=== PATIENT | female | born 1950 | race Caucasian/White ===

== ENCOUNTER 2018-08-18 00:51 | Outpatient (CLI) | payer MEDICARE, MEDICAID, SELFPAY ==
--- NOTE | 2018-08-18 12:00 | DI.MAMMO_ITS ---
SYMPTOMS/DIAGNOSIS: SCREENING, Z12.31 MAMMOGRAM: Mammograms were interpreted according to the usual protocol including computer analysis with CAD system, tomosynthesis and C view imaging. The breasts are of moderate density with fairly symmetrical distribution of fibroglandular tissue. No dominant mass or clumped microcalcification is identified in either breast. The current examination is compared with previous examinations including 03/27 and there has been no gross interval change in appearance in comparison with the previous studies. CONCLUSION: No specific evidence of malignancy at this time. Routine screening examinations are suggested at yearly intervals in this age group according to the ACS/ACR guidelines. Category I. Breast density Category B. MQSA ASSESSMENT OF FINDINGS: Negative. Category 1. Patient will receive a letter notifying them of these results. BI-RADS category B. There are scattered areas of fibroglandular density.
[2018-08-18 12:02] LABS: HCT 42.4 % (36.0-46.0); HGB 13.7 g/dL (12.0-15.5); Mean Corp. HGB Concentration 32.3 g/dL (32.0-36.0); Mean Corpuscular Hemoglobin 29.8 pg (27.0-33.0); Mean Corpuscular Volume 92.2 fL (80-95); Mean Platelet Volume 11.5 fL (8.0-11.0); Platelet Count 254 x1000/uL (130-400); RBC Distribution Width 13.8 % (11.7-14.6); White Blood Cell Count 9.98 k/cumm (4.4-10.8)
[2018-08-18 12:44] LABS: ALT 38 U/L (12-78); AST 28 U/L (15-37); Albumin 3.8 g/dL (3.4-5.0); Alkaline Phosphatase 97 U/L (46-116); Anion Gap 8.2 mmol/L (3-11); BUN 19 mg/dL (7-18); Bilirubin, Total 0.5 mg/dL (0.2-1.0); CO2 28.8 mmol/L (21.0-32.0); CREATININE 0.99 mg/dL (0.55-1.02); Calcium 9.5 mg/dL (8.5-10.1); Chloride 104 mmol/L (98-107); Cholesterol 205 mg/dL (50-200); Estimated GFR 55.61 (mL/min/1.73m2); Glucose 95 mg/dL (70-100); HDL Cholesterol 75 mg/dL (40-60); LDL CHOLESTEROL 104 mg/dL (<100); Magnesium 2.2 mg/dL (1.8-2.4); Potassium 4.5 mmol/L (3.5-5.1); Sodium 141 mmol/L (136-145); TSH (W/Ref FT4) 5.98 uIU/mL (0.358-3.74); Total Protein 7.3 g/dL (6.4-8.2); Triglyceride 61 mg/dL (30-150)
[2018-08-18 13:01] LABS: Vitamin D 25 Total 43.2 ng/ml (30-100)
[2018-08-18 13:05] LABS: FREE T4 0.98 ng/dL (0.76-1.46)
== END 2018-08-18 01:11 ==
PROVIDERS: PCP Family Medicine; Visit Provider Family Medicine
DX: Z12.31 Encounter for screening mammogram for malignant neoplasm of breast (principal); F41.9 Anxiety disorder, unspecified; R11.0 Nausea; M81.0 Age-related osteoporosis without current pathological fracture; E78.89 Other lipoprotein metabolism disorders
CPT/HCPCS: 36415; 77063; 77067; 80053; 80061; 82306; 83721; 85027; 83735; 84439; 84443

== ENCOUNTER 2018-11-07 11:34 | Outpatient (REF) | payer MEDICARE, MEDICAID, SELFPAY ==
[2018-11-08 11:08] LABS: Campylobacter PCR SEE COMMENTS; Salmonella PCR SEE COMMENTS; Shiga Toxin PCR SEE COMMENTS; Shigella/Enteroinvasive Ecoli SEE COMMENTS
== END 2018-11-07 11:54 ==
LOC: LBN 11:34
PROVIDERS: PCP Family Medicine; Visit Provider Nurse Practitioner Family
DX: R19.7 Diarrhea, unspecified (principal)
CPT/HCPCS: 87505; 87177; 87324

== ENCOUNTER 2018-11-22 13:07 | Outpatient (CLI) | payer MEDICARE, MEDICAID, SELFPAY ==
--- NOTE | 2018-11-22 13:00 | DI.RAD_ITS ---
SYMPTOMS/DIAGNOSIS: RT HIP PAIN, M25.551, LOW BACK PAIN, M54.5 PELVIS AND RIGHT HIP: Comparison is made with pelvis dated 5May16. The hip joint spaces are well maintained. There is prominent acetabular spurring as well as prominent spurring from both femoral heads. The findings appear to have progressed when compared with the previous exam. The SI joints show mild spurring inferiorly. Spurring is also noted from the greater trochanters and iliac wings. IMPRESSION: Moderate to severe degenerative changes with prominent spurring of both hips. LUMBAR SPINE: Comparison is made with [id number]. There are no compression fractures. There are prominent endplate osteophytes largest in the lower thoracic region. There are prominent facet degenerative changes at L 3 - 4 through L 5 - S 1. There is mild spondylolisthesis secondary to the facet degenerative changes at L 4 - 5. There is also mild L 4 - 5 disc space narrowing. The L 5 - S 1 disc space also shows moderate narrowing. No spondylolysis or scoliosis is seen. IMPRESSION: Degenerative changes greatest in the lower lumbar spine particularly of the facet joints.
[2018-11-22 14:45] LABS: TSH (W/Ref FT4) 2.66 uIU/mL (0.358-3.74)
== END 2018-11-22 13:27 ==
PROVIDERS: PCP Family Medicine; Visit Provider Family Medicine
DX: M25.551 Pain in right hip (principal); M54.5 Low back pain; R79.89 Other specified abnormal findings of blood chemistry; M16.0 Bilateral primary osteoarthritis of hip; M51.37 Other intervertebral disc degeneration, lumbosacral region
CPT/HCPCS: 36415; 85027; 86900; 86901; 72110; 73502; 84443

== ENCOUNTER 2019-01-09 14:13 | Outpatient (CLI) | payer MEDICARE, MEDICAID, SELFPAY ==
--- NOTE | 2019-01-09 13:08 | DI.RAD_ITS ---
SYMPTOM/DIAGNOSIS: HIP PAIN RIGHT HIP: Comparison is made with 11/22/18. Prominent spurring is again seen at the acetabula and margin of the femoral head. Spurring is also seen at the greater trochanter. IMPRESSION: Stable moderate degenerative changes of the right hip.
== END 2019-01-09 14:33 ==
PROVIDERS: PCP Family Medicine; Referring Provider Family Medicine; Visit Provider Student in an Organized Health Care Education/Training Program
DX: M25.551 Pain in right hip (principal); M16.11 Unilateral primary osteoarthritis, right hip
CPT/HCPCS: 99203; 99214; 73501

== ENCOUNTER 2019-01-19 00:58 | Outpatient (CLI) | payer MEDICARE, MEDICAID, SELFPAY ==
--- NOTE | 2019-01-19 07:05 | DI.RAD_ITS ---
SYMPTOM/DIAGNOSIS: RT HIP INJECTION, PRIMARY OA, M16.11 RIGHT HIP INJECTION: Fluoroscopy Time: 7.9 seconds Fluoroscopy was utilized by Dr Morrell during the performance of a right hip injection. Contrast confirms an intra-articular injection. Please refer to the procedure report for complete details.
--- NOTE | 2019-01-19 09:59 | W.PROCNOTE ---
Date of service: 01/19/19 Time of Service: 09:59 Procedure Note Date of procedure: 01/19/19 Procedure: Right Hip Injection with Fluoroscopic Guidance Surgeon/Proceduralist/Physician: Luther Morrell Procedure Diagnosis: Right Hip Osteoarthritis Procedure Indications: Colleen has had persistent and progressive pain of the RIGHT hip. Her location of pain was atypical with mostly posterior and lateral pain Noninvasive measures have been tried. To serve as diagnostic test, an injection under fluoroscopy was recommended. I had discussed the risks of the procedure and the patient elected to proceed. Procedure Description: Colleen was greeted in the flouroscopy room. The correct side was identified and the consent was reviewed with the patient and signed. The patient was then placed in the supine position on the fluoroscopy table. The RIGHT hip was then prepped with Chloraprep. The anterolateral injection starting point was identiifed by bony landmarks and fluoroscopy. The skin and soft tissue in the tract of the injection was anesthetized with 1% Lidocaine. A spinal needle was then inserted deep into the hip joint at the level of the lateral femoral neck under fluoroscopic guidance. A small amount of Omnipaque solution was injected to confirm intraarticular placement. Once confirmed, the hip was injected with 4cc of 0.5% Bupivicaine and 3cc of 1% Lidocainel. A bandaid was placed on the injection site. The patient tolerated the procedure well and noted significant improvement in pre-injection pain along with the ability to walk with less assistance.
[2019-01-19] MEDS: Bupivacaine 0.5% Pres-Free 10 ML VIAL IJ (10:46)
[2019-01-19] MEDS: Omnipaque 300 MG/ML 10 ML BTL IJ (10:47)
== END 2019-01-19 01:18 ==
PROVIDERS: PCP Family Medicine; Visit Provider Student in an Organized Health Care Education/Training Program
DX: M16.11 Unilateral primary osteoarthritis, right hip (principal); M25.551 Pain in right hip
CPT/HCPCS: 20610; 77002

== ENCOUNTER 2019-02-02 07:31 | Outpatient (CLI) | payer MEDICARE, MEDICAID, SELFPAY ==
[2019-02-02 09:19] LABS: HCT 40.7 % (36.0-46.0); HGB 13.4 g/dL (12.0-15.5); Mean Corp. HGB Concentration 32.9 g/dL (32.0-36.0); Mean Corpuscular Hemoglobin 30.2 pg (27.0-33.0); Mean Corpuscular Volume 91.9 fL (80-95); Mean Platelet Volume 11.2 fL (8.0-11.0); Platelet Count 247 x1000/uL (130-400); RBC 4.43 m/cumm (4.00-5.20); RBC Distribution Width 13.9 % (11.7-14.6); White Blood Cell Count 5.58 k/cumm (4.4-10.8)
--- NOTE | 2019-02-02 09:27 | HPE_ITS ---
Assessment and Plan (1) Primary osteoarthritis of right hip: Current visit: No Status: Chronic Plan: Patient is a reliable historian and denies any areas of skin breakdown along the groin and anterior leg. Educated patient that if she develops any lesions, redness or breakdown to contact office as skin concerns would be a reason to cancel surgery. Patient gives verbal understanding. Educated patient on surgery covering surgical technique via prosthetic models, recovery process, benefits and risks including but not limited to risk of infection, blood clot, damage to soft tissue/blood vessels/nerves in detail. After discussion patient gives verbal understanding of risks and elects to proceed with scheduling surgery. Patient and her partner had opportunity to have questions answered to their satisfaction. They will contact office if issues arise. Patient will continue to be scheduled for right total hip replacement with Dr. Morrell. History of Present Illness Narrative: Ms. Momin is a 68-year-old female who presents to clinic with her partner, Alonso, for scheduled preoperative visit for right total hip replacement with Dr. Morrell. Pain has been present for several years but worse over the past few months. Patient reports following the initial aggravation of her discomfort it has only continued to be more severe over the past several weeks causing her to need to ambulate with crutches for approximately the last 2 months. States pain is located along her buttocks with ambulation. Pain is further aggravated with prolonged walking and worse so with her first few steps. Although she denies any anterior groin pain her discomfort is elicited with hip range of motion. Denies pain aggravated with laying or with sitting. Denies any injuries or falls. Due to her discomfort she received an intraarticular injection under fluroscopy by Dr. Morrell on 01/19/19 which helped for a few minutes and made her realize that her baseline pain was worse than she had thought. Denies any pain medications or ice/heat application. Patient previously had x-rays obtained on 11/22/2018 as well as on 01/09/2019 which showed significant osteophytes along the acetabulum and femoral head, loss of contour of femoral head/neck, sclerosis and decreased joint space consistent with severe degenerative changes. Due to her continued pain and known right hip arthritis that causes difficulty completing desired activity despite rest, using assistive device and intra-articular injection Dr. Morrell offered surgical intervention and patient was eager to proceed. Pertinent Surgical Information Denies past medical history of: Hypertension, stroke, cardiac issues, angina, asthma, COPD, renal issues, liver issues, hepatitis, gastrointestinal ulcers, hyperlipidemia, bleeding disorders, seizures, migraines, diabetes, autoimmune disorders Denies prior complications from surgery or anesthesia. Review of Systems Constitutional Denies fever(s), Denies frequent falls and Denies headache(s) Eyes Denies change in vision ENT Denies dizziness, Denies ear discharge, Denies headache(s), Denies epistaxis, D enies nasal discharge and Denies sore throat Cardiovascular Denies chest pain, Denies rapid heart rate, Denies irregular heart rhythm, Denies dyspnea, Denies dyspnea on exertion, Denies orthopnea, Denies paroxysmal nocturnal dyspnea and Denies slow heart rate Comments: Reports she does not wear CPAP machine currently; has plans to repeat sleep study Respiratory Denies cough, Denies dyspnea, Denies dyspnea on exertion and Denies wheezing Gastrointestinal Denies abdominal pain, Denies melena, Denies hematochezia, Denies constipation, Denies diarrhea, Denies nausea and Denies vomiting Genitourinary Denies hematuria, Denies dysuria and Denies urinary urgency Musculoskeletal Reports as per HPI, Denies numbness and Denies tingling Neurologic Denies dizziness, Denies frequent falls, Denies headache(s), Denies numbness and Denies tingling Allergic/Immunologic Denies wheezing [facility] Medical History (Updated 02/02/19 @ 13:14 by Anne Barrera) Acute cystitis (Inactive) Alcohol intake above recommended sensible limits (Chronic 09/14/13) Anxiety (Chronic 03/31/12) Cervical high risk human papillomavirus (HPV) DNA test positive (Chronic 12/17/11) Closed displaced fracture of lateral malleolus of right fibula (Inactive 09/23/15) Degenerative spondylolisthesis (Chronic 08/31/13) Diarrhea (Inactive 09/29/16) Diverticulosis of colon without diverticulitis (Chronic) Ganglion of tendon sheath (Chronic) Insomnia (Chronic 04/12/14) Intention tremor (Chronic) Moderate obstructive sleep apnea (Chronic 01/10/16) Osteoporosis (Chronic) Smoker (Chronic 11/01/14) Tinnitus (Chronic 02/08/14) Vaginal atrophy (Chronic 11/01/14) Surgical History (Updated 02/02/19 @ 13:14 by Anne Barrera) Appendectomy colposcopy Tonsillectomy Family History Mother Dementia Neoplasm Father Neoplasm Social History (Updated 08/10/18 @ 07:56 by Michael Evans) Smoking/Tobacco Use Status: Former Tobacco Use Quit Date: 02/09/18 Alcohol Intake: former Drug use: Never Substance use type: does not use Pets and animals: No What type of physical activity do you participate in: none Amanda/Catholic: Jainism Special amanda needs: Yes (INDUCTION BRAZER TO COME PRAY WHEN DYING.) Do you feel safe in your relationship?: Yes Meds Home Medications Medication Instructions Recorded Confirmed Type Caltrate-600 With Vit D Tab 3 ea PO DAILY 09/19/12 02/02/19 History Centrum Silver Tablet 1 ea PO DAILY 09/19/12 02/02/19 History gabapentin 300 mg capsule 600 mg PO HS #360 tab 08/09/18 02/02/19 Rx escitalopram oxalate 10 mg tablet 10 mg PO DAILY #30 tab 09/27/18 02/02/19 Rx nortriptyline 25 mg capsule 50 mg PO QHS #180 cap 11/22/18 02/02/19 Rx nicotine 21 mg/24 hr daily 1 patch TD DAILY #28 each 12/21/18 02/02/19 Rx transdermal patch Allergies Allergy/AdvReac Type Severity Reaction Status Date / Time ibuprofen Allergy Unknown ITCHING, Verified 02/02/19 09:53 FACE SWELLS Sulfa (Sulfonamide AdvReac Unknown NAUSEA Verified 02/02/19 09:53 Antibiotics) Exam Const General: cooperative and no acute distress [facility] Head: normal to inspection, normocephalic and atraumatic Ears: external ears normal General nose exam: external nose normal and no nasal discharge Face and sinus: face symmetric Mouth: oral mucosae normal, lip normal, tongue normal and moist mucous membranes Teeth and gingiva: dentition normal Throat: posterior oropharynx normal Eyes General: appearance normal, both eyes and all related structures Pupils: PERRL EOM: EOM intact bilaterally Neck Neck: trachea midline Carotids: normal carotid upstroke Lymphatic: no lymphadenopathy noted Resp Effort & Inspection: normal respiratory effort and able to speak in complete sentences Auscultation: clear to auscultation bilaterally, no rales, no rhonchi and no wheezes Cardio Heart Sounds: S1 normal, S2 normal, no murmurs and no other Pulses: radial pulses present bilaterally GI Palpation: soft, no hepatosplenomegaly and nontender Auscultation: normal bowel sounds Extrem Other: Right hip examination: Patient is able to flex her hip to approximately 90 degrees which elicits posterior lateral hip discomfort. Patient is able to complete straight leg raise and Stitchfield test which causes slight aggravation along the posterior aspect of her hip. Results Labs : 02/02/19 09:10 02/02/19 09:10 Laboratory Results - last 24 hr 02/02/19 09:10 WBC 5.58 RBC 4.43 Hgb 13.4 Hct 40.7 MCV 91.9 MCH 30.2 MCHC 32.9 RDW 13.9 Plt Count 247 MPV 11.2 H
[2019-02-02 10:12] LABS: Anion Gap 8.4 mmol/L (3-11); BUN 21 mg/dL (7-18); CO2 27.6 mmol/L (21.0-32.0); CREATININE 0.87 mg/dL (0.55-1.02); Calcium 9.4 mg/dL (8.5-10.1); Chloride 104 mmol/L (98-107); Glucose 99 mg/dL (70-100); Potassium 4.2 mmol/L (3.5-5.1); Sodium 140 mmol/L (136-145)
== END 2019-02-02 07:51 ==
PROVIDERS: PCP Family Medicine; Visit Provider Student in an Organized Health Care Education/Training Program
DX: Z01.812 Encounter for preprocedural laboratory examination (principal); M16.11 Unilateral primary osteoarthritis, right hip; Z01.818 Encounter for other preprocedural examination
CPT/HCPCS: 36415; 80048; 85027; 86850; 86900; 86901; NC

== ENCOUNTER 2019-02-09 05:44 | Inpatient (IN) | payer MEDICARE, MEDICAID, SELFPAY ==
[2019-02-02 08:00] VITALS: BP 125/76; PULSE 62; RESP 18; TEMP 36.7; O2SAT 96
[2019-02-02 08:09] VITALS: BP 125/76; PULSE 62; RESP 18; TEMP 36.7; O2SAT 96
[2019-02-09] VITALS (17 sets, daily range): BP systolic 92–138; BP diastolic 53–78; PULSE 45–66; RESP 12–18; TEMP 36.1–36.7; O2SAT 94–100
[2019-02-09] MEDS: Acetaminophen 500 MG TAB 1000 MG PO ×3 (06:39→19:48)
[2019-02-09] MEDS: Celecoxib 200 MG CAP 400 MG PO (06:39)
[2019-02-09] MEDS: Lactated Ringers 1,000 ML 80 ML IV ×3 (06:40→23:50)
[2019-02-09] MEDS: ceFAZolin 2 GM/50 ML BAG IVPB (07:40)
[2019-02-09] MEDS: Bupivacaine 0.25% Pres-Free 30 ML VIAL (08:20)
[2019-02-09] MEDS: Ketorolac 30 MG/ML VIAL (08:20)
[2019-02-09] MEDS: Normal Saline 20 ML VIAL (08:21)
--- NOTE | 2019-02-09 09:05 | DI.RAD_ITS ---
SYMPTOM/DIAGNOSIS: OA RT HIP RIGHT HIP Fluoroscopy Time: 39.1 sec., 5.99 mGy The intraoperative examination demonstrates a LILY. The prosthesis is in excellent position. Surrounding bone intact.
--- NOTE | 2019-02-09 10:08 | DI.RAD_ITS ---
SYMPTOM/DIAGNOSIS: S/P RT LILY PORTABLE POSTOPERATIVE EXAMINATION OF THE RIGHT HIP: A right hip prosthesis appears to be in good position, unchanged when compared with the intraoperative examination of the same date.
--- NOTE | 2019-02-09 12:33 | ROE_ITS ---
Date of service: 02/09/19 Time of Service: 09:49 Operative Note DATE OF PROCEDURE: 02/09/19 PRE-OP DIAGNOSIS: Right Hip Osteoarthritis POST-OP DIAGNOSIS: same PROCEDURE: Right Anterior Total Hip Arthroplasty SURGEON: Luther Morrell MANAGER STUDIO: Anne Barrera ANESTHESIA: spinal ESTIMATED BLOOD LOSS: 200 PATHOLOGY: none sent COMPLICATIONS: None Patient was transported to: PACU Patient's condition: stable Implants: 1. Depuy [place] Acetabular Component, 52mm 2. Depuy Acetabular Liner, [id number] 3. Depuy Corail Coxa Vara Femoral Stem, Size 15 4. Depuy Altrx Ceramic Femoral Head, Size 36+1.5mm Indications: I have seen Colleen in clinic for symptoms of hip arthritis, confirmed with radiographic findings. She has exhausted nonoperative methods and was having significant limitations in daily function and desired better function and less pain. I discussed the technical details of a hip replacement. I explained the risks of the procedure to include, but not limited to, bleeding, infection, pain, stiffness, fracture, damage to nerves and vessels, damage to muscles and tendons, loosening, instability, leg length inequality, need for repeat procedure, blood clot and cardiopulmonary demise. Despite these risks, Colleen elected to proceed. Findings: There was significant signs of arthritis throughout the hip. There were encroaching osteophytes around the entirety of the acetabulum, small lateral neck osteophyte, and floor osteophyte of the acetabulum. Procedure Description: Colleen was greeted in the preoperative holding area where the correct side was identified and marked. The consent was reviewed with the patient and signed. The history and physical was updated. All questions were answered. Colleen was taken back to the operating room. A spinal anesthestic was then administered. The patient was placed into the supine position on the operating room table. The patient was then positioned onto the ARCH table. Both feet were wrapped with [place]br[place] cotton wrap along with Coban. The feet were placed in specialized boots for the ARCH table, well seated within the boot and secured. SCDs were applied. The patient was then slid down onto a peroneal post and the nonoperative leg was secured in a leg casanova attached to the table. The operative side was placed into the ARCH table attachment and bed height and positioning was secured. A preoperative AP pelvis was obtained to serve as a reference for determining leg lengths. Prophylactic antibiotics in the form of cefazolin were administered. 1g of Tranxemic Acid was given intravenously within 30 minutes of incision. The right leg was then prepped with Chloraprep and draped in a standard fashion with a large shower-curtain type drape with Iodine impregnated skin protection. A timeout to confirm correct identity, side and site, procedure, allergies, anesthesia, and medical concerns was performed. An obliquely oriented incision was made starting lateral to the ASIS and running distal over the Tensor Fascia Marlene (TFL) muscle belly toward the fibular head, approximately 10cm. The skin and soft tissue was dissected sharply, through Luisana?s fascia, and to the fascia of the TFL. With the fascia and superior border of the IT band identified, the fascia was incised with a new knife just above any perforators from the IT band. The TFL muscle belly was bluntly dissected away from the fascia and moved laterally. The fat between TFL and rectus was identified to ensure the dissection was not within the TFL. Blunt dissection created space between abductors and the capsule and retractor was placed over the lateral femoral neck. The fibers of the rectus femoris tendon were identified and these were freed from the anterior capsule. A second cobra retractor was placed around the medial femoral neck. The TFL was further retracted laterally to show the deep fascia. Careful dissection through this layer identified three main crossing vessels of the lateral femoral circumflex. These were cauterized in multiple locations and then cut without any noticeable bleeding. The TFL was further released bluntly from the deep fascia to expose anterior hip capsule and fat the Celso orthopaedic retractor was then placed beneath the TFL and against sartorius and medial soft tissues to protect and retract the soft tissues. A T-capsulotomy was then performed starting at the superior lateral acetabulum and moving distally to the intertrochanteric ridge. These capsular flaps were tagged with a No. 1 Ethibond and elevated from within. The capsular flaps were released to the shoulder of the lateral neck and to the lesser trochanter to give excellent visualization of the proximal femur. A neck osteotomy was performed using an oscillating saw based on preoperative templates. This cut started in the shoulder and of the lateral neck and exited medially. The saw was at all times directed medially to avoid injury to the greater trochanter. 6cm of traction was applied to the leg and the osteotomy opened. The femoral head was removed with a corkscrew, making sure to protect the TFL on its exit. This was measured on the back table to determing the starting reamer size. Portions of the rectus obscuring visualization were minimally elevated off the superior acetabulum. An anterior retractor was placed over the anterior wall between capsule and labrum. A posterior retractor was placed similarly. This provided excellent visualization. The contents of the cotyloid fossa were removed with electrocautery and the labrum was removed with a knife. There was a notable floor osteophyte. There was significant chondromalacia of the superior acetabulum. Acetabular reaming began with a 47 mm reamer. This first reaming was directed anterior to posterior and medial to get down to the true floor. This was inspected and reamed until the true floor was reached. I then reamed sequentially up to a 51 mm reamer where good fit was obtained. The larger reamers were oriented based on anatomical reference of the anterior and lateral renteria to ensure proper abduction and anteversion. Positioning and size was confirmed with the fluoroscopy. A 52 mm Depuy [place] acetabular component was selected. The acetabulum was reamed around the periphery with the selected acetabular size to prevent a rim fit. The deep tissues were irrigated. The acetabular component was then impacted in a position of about 40-45 degrees of abduction and 15-20 degrees of anteversion, using the patient?s anatomy as the ultimate landmark. Fluoroscopy was used to confirm this. There was excellent shirt ironer of the acetabular component and the inserting handle was removed. The acetabular liner, Depuy 52 x 36 mm polyethylene liner, was inserted and lined up with the tines of the acetabular component. There was no soft tissue interposition. The liner was then impacted into position and confirmed to be well-seated. A portion of the yolie-articular cocktail was then injected around the acetabulum into the capsule and periosteum. This cocktail consisted of 50cc of 0.25% Bupivicaine and 20cc of Exparel, expanded to a total of 120cc. Traction was released from the femur. The leg was rotated to 120 degrees. Any remaining medial capsule was released until the lesser trochanter was easily palpable. A Lopez retractor was placed medially. The lateral capsule was further released into the shoulder to allow access to the greater trochanter. A Lopez retractor was placed over the greater trochanter which allowed the trochanter to flip in front of the capsule for excellent exposure. The leg was brought down into maximal extension and 20 degrees of adduction while ensuring there was no impingement on the acetabulum. Any remnant capsule within the trochanter was released. Piriformis and obturator externis were identified and protected. There was excellent access to the proximal femur. The lateral neck remnant was removed with a rongeur. A blunt canal probe was used to identify the canal and trajectory for later b roaching. A box osteotome initiated the broach course. A small curved rasp and a curved curette were used to work laterally. Broaching then began with a size 8 Corail broach. This was inserted manually around the trochanter and into the canal before mallet blows. The broach was seated to a few millimeters below the cut level based on the neck cut and the preoperative template. Sequential bro aching was continued until a tight fit was obtained with good rotational control of the femur. A trial coxa vara neck was inserted along with a +1.5 trial head. The leg was brought out of extension and adduction and then reduced with traction and internal rotation. The leg was stable anteriorly in a position of 30 degrees of extension and 90 degrees of external rotation. Fluoroscopy was used to ensure there was no fracture and the stem was seated well. Leg lengths were checked with an AP pelvis and pelvic reference points. Once content with the desired offset and leg lengths, the leg was brought back into extension, external rotation and adduction. The periosteum and surrounding tissue was injected with remaining portion of the yolie-articular cocktail. The proximal femur was irrigated as well as the deep tissues. The Depuy [place] coxa vara stem, size 15, was then manually inserted into the proximal femur making sure to control rotation. It was then malleted into position with light blows, giving breaks to allow bone expansion and decrease risk of fracture. The selected Depuy Altrx Ceramic Head, size 36+1.5 mm, was then placed onto the clean and dry trunnion and secured with impaction onto the tapered fit. The leg was brought back out of extension and adduction and reduced with traction and internal rotation. Stability was confirmed with no shuck at 90 degrees of external rotation and 30 degrees of extension. No impingement through range of motion arc. Final x-ray images were obtained with fluoroscopy to confirm adequate positioning and no intraoperative fracture. The deep tissues were thoroughly irrigated with a pulse lavage. The second dose of TXA 1g was administered intravenously. The capsule was then reapproximated with the previously placed Ethibond sutures. The TFL fascia was finally closed with a No. 2 Stratafix, barbed suture. Deep tissues were then reapproximated with 0 Vicryl and a running 2-0 Vicryl. The skin was closed with a running 4-0 Monocryl in a subcuticular fashion. This was reinforced with skin glue. A Mepilex silver dressing was applied. At the end of the case, all counts were correct. Colleen was transferred to the hospital bed without difficulty and suffering no apparent complication. Colleen has a good prognosis. Physical therapy will start today and without restrictions, weight-bearing as tolerated. Aspirin 81mg BID will be used for DVT prophylaxis.
[2019-02-09] MEDS: Calcium 600mg/Vit D 200U TAB 1 TAB PO ×2 (14:01→19:48)
--- NOTE | 2019-02-09 14:57 | PT.INIE ---
Date of service: 02/09/19 Time of Service: 13:42 PT Notes Inpatient Physical Therapy Evaluation Date: 02/09/2019 Referring Doctor: Luther Morrell MD PT Orders: PT CONSULT: Status post right anterior LILY Precautions: Fall. Standard. WBAT on right LE. Patient Profile/Admitting Diagnosis: Patient is a 68-year-old female with primary unilateral osteoarthritis of right hip status post right anterior total hip arthroplasty on postoperative day 0. PMHX: Medical History (Updated 02/02/19 @ 13:14 by Anne Barrera) Acute cystitis (Inactive) Alcohol intake above recommended sensible limits (Chronic 09/14/13) Anxiety (Chronic 03/31/12) Cervical high risk human papillomavirus (HPV) DNA test positive (Chronic 12/17/11) Closed displaced fracture of lateral malleolus of right fibula (Inactive 09/23/15) Degenerative spondylolisthesis (Chronic 08/31/13) Diarrhea (Inactive 09/29/16) Diverticulosis of colon without diverticulitis (Chronic) Ganglion of tendon sheath (Chronic) Insomnia (Chronic 04/12/14) Intention tremor (Chronic) Moderate obstructive sleep apnea (Chronic 01/10/16) Osteoporosis (Chronic) Smoker (Chronic 11/01/14) Tinnitus (Chronic 02/08/14) Vaginal atrophy (Chronic 11/01/14) Surgical History (Updated 02/02/19 @ 13:14 by Anne Barrera) Appendectomy colposcopy Tonsillectomy Social History/Home Situation: Patient lives with significant other Leeroy and in a 1 floor house with small step up to enter without rails. She has 3 steps to the kitchen without rails. Patient states that she has been using bilateral axillary crutches for the past 2 to 3 months indoors and outdoors as the the pain on the right hip had become unbearable. She was independent with all aspects of mobility ADLs using bilateral axillary crutches. Current Functional Limitations: Need for assistance for all transfer and ambulation task performance using front wheeled walker Equipment Owned/DME: Bilateral axillary crutches, grab bar Subjective: Patient is agreeable to a PT consult and treatment today. She denies headache, chest pain, and palpitations. She does report feeling woozy when she sat up at the edge of the bed. She reports that with weight bearing she does not have considerable pain but she knows that the hip is there. She complains of continued inability to sleep well and is hopeful that while recuperating at the hospital she can get the sleep the sleep she needs. She is open to having home health physical therapy upon discharge in order to ensure her safe transition back to home. Objective: General Observation: Patient seen resting in bed. 1 L of oxygen supplementation via NC. IV in right UE. Anti-thromboembolic pump on bilateral legs. TEDS on bilateral legs. Cold pack on right hip. Mepilex Ag over surgical incision. Minimal edema noted adjacent to surgical incision. Intention tremor observed on the head and neck. Mental Status: Alert and oriented x4 Pain: 0/10 pain on the right hip, 1/10 pain with mobility performance. ROM: Right Upper Extremity: Shoulder Flexion WFL. Shoulder abduction WFL. Elbow flexion WFL. Wrist flexion WFL. Functional opening and closing of hand WFL. Left Upper Extremity: Shoulder Flexion WFL. Shoulder abduction WFL. Elbow flexion WFL. Wrist flexion WFL. Functional opening and closing of hand WFL. Right Lower Extremity: Hip flexion allows up to 170 degrees. Hip abduction WFL. Knee flexion WFL. Ankle dorsiflexion WFL. Ankle plantarflexion WFL. Left Lower Extremity: Hip flexion WFL. Hip abduction WFL. Knee flexion WFL. Ankle dorsiflexion WFL. Ankle plantarflexion WFL. Strength: Right Upper Extremity: Shoulder flexors 5/5. Shoulder abductors 5/5. Elbow flexors 5/5. Elbow extensors 5/5. Gear Hobber Set Up Operator strong. Left Upper Extremity: Shoulder flexors 5/5. Shoulder abductors 5/5. Elbow flexors 5/5. Elbow extensors 5/5. Gear Hobber Set Up Operator strong. Right Lower Extremity: Hip flexors 4/5. Hip abductors 5/5. Knee flexors 4/5. Knee extensors 4/5. Ankle dorsiflexors 5/5. Ankle plantarflexors 5/5. Left Lower Extremity:Hip flexors 5/5. Hip abductors 5/5. Knee flexors 5/5. Knee extensors 5/5. Ankle dorsiflexors 5/5. Ankle plantarflexors 5/5. Sensation: Intact as to pain and pressure on bilateral lower extremities. Bed Mobility/Transfers: Rolling SBA with HOB 30 degrees Supine to sit SBA with HOB 30 degrees Sit to supine SBA with HOB 30 degrees Sit to stand CGA Stand to sit CGA Bed to chair CGA Chair to bed CGA Gait: Patient was able to tolerate short distance ambulation of (8 feet +1 turn +2 steps backs) x 2 using FWW with WBAT on right with step to gait pattern with CGA assist and IV pole management of this PT. Minimal verbal cues needed for for walker management and safety. Balance: Static Sitting: Normal Dynamic Sitting: Normal Static Standing: Good Dynamic Standing: Fair Special Tests: Mobility Limitations Standardized Measure [facility] AM-PAC 6 clicks Basic Mobility Inpatient Short Form: Raw Score: 20 CMS Score: 36% deficit Informed Consent/Education: Patient instructed in purpose of PT consult and plan of care. Patient was instructed with performing hourly exercises consisting of: 1 ankle pumping x30, bilateral quadriceps setting held for 5 counts x10, and alternate [id number] x10 ensuring deep breathing exercises in between each activity. Assessment: Patient presents with clinical signs and symptoms consistent with current/admitting diagnoses and postoperative status that have resulted to mobility limitations, gait instability, generalized weakness, and impairment of motor control as demonstrated by the following impairment level findings: 1. Postoperative weakness of R hip major muscle groups 2. Impaired standing balance 3. Impaired activity tolerance Impairments are contributing to the following functional limitations: 1. Dependent bed mobility skills 2. Increased dependence with transfers 3. Inability to safely ambulate without assistive device and physical assistance 4. Increase completion time for mobility ADL performance 5. Increased fall risk 6. Inability to negotiate steps alone safely Patient is assessed as a [id number] moderate complexity based on the following: History: 68-year-old cognitively intact female with primary unilateral osteoarthritis of right hip status post right anterior total hip arthroplasty on postoperative day 0 Examination: Demonstrable impairment in strength, balance, and mobility level with underlying impairments and functional limitations as documented above Presentation:Evolving Decision Makin moderate complexity Goals: Goals X1 week 1. Supine-Sit independent 2. Sit-Supine independent 3. Sit-Stand independent 4. Stand-Sit independent 5. Bed-Chair independent 6. Chair-Bed independent 7. Independent gait on level surface with use of least restrictive device for at least 300 feet without report of pain nor dyspnea 8. Independent stair negotiation while holding onto bilateral rails for at least 5 steps without report of pain nor dyspnea 9. Independent with home exercise program 10. Good static and dynamic standing balance/tolerance Plan of Care/Treatment Plan: 1-2x/day, 7 days/week x 1 week. Plan of care has been reviewed with the [employer] providing the service under Physical Therapy direction. Initiate Physical Therapy intervention for strengthening, bed mobility, transfers, gait, stairs, balance training, use of assistive device. DISCHARGE RECOMMENDATIONS: Patient will need a front wheeled walker upon disharge to home in order to maximize mobility and reduce fall risk. 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 Patient will benefit from home health PT services in order to progress mobility level using least restrictive assistive ambulatory device/using no device, assess home safety, identify additional equipment needs, and establish a functional maintenance program that will increase ability of patient to remain at home. TREATMENT CODE/TIME: 05171 x30 minutes, 9753 0 x 9 minutes, 9711 0 x 9 minutes, beginning at 13:42 PM. Thank you very much for this referral. Gabriela Rodriguez PT, DPT, CLT [facility]
[2019-02-09] MEDS: traMADol 50 MG TAB PO (18:22)
[2019-02-09] MEDS: Normal Saline Flush 10 ML SYR IV (19:47)
[2019-02-09] MEDS: HYDROmorphone 2 MG/ML VIAL 0.5 MG IVP (19:48)
[2019-02-09] MEDS: Celecoxib 100 MG CAP 200 MG PO (19:49)
[2019-02-09] MEDS: Gabapentin 300 MG CAP 600 MG PO (22:24)
[2019-02-09] MEDS: LORazepam 0.5 MG TAB PO (22:25)
[2019-02-10 03:50] VITALS: BP 103/64; PULSE 66; RESP 18; TEMP 36.5; O2SAT 95
[2019-02-10] MEDS: LORazepam 0.5 MG TAB PO ×3 (04:20→21:27)
[2019-02-10] MEDS: traMADol 50 MG TAB PO ×3 (06:10→15:26)
[2019-02-10 07:10] VITALS: BP 109/69; PULSE 73; RESP 19; TEMP 36; O2SAT 95
[2019-02-10] MEDS: Acetaminophen 500 MG TAB 1000 MG PO ×3 (08:11→20:57)
[2019-02-10] MEDS: Calcium 600mg/Vit D 200U TAB 1 TAB PO ×3 (08:12→20:58)
[2019-02-10] MEDS: Multivitamin w/Minerals TAB 1 TAB PO (08:12)
[2019-02-10] MEDS: Celecoxib 100 MG CAP 200 MG PO ×2 (08:12→20:57)
[2019-02-10] MEDS: Pantoprazole 40 MG TABCR PO (08:12)
[2019-02-10] MEDS: Nicotine 21 MG/24 HR PATCH TD (08:14)
--- NOTE | 2019-02-10 08:42 | PDOC.CMIN ---
Care Management Initial Assess REASON FOR HOSPITALIZATION:: Right Hip DJD PAST MEDICAL HISTORY/PAST SURGICAL HISTORY:: Acute cystitis, alcohol abuse, anxiety, HPV, closed displaced fracture of lateral malleolus of right fibula, degenerative spondylolisthesis, diarrhea, diverticulosis of colon without diverticulitis, ganglion of tendon sheath, insomnia, intention tremor, moderate STEPHANIE, osteoporosis, smoker, tinnitus, vaginal atrophy, appendetomy, colonoscopy, tonsillectomy PREVIOUS FUNCTIONAL STATUS/SOCIAL/FAMILY SUPPORTS:: Colleen resides in [place], [place]. Her significant other, Leeroy resides with her as she provides oversight due to Alzheimer's Dementia. Colleen is independent at baseline with all ADLs in the community. CURRENT FUNCTIONAL STATUS:: Colleen was lying in bed, eyes closed when CM entered. Her SO, was at her bedside. She reported wanting to rest, which CM permitted. Dr. Morrell reported Colleen will remain at [facility] overnight to rest prior to returning home tomorrow. ADVANCE DIRECTIVES:: On file at [facility]: Bhavesh and Ross [employer]omin; Co-Agents Has patient been provided with information about the portal?: Yes Did the patient sign up for the portal?: No CODE STATUS:: Full Code INSURANCE COVERAGE / FINANCIAL ISSUES:: [facility] CURRENT HOME/COMMUNITY SERVICES/EQUIPMENT:: No current services or equipment. PRIMARY CARE PHYSICIAN:: Radhika Amaro DO POTENTIAL DISCHARGE NEEDS:: [facility] and [facility] referrals through [facility], FWW coordination, PT evaluation. PATIENT/FAMILY EDUCATION NEEDS:: Review of community based supports, discharge instructions, discuss self care needs upon discharge [facility]. ANTICIPATED BARRIERS TO DISCHARGE:: None identified. TRANSPORTATION:: Via private vehicle with family. PLAN:: Colleen will return home when ready per MD. She will have new FWW through [facility] at patient request as well as referrals for [facility] and [facility] through [facility]. Colleen will follow up with Dr. Morrell and her plan of care as prescribed. She will transport via private vehicle with family.
--- NOTE | 2019-02-10 08:52 | PT.INTREAT ---
Date of service: 02/10/19 Time of Service: 08:53 PT Notes Inpatient Physical Therapy Treatment Note [facility] Date: 02/10/19 PRECAUTIONS: Fall, WBAT R SUBJECTIVE: Colleen states that she is feeling a little sore this morning, but is agreeable to participating in PT. OBJECTIVE: PAIN: Patient c/o soreness in R hip area BED MOBILITY/TRANSFERS Supine-sit: I Sit-stand: S Stand-sit: S GAIT Assistive Device: FWW Weight bearing: WBAT R Assist: SBA Distance: 100' x2 THEREX: Patient completed a LE strengthening and stabilization program, in both seated and supine positions, as per flow sheet. STAIRS: Up/down 3x4 and 2x6 using B axillary crutches and a step-to pattern with SBA TOILETING: Patient toileted with supervision for transfers. ASSESSMENT: Patient tolerated session with c/o R hip soreness t/o session. Patient tolerated a progression in gait distance with FWW support and SBA as well as the addition of stair training. She would benefit from continued strengthening and gait training for improved mobility and activity tolerance. PLAN: As per primary PT TREATMENT CODE/TIME: 30 minutes; 60713, [id number]
[2019-02-10] MEDS: Normal Saline Flush 10 ML SYR IV ×2 (09:02→21:23)
--- NOTE | 2019-02-10 09:41 | PHARADMIT ---
Admission Pharmacy Clinical Review right hip djd Code Status Full Code Current Weight Wgt-94.8 kg Renally Cleared and Narrow Therapeutic Index Meds CrCl~ 62.8 mL/min Meds-OK QTc Value / Action Taken none BP Control, Fever BP-109/69 Tmax- 36.7C Electrolytes reviewed na DVT Prophylaxis TEDS, SCDs Opiate Usage / Scheduled Bowel Regimen Ordered Yes Yes Plt/SCr for Heparin / Enoxaparin na SCr-0.87 INR for Warfarin na H/H stable, WBC/Bands na Antibiotic appropriateness Ancef Cultures and Sensitivities none Surgical ABX d/c within 24 hr Yes DM control / Insulin Dose na Heart Failure (Check EF%) (ROMAN's, B-Block, Diuretics) none IV to PO Switch No Home Meds Reviewed Yes Home Meds Not Ordered Lexapro, Clonidine, Atarax, Comments
[2019-02-10 11:03] VITALS: BP 105/68; PULSE 73; RESP 18; TEMP 36; O2SAT 98
--- NOTE | 2019-02-10 11:09 | DSE_ITS ---
Date of service: 02/11/19 Time of Service: 08:52 DS: Diagnosis Discharge Diagnosis (1) Primary osteoarthritis of right hip: Status: Chronic Discharge Plan Disposition Patient Disposition: HOME W/HOME HEALTH SERVICE Condition: Good Discharge Details Reason For Visit: RIGHT HIP DJD Admit Date/Time: 02/09/19 05:44 Admit Provider: Luther Morrell Attending Provider: Luther Morrell Primary Care Provider: Radhika Amaro [facility] Course Hospital Course: Patient was admitted to the medical/surgical floor following the procedure. It was tolerated well without any notable medical, surgical, or anesthetic complications. Mobilization began postoperatively. The gentile catheter was removed and voiding spontaneously. Vitals were stable. Physical therapy worked with the patient and was cleared for discharge home. No acute medical issues. Home Meds and New Rx's Prescriptions: New celecoxib 200 mg capsule 200 mg PO BID PRN (Reason: pain) Qty: 60 RF: 1 acetaminophen 500 mg tablet 1,000 mg PO Q8H PRN (Reason: pain) Qty: 90 RF: 3 pantoprazole 40 mg tablet,delayed release (DR/EC) 40 mg PO DAILY Qty: 30 RF: 0 tramadol 50 mg tablet 50 mg PO Q4H PRN (Reason: pain) Qty: 12 RF: 0 Continued gabapentin 300 mg capsule 600 mg PO HS Qty: 360 RF: 11 lorazepam 0.5 mg tablet 0.5 mg PO QHS MDD 2 PRN (Reason: insomnia) Qty: 90 RF: 3 nortriptyline 25 mg capsule 50 mg PO QHS Qty: 180 RF: 6 escitalopram oxalate 10 mg tablet 10 mg PO DAILY Qty: 30 RF: 5 CALTRATE-600 WITH VIT D TAB 1 EACH tablet 3 ea PO DAILY RF: 0 CENTRUM SILVER TABLET 1 EACH tablet 1 ea PO DAILY RF: 0 nicotine 21 mg/24 hr patch 24 hour 1 patch TD DAILY Qty: 28 RF: 4 Discharge Instructions Additional Instructions: Dr. Morrell?s Total Hip Discharge Instructions Activity: The most important activity is to walk. You should try to take short walks a few times a day. You have no restrictions on movement or positioning, but do not try to force what you do. You will find some stiffness and weakness with hip flexion (lifting your knee). Do not try to strengthen this too early, continue to practice walking and stairs and this will come. - Outpatient physical therapy can be helpful to help return you to a normal gait and improve your flexibility and strength. This can start around 2 weeks. For some patients, it?s not necessary. Usually this is determined at the time of discharge or at the first post-operative visit. - You should wear the CONRADO hose on both legs for 2 weeks. Dressing: Keep the surgical dressing in place for at least one week. After the first week it may be removed and replace with light gauze and tape or nothing. It may get wet after 3 days but avoid soaking the dressing. If it gets wet, just lightly pat dry. It is important to always keep some gauze between skin folds, especially when you are sitting. Spend some time with the wound exposed when you are lying flat as the incision does wrinkle onto itself. Medications: - You should take Tylenol and an anti-inflammatory Celebrex as your primary pain control medications - You have been prescribed a stronger pain medication Tramadol for breakthrough pain, take as needed as prescribed. - You have also been prescribed a stomach acid reduction agent Pantoprozole to help reduce stomach acid and reflux. - You will be taking Aspirin 81mg twice a day for DVT prevention unless instructed otherwise. - If you have constipation you should take Colace or Miralax (both [id number]). It takes most people 3-4 days to have a bowel movement. Follow-up: 2 weeks 1. Encounter Date and Reason I certify that MALCOM GARCES was seen by Luther Morrell MD on 02/10/19 and that I had a [id number] encounter with this patient that meets the physician face to face encounter requirements. 2. Clinical Findings Supporting Skilled Need and Homebound Status I certify that home health services are medically necessary, include either intermittent usp and/or physical/speech therapy, and that this patient is homebound in that absences from the home require considerable and taxing effort and are infrequent or of short duration, or are attributable to the need to receive medical care. [X] (a) Attached documentation from encounter provides clinical findings supporting skilled need and homebound status (including what assistance patient requires to leave the home). The encounter with the patient was in whole, or in part, for the following medical condition, which is the primary reason for home health care: RIGHT HIP DJD Residential: Physical Therapy: Malcom will benefit from home health physiscal therapy to assist with strengthening and gait training. She has weakness and pain s/p right hip replacement. She has no positioning restrictions and should focus on mobilization around her home and with ADLs. Speech Therapy: Homebound: Malcom is unable to leave her home unassisted due to surgery on the right hip with resultant pain and weakness and gait disturbance. 3. Certification and Authentication I certify that I composed the above information based on my clinical judgement relating to this patient's medical condition and, if applicable, clinical findings communicated to me by the NPP or inpatient physician who performed the Home Health Referral. All further orders will be obtained through Dr. Morrell Stand Alone Forms: Nursing Discharge Form Referrals: Luther Morrell MD [ [facility] STAFF PHYSICIAN] - 02/24/19 10:00 am Activity:: Activity as Tolerated Equipment/Supplies:: Walker Diet:: As Tolerated Discharge Orders Discharge Orders: Discharge Order (Routine); Ordered 02/11/19 Ordered By: Luther Morrell DS: Data Vitals/I&O Vitals and I&O: Vital Signs Temperature 36.0 C L 02/10/19 11:03 Temperature Source Tympanic 02/10/19 11:03 Pulse 73 02/10/19 11:03 Pulse Rhythm Regular 02/10/19 09:06 Respiratory Rate 18 02/10/19 11:03 Respiratory Effort 02/10/19 09:06 Respiratory Depth Normal 02/10/19 09:06 Respiratory Pattern Normal 02/10/19 09:06 Blood Pressure 105/68 02/10/19 11:03 Pulse Oximetry 98 02/10/19 11:03 Respiratory End-tidal CO2 30 02/09/19 10:35 Oxygen Delivery Method Room Air 02/10/19 11:03 Oxygen Flow Rate 0 02/10/19 11:03 Pain Level 0 02/10/19 11:03 Comment 02/10/19 03:50 Intake & Output 02/09/19 02/09/19 02/10/19 11:59 23:59 11:59 Intake Total 1185 / 3580.333 2395.333 / 3580.333 1756.67 / 1756.67 Output Total 325 / 325 1750 / 1750 Balance 860 / 3255.333 2395.333 / 3255.333 6.67 / 6.67 Weight 94.8 kg Intake: IV 1145 / 2210.333 1065.333 / 2210.333 866.67 / 866.67 Oral 40 / 1370 1330 / 1370 890 / 890 Output: Urine 125 / 125 1750 / 1750 Estimated Blood Loss 200 / 200 Other: Urine Color Yellow Yellow Urine Appearance Clear Clear Clear Emesis Description None [facility] Medical History Acute cystitis (Inactive) Alcohol intake above recommended sensible limits (Chronic 09/14/13) Anxiety (Chronic 03/31/12) Cervical high risk human papillomavirus (HPV) DNA test positive (Chronic 12/17/11) Closed displaced fracture of lateral malleolus of right fibula (Inactive 09/23/15) Degenerative spondylolisthesis (Chronic 08/31/13) Diarrhea (Inactive 09/29/16) Diverticulosis of colon without diverticulitis (Chronic) Ganglion of tendon sheath (Chronic) Insomnia (Chronic 04/12/14) Intention tremor (Chronic) Moderate obstructive sleep apnea (Chronic 01/10/16) Osteoporosis (Chronic) Smoker (Chronic 11/01/14) Tinnitus (Chronic 02/08/14) Vaginal atrophy (Chronic 11/01/14) Surgical History Appendectomy colposcopy Tonsillectomy Family History Mother Dementia Neoplasm Father Neoplasm Social History Smoking/Tobacco Use Status: Former Tobacco Use Quit Date: 02/09/18 Alcohol Intake: former Drug use: Never Substance use type: does not use Pets and animals: No What type of physical activity do you participate in: none Amanda/Quaker: Mosque Special amanda needs: Yes (TERRAZZO LAYER HELPER TO COME PRAY WHEN DYING.) Do you feel safe in your relationship?: Yes
--- NOTE | 2019-02-10 12:56 | INDS_ITS ---
Date of service: 02/10/19 Time of Service: 12:56 PT Notes Inpatient Physical Therapy Discharge Summary Dates: 02/10/2019 Dates of Service: 02/09/2019 and 02/10/2019 This is a clinical summary of care provided on the duration of dates listed above. No charge was made in the completion of this documentation. Referring Doctor: Luther Morrell MD PT Orders: PT CONSULT: Status post right anterior LILY Precautions: Fall. Standard. WBAT on right LE. Patient Profile/Admitting Diagnosis: Patient is a 68-year-old female with primary unilateral osteoarthritis of right hip status post right anterior total hip arthroplasty on postoperative day 1. PMHX: Medical History (Updated 02/02/19 @ 13:14 by Anne Barrera) Acute cystitis (Inactive) Alcohol intake above recommended sensible limits (Chronic 09/14/13) Anxiety (Chronic 03/31/12) Cervical high risk human papillomavirus (HPV) DNA test positive (Chronic 12/17/11) Closed displaced fracture of lateral malleolus of right fibula (Inactive 09/23/15) Degenerative spondylolisthesis (Chronic 08/31/13) Diarrhea (Inactive 09/29/16) Diverticulosis of colon without diverticulitis (Chronic) Ganglion of tendon sheath (Chronic) Insomnia (Chronic 04/12/14) Intention tremor (Chronic) Moderate obstructive sleep apnea (Chronic 01/10/16) Osteoporosis (Chronic) Smoker (Chronic 11/01/14) Tinnitus (Chronic 02/08/14) Vaginal atrophy (Chronic 11/01/14) Surgical History (Updated 02/02/19 @ 13:14 by Anne Barrera) Appendectomy colposcopy Tonsillectomy Social History/Home Situation: Patient lives with significant other Leeroy and in a 1 floor house with small step up to enter without rails. She has 3 steps to the kitchen without rails. Patient states that she has been using bilateral axillary crutches for the past 2 to 3 months indoors and outdoors as the the pain on the right hip had become unbearable. She was independent with all aspects of mobility ADLs using bilateral axillary crutches. Current Functional Limitations: Need for assistance for all transfer and ambulation task performance using front wheeled walker Equipment Owned/DME: Bilateral axillary crutches, grab bar Subjective: NT Objective: General Observation: NT Mental Status: NT Pain: NT ROM: Right Upper Extremity: Shoulder Flexion WFL. Shoulder abduction WFL. Elbow flexion WFL. Wrist flexion WFL. Functional opening and closing of hand WFL. Left Upper Extremity: Shoulder Flexion WFL. Shoulder abduction WFL. Elbow flexion WFL. Wrist flexion WFL. Functional opening and closing of hand WFL. Right Lower Extremity: Hip flexion allows up to 170 degrees. Hip abduction WFL. Knee flexion WFL. Ankle dorsiflexion WFL. Ankle plantarflexion WFL. Left Lower Extremity: Hip flexion WFL. Hip abduction WFL. Knee flexion WFL. Ankle dorsiflexion WFL. Ankle plantarflexion WFL. Strength: Right Upper Extremity: Shoulder flexors 5/5. Shoulder abductors 5/5. Elbow flexors 5/5. Elbow extensors 5/5. Chief Diversity Officer strong. Left Upper Extremity: Shoulder flexors 5/5. Shoulder abductors 5/5. Elbow flexors 5/5. Elbow extensors 5/5. Chief Diversity Officer strong. Right Lower Extremity: Hip flexors 4/5. Hip abductors 5/5. Knee flexors 4/5. Knee extensors 4/5. Ankle dorsiflexors 5/5. Ankle plantarflexors 5/5. Left Lower Extremity:Hip flexors 5/5. Hip abductors 5/5. Knee flexors 5/5. Knee extensors 5/5. Ankle dorsiflexors 5/5. Ankle plantarflexors 5/5. Sensation: Intact as to pain and pressure on bilateral lower extremities. Bed Mobility/Transfers: Rolling independent Supine to sit independent Sit to supine independent Sit to stand supervision Stand to sit supervision Bed to chair supervision Chair to bed supervision Gait: Patient is not able to perform level surface ambulation of 100 feet x 2 with SBA using FWW. She is able to tolerate three 4 inch steps and descending to 6 inch steps while holding onto bilateral rails using step to gait pattern. Patient was able to toilet with supervision assist only using FWW. Balance: Static Sitting: Normal Dynamic Sitting: Normal Static Standing: Good Dynamic Standing: Fair Assessment: Patient presents with clinical signs and symptoms consistent with current/admitting diagnoses and postoperative status that have resulted to mobility limitations, gait instability, generalized weakness, and impairment of motor control as demonstrated by the following impairment level findings: 1. Postoperative weakness of R hip major muscle groups 2. Impaired standing balance 3. Impaired activity tolerance Impairments are contributing to the following functional limitations: 1. Dependent bed mobility skills 2. Increased dependence with transfers 3. Inability to safely ambulate without assistive device and physical assistan ce 4. Increase completion time for mobility ADL performance 5. Increased fall risk 6. Inability to negotiate steps alone safely Goals: Goals X1 week 1. Supine-Sit independent MET 2. Sit-Supine independent MET 3. Sit-Stand independent NOT MET 4. Stand-Sit independent NOT MET 5. Bed-Chair independent NOT MET 6. Chair-Bed independent NOT MET 7. Independent gait on level surface with use of least restrictive device for at least 300 feet without report of pain nor dyspnea NOT MET 8. Independent stair negotiation while holding onto bilateral rails for at least 5 steps without report of pain nor dyspnea NOT MET 9. Independent with home exercise program NOT MET 10. Good static and dynamic standing balance/tolerance NOT MET Plan of Care/Treatment Plan: 1-2x/day, 7 days/week x 1 week. Plan of care has been reviewed with the FORESTRY AID TECHNICIAN providing the service under Physical Therapy direction. Initiate Physical Therapy intervention for strengthening, bed mobility, transfers, gait, stairs, balance training, use of assistive device. DISCHARGE RECOMMENDATIONS: Patient will need a front wheeled walker upon discharge to home in order to maximize mobility and reduce fall risk. 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 Patient will benefit from home health PT services in order to progress mobility level using least restrictive assistive ambulatory device/using no device, assess home safety, identify additional equipment needs, and establish a functional maintenance program that will increase ability of patient to remain at home. TREATMENT CODE/TIME: NC. Thank you very much for this referral. Gabriela Rodriguez PT, DPT, CLT [facility]
--- NOTE | 2019-02-10 15:25 | CHAPLAIN ---
Colleen was sitting up in her chair when I visited. She said she is feeling tired, but has also been able to sleep well here. She was raised Muslim but has not attended the Muslim Judaism since she left home, and has visited other churches through out her life. She told me the story of how she met her SO, Leeroy. Colleen seems to be comfortable being here and expects to be discharged today or tomorrow.
[2019-02-10 15:42] VITALS: BP 97/62; PULSE 72; RESP 18; TEMP 36.2; O2SAT 92
[2019-02-10 19:41] VITALS: BP 94/60; PULSE 69; RESP 16; TEMP 36.1; O2SAT 94
--- NOTE | 2019-02-10 20:17 | W.PM.PROGNOT ---
Date of Service Date of service: 02/10/19 Time of Service: 12:17 Assessment and Plan (1) Primary osteoarthritis of right hip: Current visit: No Status: Chronic Colleen is a 68-year-old postop day #1 from her right hip arthroplasty. She is doing well. She is quite tired. She has with physical therapy but still could use some extended time to work with him before going home. Is also give us time to observe her urologist to make sure she is able to function safely at home. We will continue with current pain regimen. Likely discharge home tomorrow with home health services. Continue weightbearing as tolerated assistive devices. Nursing may help with ambulation. Aspirin 81 mg twice daily for DVT prophylaxis. Subjective Interval history since last seen: Colleen reports been doing well. She is just very tired. She finds her self sleeping quite a bit and is quite relieved by that. Due to pain and other circumstances she reports not been able to sleep very much. She has been able to ambulate with nursing and physical therapy. Pain is been well controlled with tramadol. No nausea or vomiting. No chest pain or shortness of breath. Exam Narrative Exam Narrative: Sitting comfortable in the bed. Right hip dressing is clean dry and intact without any significant ecchymosis. Mild swelling. She tolerates internal rotation of 20 degrees and external rotation of 40 degrees and flexion of 90 degrees without problems. She is observed actively flexing the hip in the bed and moving independently. Objective Objective Clinical Data: Vital Signs Temperature 36.5 C 02/11/19 04:05 Temperature Source Temporal Artery Scan 02/11/19 04:05 Pulse 65 02/11/19 04:05 Pulse Rhythm Regular 02/10/19 19:41 Respiratory Rate 18 02/11/19 04:05 Respiratory Effort 02/10/19 19:41 Respiratory Depth Normal 02/10/19 19:41 Respiratory Pattern Normal 02/10/19 19:41 Blood Pressure 104/64 02/11/19 04:05 Pulse Oximetry 97 02/11/19 04:05 Respiratory End-tidal CO2 30 02/09/19 10:35 Oxygen Delivery Method Nasal Cannula 02/11/19 04:05 Oxygen Flow Rate 1 02/11/19 04:05 Pain Level 5 02/11/19 06:08 Comment 02/10/19 15:42 Intake & Output 02/10/19 02/10/19 02/11/19 11:59 23:59 11:59 Intake Total 1756.67 / 2236.67 480 / 2236.67 100 / 100 Output Total 1750 / 2250 500 / 2250 Balance 6.67 / -13.33 -20 / -13.33 100 / 100 Intake: IV 866.67 / 866.67 Oral 890 / 1370 480 / 1370 100 / 100 Output: Urine 1750 / 2250 500 / 2250 Other: Urine Color Yellow Yellow Urine Appearance Clear Clear Voiding Methods Toilet
[2019-02-10] MEDS: Gabapentin 300 MG CAP 600 MG PO (21:21)
[2019-02-10 23:49] VITALS: BP 92/62; PULSE 65; RESP 16; TEMP 36.5; O2SAT 94
[2019-02-11 04:05] VITALS: BP 104/64; PULSE 65; RESP 18; TEMP 36.5; O2SAT 97
[2019-02-11] MEDS: traMADol 50 MG TAB PO (06:08)
[2019-02-11 07:35] VITALS: BP 93/57; PULSE 66; RESP 20; TEMP 36.5; O2SAT 94
[2019-02-11] MEDS: Celecoxib 100 MG CAP 200 MG PO (07:55)
[2019-02-11] MEDS: Calcium 600mg/Vit D 200U TAB 1 TAB PO (07:56)
[2019-02-11] MEDS: Pantoprazole 40 MG TABCR PO (07:56)
[2019-02-11] MEDS: Nicotine 21 MG/24 HR PATCH TD (07:56)
[2019-02-11] MEDS: Acetaminophen 500 MG TAB 1000 MG PO (07:56)
[2019-02-11] MEDS: Multivitamin w/Minerals TAB 1 TAB PO (07:56)
--- NOTE | 2019-02-11 08:09 | PDOC.CMDIS ---
- If Service Date Differs Date of service: 02/11/19 Time of Service: 08:09 LACE Index Scoring Tool - Questions: Length of Stay (in days): 3 Acuity (Admit via E.D.?): No Care Management Discharge Reason for Hospitalization: Right Hip DJD Services Needed at Discharge: DME Agency
== END 2019-02-11 13:39 | disposition home health service (06) | DRG 470 ==
LOC: PDS 05:44 → MS 09:58
PROVIDERS: Admitting Provider Student in an Organized Health Care Education/Training Program; PCP Family Medicine; Visit Provider Student in an Organized Health Care Education/Training Program
PROC: 0SR904A Replacement of Right Hip Joint with Ceramic on Polyethylene Synthetic Substitute, Uncemented, Open Approach (ICD-10-PCS; CPT 27130; principal; 2019-02-09 07:30)
DX: M16.11 Unilateral primary osteoarthritis, right hip (principal); Z96.641 Presence of right artificial hip joint; M25.551 Pain in right hip; G47.33 Obstructive sleep apnea (adult) (pediatric); F17.210 Nicotine dependence, cigarettes, uncomplicated; F41.9 Anxiety disorder, unspecified
CPT/HCPCS: 27130; 97110; 97162; 97530; NC; 72170; 73501; J0690; J1885; J2250; J2370; J2405

== ENCOUNTER 2019-02-24 10:53 | Outpatient (CLI) | payer MEDICARE, MEDICAID, SELFPAY ==
--- NOTE | 2019-02-24 10:19 | DI.RAD_ITS ---
SYMPTOM/DIAGNOSIS: F/U RT LILY RIGHT HIP: 02/24 Two views were obtained and show total hip joint replacement in position. Components appear well seated. No other significant bony abnormality seen.
== END 2019-02-24 11:13 ==
PROVIDERS: PCP Family Medicine; Referring Provider Family Medicine; Visit Provider Student in an Organized Health Care Education/Training Program
DX: M16.11 Unilateral primary osteoarthritis, right hip (principal); Z96.641 Presence of right artificial hip joint; Z47.1 Aftercare following joint replacement surgery
CPT/HCPCS: 73502

== ENCOUNTER → 2019-03-24 09:49 | Outpatient (BNVA) | payer MEDICARE, MEDICAID, SELFPAY | PROVIDERS: PCP Family Medicine; Referring Provider Family Medicine; Visit Provider Student in an Organized Health Care Education/Training Program | DX: M16.11 Unilateral primary osteoarthritis, right hip (principal); Z47.1 Aftercare following joint replacement surgery; Z96.641 Presence of right artificial hip joint ==

== ENCOUNTER 2019-04-25 14:02 | Outpatient (CLI) | payer MEDICARE, MEDICAID, SELFPAY ==
[2019-04-25 15:48] LABS: Ferritin 138 ng/mL (8-388)
== END 2019-04-25 14:22 ==
PROVIDERS: PCP Family Medicine; Visit Provider Nurse Practitioner
DX: M25.50 Pain in unspecified joint (principal)
CPT/HCPCS: 36415; 82728

== ENCOUNTER 2019-07-28 01:50 | Outpatient (CLI) | payer OTHER, MEDICAID, SELFPAY ==
--- NOTE | 2019-07-28 09:15 | DI.CTLCSR_ITS ---
EXAM: CT CHEST LUNG CANCER SCREEN CLINICAL HISTORY: SCREENING FOR LUNG CANCER, CURRENT SMOKER, Z87.891 TECHNIQUE: Low-dose noncontrast COMPARISON: No exams were available for comparison FINDINGS: Heart size is normal. The aorta shows mild calcification. Ascending aorta measures 4 cm in diameter . There is minimal coronary artery calcification. No pleural or pericardial effusions or adenopathy is seen. Trachea and bronchi are unremarkable. There is minimal apical scarring. No suspicious pul monary nodules are identified. Visualized portions of the upper abdominal organs are unremarkable. There are prominent flowing osteophytes in the lower thoracic spine. No compression fractures are se en. IMPRESSION: Lung rads category 1, negative. No suspicious pulmonary nodules are seen. Annual low-dose screening CT is recommended.
== END 2019-07-28 02:10 ==
PROVIDERS: PCP Family Medicine; Visit Provider Family Medicine
DX: Z12.2 Encounter for screening for malignant neoplasm of respiratory organs (principal); F17.200 Nicotine dependence, unspecified, uncomplicated
CPT/HCPCS: G0297

== ENCOUNTER 2019-11-27 00:39 | Outpatient (CLI) | payer OTHER, MEDICAID, SELFPAY ==
--- NOTE | 2019-11-27 07:00 | DI.MAMMO_ITS ---
EXAM: MG MAMMO SCREENING CLINICAL HISTORY: screening,z12.39 TECHNIQUE: Bilateral full field digital CC and MLO mammographic images were obtained with 3D tomosyn thesis and utilizing computer aided detection (CAD). COMPARISON: Available for comparison. FINDINGS: Masses/Architectural Distortion: None seen. Microcalcifications: No suspicious pleomorphic-type are seen. Skin Thickening/Nipple Retraction: None. IMPRESSION: 1. No significant interval change with no specific features of malignancy noted. 2. Unless there is more urgent need, screening mammography is recommended, as per [employer] guidelines. BI-RADS Category 1 - Negative Breast Density - Category B - Scattered areas of fibroglandular density A negative radiographic report should not delay biopsy if a dominant or clinically suspicious mass is present. Up to ten percent of cancers are not identified on mammography. A negative report may reinforce clinical impression. Adenosis and dense breasts may obscure an underlying neoplasm. False positive reports average 6 to 10%. Patient will receive a letter notifying them of these results.
== END 2019-11-27 00:59 ==
PROVIDERS: PCP Family Medicine; Visit Provider Family Medicine
DX: Z12.31 Encounter for screening mammogram for malignant neoplasm of breast (principal)
CPT/HCPCS: 77063; 77067

== ENCOUNTER 2020-02-12 11:11 | Outpatient (CLI) | payer OTHER, MEDICAID, SELFPAY ==
--- NOTE | 2020-02-12 11:00 | DI.RAD_ITS ---
EXAM: XR HIP PELVIS ADULT BL CLINICAL HISTORY: L hip pain, s/p R LILY TECHNIQUE: COMPARISON: CR XR hip RT AP lat only from 02/24/2019 FINDINGS: Four views were obtained. There is a total hip joint replacement in position the right. The compone nts appear well seated. There is mild narrowing of the cartilaginous joint space of the left hip. There are prominent subcho ndral sclerotic changes the acetabulum and to a lesser degree the femoral head. There are prominent marginal osteophytes of the femoral head and acetabulum. IMPRESSION: Moderate degenerative changes left hip. Right total hip replacement in position.
--- NOTE | 2020-02-12 11:00 | DI.RAD_ITS ---
EXAM: XR ANKLE LT COMPLETE CLINICAL HISTORY: eval L ankle pain, h/o surgery TECHNIQUE: COMPARISON: CR LEFT ANKLE COMPLETE from 09/30/2017 FINDINGS: Three views were obtained. Previously noted fractures of the distal fibula and medial malleolus appe ar to have healed. Ankle mortise is well maintained. Minimal degenerative changes noted at the tibi otalar and talofibular joints. No other significant abnormality seen. IMPRESSION:
== END 2020-02-12 11:31 ==
PROVIDERS: PCP Family Medicine; Referring Provider Family Medicine; Visit Provider Student in an Organized Health Care Education/Training Program
DX: M16.12 Unilateral primary osteoarthritis, left hip (principal); Z96.641 Presence of right artificial hip joint; M25.572 Pain in left ankle and joints of left foot; M19.072 Primary osteoarthritis, left ankle and foot; M16.11 Unilateral primary osteoarthritis, right hip; M70.62 Trochanteric bursitis, left hip; M76.31 Iliotibial band syndrome, right leg; M19.172 Post-traumatic osteoarthritis, left ankle and foot
CPT/HCPCS: 73521; 99214; 73610; L1902

== ENCOUNTER → 2020-03-25 13:16 | Outpatient (BNVA) | payer OTHER, MEDICAID, SELFPAY | PROVIDERS: PCP Family Medicine; Visit Provider Student in an Organized Health Care Education/Training Program | DX: M16.11 Unilateral primary osteoarthritis, right hip (principal); Z96.641 Presence of right artificial hip joint; M25.572 Pain in left ankle and joints of left foot; M70.62 Trochanteric bursitis, left hip | CPT/HCPCS: 20610; 99213; J1040 ==

== ENCOUNTER 2020-12-02 01:24 | Outpatient (CLI) | payer OTHER, MEDICAID, SELFPAY ==
--- NOTE | 2020-12-02 12:55 | DI.MAMMO_ITS ---
Exam(s) MAMMO SCREENING EXAM: MAMMO SCREENING CLINICAL HISTORY: screening,Z12.39. TECHNIQUE: Bilateral full field digital CC and MLO mammographic images were obtained with 3D tomosyn thesis and utilizing computer aided detection (CAD). COMPARISON: Prior mammograms dating back to 2011, the most recent being November 2011. FINDINGS: There are no CAD designations There are no new spiculated masses nor malignant appearing microcalcification groups. There is no significant architectural distortion nor skin thickening-retraction. IMPRESSION: No radiographic evidence of malignancy. BI-RADS Category 1 - Negative Breast Density - Category B - Scattered areas of fibroglandular density Breast density Category C or D implies that the patient has dense breast tissue. Dense breast tissue can make it harder to find cancer on a mammogram. Dense breast tissue is also associated with an incr eased risk of breast cancer. This information about the result of the mammogram report was provided to the patient to raise their awareness. Use this report when you speak with the patient about their risks for breast cancer, which includes their family history. At that time, you may recommend additional screening tests (Ultrasoun d or MRI) as these tests may add significant information. A negative radiographic report should not delay biopsy if a dominant or clinically suspicious mass is present. Up to ten percent of cancers are not identified on mammography. A negative report may reinforce clinical impression. Adenosis and dense breasts may obscure an underlying neoplasm. False positive reports average 6 to 10%. Patient will receive a letter notifying them of these results.
== END 2020-12-02 01:44 ==
PROVIDERS: PCP Family Medicine; Visit Provider Family Medicine
DX: Z12.31 Encounter for screening mammogram for malignant neoplasm of breast (principal)
CPT/HCPCS: 77063; 77067

== ENCOUNTER 2021-02-13 02:31 | Outpatient (CLI) | payer OTHER, MEDICAID, SELFPAY ==
--- NOTE | 2021-02-13 07:45 | DI.RAD_ITS ---
Exam(s) XR SHOULDER LT COMPLETE 2+V EXAM: XR SHOULDER LT COMPLETE 2+V CLINICAL HISTORY: left shoulder pain,M25.512. TECHNIQUE: 2D digital imaging was performed. COMPARISON: CR RIGHT SHOULDER COMPLETE from 12/28/2013 FINDINGS: No evidence of fracture or dislocation nor abnormal soft tissue calcifications. However, the subacro mial space is significantly diminished and this indicates most probably the presence of a chronic ful l-thickness rotator cuff tear. There are mild-moderate degenerative changes in the glenohumeral joint. Moderate degenerative change s in the AC joint also evident. No significant osseous lesions. IMPRESSION: As above. Suspect full-thickness rotator cuff pathology. DATA REPOSITORY: RADIATION DOSE DELIVERED:
== END 2021-02-13 02:51 ==
PROVIDERS: PCP Family Medicine; Visit Provider Family Medicine
DX: M25.512 Pain in left shoulder (principal)
CPT/HCPCS: 73030

== ENCOUNTER 2021-06-04 17:27 | Outpatient (REF) | payer MEDICARE, MEDICAID, SELFPAY ==
--- OUTSIDE RECORDS SUMMARY | 2021-06-04 17:31 | XMS_ITS ---
:1950 Author Care Team Providers Name Role Phone [facility] Primary Care Provider [phone] WINTER RAMOS Primary Care Provider [phone] Allergies Code Code System Name Reaction Severity Status Onset 5640 RxNorm Ibuprofen ? ? Active ? Sulfa ? ? Active ? (Sulfonamide Antibiotics) Medications Name Status Start Date Stop Date ? ? Caltrate 600 plus D Active ? Not availabl e celecoxib 200 mg capsule Completed ? 021 Centrum Silver Active ? Not available clonazepam 0.5 mg tablet Active ? Not ryley ilable TAKE 1 TABLET BY MOUTH EVERY NIGHT AT BEDTIME NEEDED clonidine HCl 0.1 mg tablet Completed ? 04/11 Combivent Respimat 20 mcg-100 Active ? No t available mcg/actuation solution for inhalation diazepam 2 mg tablet Completed ? 08/08/2020 escitalopram 10 mg tablet Completed ? 2018 escitalopram oxalate Completed ? 04/25/2019 10mg daily gabapentin 300 mg capsule Active ? Not av ailable hydroxyzine HCl 10 mg tablet Completed ? lorazepam 0.5 mg tablet Completed ? 08/08/19 20 Mirapex 0.125 mg tablet Completed 09/28/2016 09/29/19 17 1 (one) Tablet: 2 hours before bed mirtazapine 7.5 mg tablet Completed ? 2019 Neupro 1 mg/24 hour transdermal 24 hour patch Completed ? 08/08/2019 Apply one patch daily for one week Neupro 2 mg/24 hour transdermal 24 hour patch Completed ? 08/08/2020 APPLY 1 PATCH TRANSDERMALLY DAILY Neupro 3 mg/24 hour transdermal Active ? Not available 24 hour patch nicotine 14 mg/24 hr daily Completed ? 08/08 transdermal patch nicotine 21 mg/24 hr daily transdermal patch Completed ? 08/08/2019 Apply 1 patch every day by transdermal route. nicotine 7 mg/24 hr daily Completed ? 2019 transdermal patch nortriptyline 25 mg capsule Completed ? 07/13 pantoprazole 40 mg Completed ? 08/08/2019 tablet,delayed release ropinirole 3 mg tablet Completed 08/10/2016 7 1 (one) Tablet: 2-3 hours before bedtime Shingrix (PF) 50 mcg/0.5 mL Completed ? 07/13 intramuscular suspension, kit tramadol 50 mg tablet Completed ? 04/25/2019 Problems Name Status Onset Date Source ? Depressive Disorder Active 04/19/2019 ? Fatigue Active 04/19/2019 ? Nicotine Dependence Active ? History Insomnia Active ? History Obstructive Sleep Apnea Syndrome Active ? History Periodic Limb Movement Disorder Active ? History Restless Legs Active ? History Joint Pain Active ? History Lack of Energy Active ? History Self-injurious Behavior Active ? History Procedures Date Name Performed by ? ? Tonsillectomy Information not avai lable 04/25/2019 Polysomnogram Information not avai lable Results Lab Results None recorded. Past Encounters 03/12/2021 Restless Legs; Psychophysiologic Insomni a; Obstructive Sleep Apnea Syndrome Denice Majano TYPESETTER PERFORATOR OPERATOR: [address] [place] [phone], Ph. 08/08/2020 Restless Legs; Obstructive Sleep Apnea S yndrome Denice Majano TYPESETTER PERFORATOR OPERATOR: [address] [place] [phone], Ph. Social History Tobacco Smoking Status Former Smoker (1 pack per day) Note s: quit 2018 Vaccine List None recorded. Plan of Care Reminders Provider Appointments None ? ? recorded. Lab None ? ? recorded. Referral None ? ? recorded. Procedures None ? ? recorded. Surgeries None ? ? recorded. Imaging None ? ? recorded. Vitals 03/12/2021 02:00PM Office 15 Height Weight BMI Blood Pressure 175.26 cm 81.65 kg 26.6 kg/m2 118/80 mm[Hg] 08/08/2020 11:00AM Office 15 Height Weight BMI Blood Pressure 175.26 cm 81.65 kg 26.6 kg/m2 130/74 mm[Hg] 08/08/2019 10:30AM Office 30 Height Weight BMI Blood Pressure 175.26 cm 92.53 kg 30.1 kg/m2 122/76 mm[Hg] 06/27/2019 08:30AM Office 30 Height Weight BMI Blood Pressure 175.26 cm 93.08 kg 30.3 kg/m2 122/78 mm[Hg] 05/23/2019 02:00PM Office 30 Height Weight BMI Blood Pressure 175.26 cm 90.72 kg 29.5 kg/m2 128/70 mm[Hg] 04/25/2019 01:30PM Office 30 Height Weight BMI Blood Pressure 175.26 cm 92.17 kg 30 kg/m2 128/82 mm[Hg] 09/28/2016 Weight 82.35 kg 09/28/2016 Blood Pressure 120/78 mm[Hg] 08/10/2016 Weight 82.58 kg 08/10/2016 Blood Pressure 122/80 mm[Hg] 08/10/2016 Height 174.63 cm 03/30/2016 Blood Pressure 116/72 mm[Hg] 03/30/2016 Height Weight 174.63 cm 82.55 kg 02/17/2016 Blood Pressure 126/78 mm[Hg] 02/17/2016 Height Weight 174.63 cm 83.91 kg 02/03/2016 Height Weight 174.63 cm 84.06 kg 02/03/2016 Blood Pressure 120/76 mm[Hg] 01/09/2016 Height Weight 174.63 cm 82.55 kg 01/09/2016 Blood Pressure 118/78 mm[Hg]
--- OUTSIDE RECORDS SUMMARY | 2021-06-04 17:31 | XMS_ITS | Encounter Summary ---
:1950 Author Care Team Providers Name Role Phone [facility] Medical Records Primary Care Provider [phone] Radhika Amaro Primary Care Provider [phone] Reason for Visit None recorded. Assessment and Plan 1. Restless legs Very severe RLS previously aff ecting her sleep every night. She did not tolerate Requip or Mirapex (severe diarrhea). Ferritin 04/25/19 was normal at 138. Her PSG showed a PLMi of 124.3/hr and PLM arousal index 1.9/hr. She had a tit ration and couldn't get any sleep because of her legs and needing to move and walk constantly. She is now using Neupro 3 mg and gabapentin 300 mg up to four per e vening/night. Since she has had a tremen dous amount of stress recently and with this her RLS and sleep have significantly worsened. She is already on max dose of Neupro and taking 1200mg of gabapentin m ost nights. Given her stress, insomnia a nd RLS I am adding clonazepam 0.5 mg QHS PRN. She has bene on lorazepam in the past and tolerated this well and was able to come off it easily. Hopefully she will only need this short term and when thin gs settle down hin her life I will try to have her stop it. She is aware it is a controlled drug and she needs to keep it stored where her can't get to it , she is also made aware it can be habit forming. He is in agreement with the plan. I provided greater than 30 minutes in e care of this patient, more than half the time was spent in counseling. ? clonazepam 0.5 mg tablet 2. Psychophysiologic insomnia She is under a tremendous amou nt of stress caring for her who has dementia. Since her stress level has inc reased she has had difficulty 3. Obstructive sleep apnea syndr ome STEPHANIE diagnosed in 2016 with an AHI of 1.8/hr and RDI of 28.7/hr. She briefly tried CPAP in the past and found it made her sleep more disruptive and she felt very claustrophobic so she stopped u sing it. She only ever tried a full face mask. Repeat PSG 05/13/19 with AHI 22.3/hr and sp02 ana 82%. She attempted CPAP 5-15 cm again with nasal pillows and had very poor tolerance and was not able to get any sleep with this on. She is now sleeping well as her RLS/PLMS are well controlled. She has no interest in trying to use CPAP ever again and I think this is reasonable given her AHI was only 1.8/ hr and she is feeling well rested during the day. I did let her know that weight gain and aging may worsen STEPHANIE so weight loss is encouraged. I provided greater than 20 minutes in e care of this patient, more than half the time was spent in [id number] counseling. Discussion Note: None recorded.Patient educational handouts: No information available. Plan of Care Reminders Provider Appointments Office 15 06/26/2021 Santosh Majano, 10:30AM ACCOUNTS PAYABLE OR RECEIVABLE CLERK Lab None ? ? recorded. Referral None ? ? recorded. Procedures None ? ? recorded. Surgeries None ? ? recorded. Imaging None ? ? recorded. Medications Name Start Date ? ? Caltrate 600 plus D ? Centrum Silver ? clonazepam 0.5 mg tablet ? TAKE 1 TABLET BY MOUTH EVERY NIGHT AT BEDTIME NEED ED Combivent Respimat 20 mcg-100 mcg/actuation solution f or inhalation ? gabapentin 300 mg capsule ? TK 2 TO 3 CS PO HS Neupro 3 mg/24 hour transdermal 24 hour patch ? APPLY 1 PATCH TOPICALLY TO SKIN, REMOV E AFTER 24 HOURS, THEN REPLACE AND ROTATE APPLICATION SITE Medications Administered None recorded. Vitals Height Weight BMI Blood Pressure 5 ft 9 in 180 lbs 26.6 kg/m2 118/80 mm[Hg] Results Lab Results None recorded. Allergies Code Code System Name Reaction Severity Onset 2440 RxNorm Ibuprofen ? ? ? Sulfa ? ? ? (Sulfonamide Antibiotics) Problems Name Status Onset Date Source ? [...] ? ? Tonsillectomy Information not avai lable Vaccine List None recorded. Social History Tobacco Smoking Status Former Smoker (1 pack per Notes: q uit 2018) Animal exposure? N What is your level of alcohol Occasional Notes: .5 to 1 cup of consumption? wine a day Live alone or with others? with others Are you currently employed? N Are you blind or do you have Y Notes: c orrective difficulty seeing? glasses Language Difficulties No Hard of hearing or deaf in one N or both ears? Are you passively exposed to N smoke? What is your level of caffeine None consumption? What is your occupation? retired Functional Status Are you blind or do you Yes have difficulty seeing?? Past Encounters 03/12/2021 Restless Legs; Psychophysiologic Insomni a; Obstructive Sleep Apnea Syndrome Denice Majano ACCOUNTS PAYABLE OR RECEIVABLE CLERK: [address] [place] [phone], Ph. History of Present Illness Note: <p>Colleen Momin comes in for STEPHANIE follow-up.</p><p>
</p><p>Colleen was seen by me on 08/08/20. PSG 01/10/16 (BMI 27.07), AHI 1.8/hr, RDI 28.7/hr, 02 ana 88%, PLMi 42.1/hr, PLMai 2.7/hr. She has a history of depression, anxiety, intention tremor, osteoporosis, hip pain, OA, STEPHANIE, RLS and insomnia. She attempted CPAP in the past and did not tolerate it as it made her feel like she was suffocating and worsened sleep quality. She complained of RLS that was improved on gabapentin 600 mg but she would often need to repeat the dose up to twice more. These improved after she was started on lorazepam 0.5 mg for sleep. Ferritin 04/25/19 138. PSG 05/13/19 (BMI 30). Sleep efficiency was 53%, AHI 22.3/hr, RDI 23.8/hr, REM AHI 1.8/hr, REM RDI 1.8/hr, supine AHI 48/hr, right lateral AHI 6/hr, left lateral AHI 4/hr, sp02 ana 82%, 109 minutes were spent at a saturation <88%, arousal index 7/hr, PLMi 124.3/hr, PLM arousal index 1.9/hr. EKG NSR. She took gabapentin 1200 mg and lorazepam 0.5 mg for study. She again attempted CPAP and she was not able to get any sleep with it. She just couldn’t stand anything touching her face. She attempted a titration on 06/26/19. The tech reported to me that Colleen really didn’t get any meaningful sleep. She was movingaround all night long and had to get up several times a night to walk because of her restless legs. The CPAP was never titrated beyond 5 cm and Colleen put it on top of her head multiple throughout the night. Last visit she was using Neupro 3 mg patch and gabapentin 300 mg which was working well.</p><p>She called 03/06/21 to say she hadn't slept in 72 hours and felt patch not working, she was also taking gabapentin QID. She reported a lot of stress related to placing with dementia in LTC. </p><p>
</p><p>
</p><p>Radha ng is tearful during the interview today as she describes caring for her with cancer and dementia. Her sonsare encouraging her to put him in LTC but she is very concerned about him feeling abandoned. She also has many financial concerns. She has been having a lot of problems sleeping. 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 She has not had a visitwith her PCP since she has been going through all of this. She says her RLS seem to have worsened with the increased stress. They don't always bother her but it is most nights, she likes to go to bed early to relax. She gets to sleep around 11 pm-12 am. She is using her Neupro patch. She is taking gabapentin 300 mg up to fours time in the evening/night. She wakes up and her legs bother her and she gets up to walk or take another gabapentin. She is not napping during the day. </p><p>
</p><p>ESS today 10/02</p>Review of Systems: ROS as noted in the HPI Review of Systems None recorded. Physical Exam ? Notes: General: A&O, well groomed { {over weight obese morbidly obese normal weight * thin}}.

HE AD: normocephalic & atraumatic.

EYES: non icteric.

LUNGS: CT A all awad. Good air movement.

CARDIO: RRR without murmur, gallop o r thrill.

NEURO: A&O. Normal gait.

PSYCH: Normal m ood and affect.

CUTANEOUS: no overt lesions or rashes
== END 2021-06-04 17:28 | disposition home or self-care (01) ==
LOC: LBN 17:27
PROVIDERS: PCP Family Medicine; Visit Provider Family Medicine
DX: N39.0 Urinary tract infection, site not specified (principal)
CPT/HCPCS: 87077; 87086; 87186

== ENCOUNTER 2021-06-04 19:14 | Outpatient (REF) | payer MEDICARE, MEDICAID, SELFPAY ==
[2021-06-07 11:05] LABS: COVID-19 RT-PCR UVMMC Result Negative (Negative)
== END 2021-06-04 19:15 | disposition home or self-care (01) ==
LOC: LBN 19:14
PROVIDERS: PCP Family Medicine; Visit Provider Family Medicine
DX: Z20.822 Contact with and (suspected) exposure to COVID-19 (principal)
CPT/HCPCS: U0003

== ENCOUNTER → 2021-06-16 13:08 | Outpatient (BNVA) | payer MEDICARE, MEDICAID, SELFPAY | PROVIDERS: PCP Family Medicine; Referring Provider Family Medicine; Visit Provider Student in an Organized Health Care Education/Training Program | DX: M70.62 Trochanteric bursitis, left hip (principal); M16.12 Unilateral primary osteoarthritis, left hip | CPT/HCPCS: 20610; J1040 ==

== ENCOUNTER → 2021-09-15 10:09 | Outpatient (BNVA) | payer MEDICARE, MEDICAID, SELFPAY | PROVIDERS: PCP Family Medicine; Referring Provider Family Medicine; Visit Provider Student in an Organized Health Care Education/Training Program | DX: M70.62 Trochanteric bursitis, left hip (principal) | CPT/HCPCS: 99213 ==

== ENCOUNTER 2021-10-28 02:14 | Outpatient (CLI) | payer OTHER, MEDICAID, SELFPAY ==
[2021-10-28 12:26] LABS: HCT 42.7 % (36.0-46.0); HGB 13.8 g/dL (11.2-15.7); MCH 31.5 pg (27.0-33.0); MCHC 32.3 % (32.0-36.0); MCV 98 fL (80-95); Platelet Count 211 10^3/uL (130-400); RBC 4.38 10^6/uL (3.93-5.22); RDW 12.7 % (11.7-14.6); RDW-SD 46.4 fL; WBC 7.35 10^3/uL (4.4-10.8)
[2021-10-28 13:56] LABS: ALT 21 U/L (14-59); AST 16 U/L (15-37); Alkaline Phosphatase 88 U/L (46-116); Anion Gap 8.4 mmol/L (3-11); BUN 23 mg/dL (7-18); Bilirubin, Total 0.6 mg/dL (0.2-1.0); CO2 29.6 mmol/L (21.0-32.0); CREATININE 0.9 mg/dL (0.55-1.02); Calcium 8.9 mg/dL (8.5-10.1); Calculated LDL 92 mg/dL (<100); Chloride 102 mmol/L (98-107); Cholesterol 171 mg/dL (<200); Ferritin 131 ng/mL (8-252); Glucose 88 mg/dL (74-106); HDL Cholesterol 72 mg/dL (40-60); Potassium 4.3 mmol/L (3.5-5.1); Sodium 140 mmol/L (136-145); TSH (W/Ref FT4) 1.67 uIU/mL (0.36-3.74); Total Protein 6.9 g/dL (6.4-8.2); Triglyceride 38 mg/dL (<150); Vitamin B12 1035 pg/mL (193-986)
[2021-10-28 14:08] LABS: Iron 83 ug/dL (50-170); Total Iron Binding Capacity 284 ug/dL (250-450); Transferrin Sat 29 % (15-50)
== END 2021-10-28 02:15 | disposition home or self-care (01) ==
LOC: LBO 02:14
PROVIDERS: PCP Family Medicine; Visit Provider Family Medicine
DX: F41.9 Anxiety disorder, unspecified (principal); G25.81 Restless legs syndrome; G47.00 Insomnia, unspecified; M25.512 Pain in left shoulder; R53.83 Other fatigue; I10 Essential (primary) hypertension; Z13.6 Encounter for screening for cardiovascular disorders; R19.8 Other specified symptoms and signs involving the digestive system and abdomen
CPT/HCPCS: 36415; 80053; 80061; 85027; 82607; 82728; 83540; 83550; 84443

== ENCOUNTER → 2021-11-27 03:04 | Outpatient (CLI) | payer OTHER, MEDICAID, SELFPAY ==
--- NOTE | 2021-11-27 08:20 | DI.CTLCSR_ITS ---
Exam(s) CT CHEST LUNG CANCER SCREEN EXAM: CT CHEST LUNG CANCER SCREEN CLINICAL HISTORY: Screening for lung cancer,current smoker, f17.210 TECHNIQUE: Imaging Protocol: Axial computed tomography images with coronal and sagittal reformatted images were created and reviewed COMPARISON: CT CT CHEST LUNG CANCER SCREEN from 07/28/2019 FINDINGS: Tracheobronchial tree: Patent where visualized. Pulmonary parenchyma: No consolidation or dominant measurable mass. Mild centrilobular emphysematous changes. Lung Nodules: None. Mediastinum and Rosi: No dominant adenopathy or fluid collection. The esophagus is unremarkable. Thyroid gland: Unremarkable. Lymph nodes: Unremarkable. Pleura: No effusion or pneumothorax. Heart: The heart is not dilated. No coronary artery calcifications are seen. No pericardial effusion . Aorta: Atherosclerosis. The ascending aorta measures 4.2 cm. Upper abdomen: Unremarkable. Soft Tissues: Unremarkable. Bones: Within normal limits. There is a mild right convex curvature of the thoracic spine. IMPRESSION: No pulmonary nodules. Lung RADS Cat 1 - Negative: No nodules and definitely benign nodules Lung-RADS 1.0 CATEGORIES: Category 0 - Prior chest CT exam(s) being located for comparison. Category 1 - Annual screening in 12 months. No nodules or definitely benign nodules. Category 2 - Annual screening in 12 months. Benign appearance. Nodules with low likelihood of becomin g active cancer. Category 3 - 6-month follow-up. Probably benign. Short-term follow-up suggested. Nodules with low lik elihood of becoming active cancer. Category 4A - 3-month follow-up and CT/PET if >8 mm in size. Suspicious finding. Findings which requi re additional testing. Category 4B - Findings which require additional testing and tissue sampling. Suspicious finding. Category 4X - Category 3 or 4 nodules with additional features or imaging findings that increases the suspicion of malignancy. Modifier S- Potentially clinically significant finding. (Non lung cancer) RADIATION DOSE DELIVERED: 74.59mGy.cm Total DLP !Error CTDIvol 74.59mGy.cm Total DLP 1.84mGy CTDIvol DATA REPOSITORY: All CT scans at this facility are submitted to the National Radiology Data Registry (NRDR) Dose Index Registry (DIR) with the [employer] ([employer]). RADIATION OPTIMIZATION: All CT scans at this facility use at least one of these dose optimization te chniques: automated exposure control; mA and/or kV adjustment per patient size (includes targeted exa ms where dose is matched to clinical indication); or iterative reconstruction.
== END ==
PROVIDERS: PCP Family Medicine; Visit Provider Family Medicine
DX: Z12.2 Encounter for screening for malignant neoplasm of respiratory organs (principal); F17.210 Nicotine dependence, cigarettes, uncomplicated; J43.2 Centrilobular emphysema
CPT/HCPCS: 71271

== ENCOUNTER → 2022-01-05 13:28 | Outpatient (BNVA) | payer OTHER, MEDICAID, SELFPAY | PROVIDERS: PCP Family Medicine; Referring Provider Family Medicine; Visit Provider Psychiatry & Neurology Neurology | DX: G47.00 Insomnia, unspecified (principal); G25.81 Restless legs syndrome; G25.0 Essential tremor; F43.21 Adjustment disorder with depressed mood | CPT/HCPCS: 99215 ==

== ENCOUNTER → 2022-04-09 03:44 | Outpatient (CLI) | payer OTHER, MEDICAID, SELFPAY ==
--- NOTE | 2022-04-09 07:45 | DI.RAD_ITS ---
Exam(s) XR HIP LT COMPLETE AP PELVIS EXAM: XR HIP LT COMPLETE AP PELVIS CLINICAL HISTORY: left hip pain,m25.552. TECHNIQUE: 2D digital imaging was performed of the left hip. Two views were obtained. AP pelvis an d lateral left hip views were obtained. COMPARISON: CR XR HIP PELVIS ADULT BL from 02/12/2020 FINDINGS: BONES: No acute fracture is present. No bony destructive lesion is seen. JOINTS: No dislocation present. There are moderate degenerative changes in the left hip with subchond ral sclerosis and marginal spurring. Note is again made of a right total hip arthroplasty. It is in completely imaged on this examination. SOFT TISSUE: Normal. IMPRESSION: Moderate DJD of the left hip. DATA REPOSITORY: RADIATION DOSE DELIVERED:
== END ==
PROVIDERS: PCP Family Medicine; Visit Provider Family Medicine
DX: M16.12 Unilateral primary osteoarthritis, left hip (principal)
CPT/HCPCS: 73502

== ENCOUNTER → 2022-06-25 08:12 | Outpatient (BNVA) | payer OTHER, MEDICAID, SELFPAY | PROVIDERS: PCP Family Medicine; Referring Provider Family Medicine; Visit Provider Student in an Organized Health Care Education/Training Program | DX: M70.62 Trochanteric bursitis, left hip (principal); M16.12 Unilateral primary osteoarthritis, left hip | CPT/HCPCS: 99213 ==

== ENCOUNTER 2022-07-08 02:31 | Outpatient (CLI) | payer OTHER, MEDICAID, SELFPAY ==
[2022-07-08 12:04] LABS: HCT 41.4 % (36.0-46.0); HGB 13.6 g/dL (11.2-15.7); MCH 31.7 pg (27.0-33.0); MCHC 32.9 % (32.0-36.0); MCV 97 fL (80-95); MPV 11.1 fL (8.0-11.0); Platelet Count 207 10^3/uL (130-400); RBC 4.29 10^6/uL (3.93-5.22); RDW-SD 46.6 fL; WBC 7.17 10^3/uL (4.4-10.8)
[2022-07-08 12:24] LABS: Anion Gap 3.7 mmol/L (3-11); BUN 26 mg/dL (7-18); CO2 32.3 mmol/L (21.0-32.0); CREATININE 0.9 mg/dL (0.55-1.02); Calcium 9.3 mg/dL (8.5-10.1); Chloride 104 mmol/L (98-107); Glucose 98 mg/dL (74-106); Potassium 4.1 mmol/L (3.5-5.1); Sodium 140 mmol/L (136-145)
== END 2022-07-08 02:32 | disposition home or self-care (01) ==
LOC: LBO 02:32
PROVIDERS: PCP Family Medicine; Visit Provider Student in an Organized Health Care Education/Training Program
DX: M16.12 Unilateral primary osteoarthritis, left hip (principal); Z01.818 Encounter for other preprocedural examination; Z01.812 Encounter for preprocedural laboratory examination
CPT/HCPCS: 36415; 80048; 85027

== ENCOUNTER 2022-07-17 09:58 | Emergency (ER) | payer OTHER, MEDICAID, SELFPAY ==
[2022-07-17] VITALS (22 sets, daily range): BP systolic 121–122; BP diastolic 76–81; PULSE 60–87; RESP 12–22; TEMP 36.3–36.6; O2SAT 94–100
--- NOTE | 2022-07-17 10:00 | RT.EKG_ITS ---
APPROVED REPORT Exam: Resting ECG Reason for Exam: Dyspnea Patient Location: E HR:65 bpm ECG Measurements Heart Rate 65 AXIS VT 154 P 76 QRSd 94 QRS 27 QT 405 T 39 QTc 422 Conclusion Sinus rhythm...normal P axis, V-rate 60- 99 Probable left atrial enlargement...P >50mS, <-0.10mV V1
--- NOTE | 2022-07-17 10:23 | ED.GENADUL_ITS ---
Discharge Plan Disposition Patient Disposition: Home Condition: Stable Discharge Details Clinical Impression: Cough Primary Care Provider: Radhika Amaro ED Provider: Andrews Weinstein Home Meds and New Rx's Prescriptions: New prednisone 20 mg tablet 40 mg PO DAILY 5 Days Qty: 10 0RF Continued Neupro 3 mg/24 hour patch 24 hour 3 mg transdermal DAILY Qty: 1 0RF trazodone 50 mg tablet 50 mg PO QHS Qty: 90 4RF tramadol 50 mg tablet 50 mg PO QHS CALTRATE-600 WITH VIT D TAB 1 EACH tablet 3 ea PO DAILY CENTRUM SILVER TABLET 1 EACH tablet 1 ea PO DAILY ropinirole 0.25 mg tablet See Rx Instructions PO QHS Qty: 360 3RF Rx Instructions: 1-2 tabs PO every day at bedtime; Combivent Respimat 20-100 mcg/actuation mist 1 puff inhalation TID PRN (Reason: wheezing) Qty: 4 3RF Rx Instructions: space evenly during waking hours acetaminophen 500 mg tablet 1,000 mg PO Q8H PRN (Reason: pain) Qty: 90 3RF Discharge Instructions Instructions: Acute Cough (ED) Additional Instructions: Work-up in the ER does not reveal any obvious emergent process. Please take all of your medications as directed, especially your inhaler which you have not been using. I am providing you a prescription of steroids for the next 5 days, take those as directed as well. Please watch for new or worsening symptoms and return to the ER for any concerns. Lastly, I would like you to contact your primary care provider later today or first thing Wednesday to make them aware of your ER visit and need for outpatient reevaluation. Medical Decision Making 71-year-old female with a past medical history of COPD, current smoker, presents to the ER today for worsening cough, nasal congestion, shortness of breath over the past week. Clinically she appears well, nontoxic, normotensive, pulse in the 70s, normal respiratory rate, afebrile, O2 sat 94% on room air. She does have diminished breath sounds with diffuse wheezing. Plan to obtain IV access and initiate a work-up including a single troponin and EKG. given the way her symptoms came on suddenly and resolve suddenly, will obtain D-dimer for potential PE rule out. Examination not consistent with CHF, will not pursue BNP. We will provide duo nebs as well as an albuterol neb. Patient states that she has an inhaler at home but does not use her daily inhaler and she has not been using her rescue inhaler. Upon reevaluation patient reports subjective improvement of her breathing, she is moving more air, less wheezing throughout. Laboratory values do not reveal any evidence of leukocytosis or anemia. D-dimer is 1826. Her chest x-ray was unremarkable but will pursue a CTA of the chest. Electrolytes unremarkable, creatinine 1.0 with a GFR of 59.49. Magnesium 2.5 LFTs unremarkable troponin less than 50. COVID, flu, RSV negative. CTA negative. Patient reports that she feels well, denies any shortness of breath. Clinically she appears well, normotensive, pulse in the 70s, afebrile, O2 sat in the mid 90s on room air. I see no clear indication to initiate antibiotic therapy. We discussed the importance of taking her inhalers as directed and I will provide a burst dose of steroids for the next 5 days. Denies any chest pain whatsoever. Patient with URI-like symptoms for 1 week, worsening, likely viral syndrome with COPD exacerbation. Patient feels well and is comfortable being discharged in her current condition. Strict discharge and return precautions were provided. Patient understands, is agreeable to this plan, and has no additional questions or concerns upon discharge. This documentation was generated using [employer] (acquired by [employer] in 2014)ation system, please disregard any oddities of phrase or misspellings. Medical Records Medical records reviewed: Yes I reviewed the patient's medical records. Imaging Data Radiologic Study: Attestation: I personally reviewed and interpreted this imaging study as follows: Imaging: X-Ray Radiologist's impression: Exam(s) XR PORTABLE CHEST AP EXAM: XR PORTABLE CHEST AP CLINICAL HISTORY: sob TECHNIQUE: 2D digital imaging was performed. COMPARISON: No exams were available for comparison FINDINGS: Leads overlie the chest. Right costophrenic angle not included on view. LUNGS: Clear. No pleural abnormality seen. HEART: Normal size. AORTA: Normal diameter. BONES: Degenerative changes. Soft tissues: Unremarkable. IMPRESSION: No acute findings. Radiologic Study #2: Attestation: I personally reviewed and interpreted this imaging study as follows: Imaging: CT Scan Radiologist's impression: Exam(s) CT CHEST PE CTA EXAM: CT CHEST PE CTA CLINICAL HISTORY: sob, elevated dimer. TECHNIQUE: Imaging Protocol: Axial CT angiography was performed with multi- slice acquisition and multi-planar reconstructions as well as axial, coronal and sagittal MIP reconstructions. CONTRAST MATERIAL: Intravenous: Omnipaque 350 Contrast volume:100 ml COMPARISON: CT CT CHEST LUNG CANCER SCREEN from 11/27/2021 FINDINGS: Pulmonary Arteries: No evidence of filling defect to suggest pulmonary emboli. Tracheobronchial tree: Patent where visualized. Mediastinum and Rosi: No dominant adenopathy or fluid collection. Pulmonary parenchyma: No consolidation or dominant measurable mass. Pleura: No effusion or pneumothorax. Heart: The heart is mildly dilated. No coronary artery calcifications are seen. Aorta: ascending aorta measures 4.2 cm. No dissection. Mild atherosclerotic changes. Upper abdomen: Unremarkable. Bones: Degenerative changes with prominent flowing osteophytes lower thoracic spine. IMPRESSION: No evidence of pulmonary embolism or other acute abnormality.. Lab Data Lab results reviewed: Yes I reviewed the patient's lab results. Labs: Laboratory Tests Range/Units 07/17/22 07/17/22 07/17/22 10:50 10:50 10:50 WBC (4.4-10.8) 10^3/uL 6.49 RBC (3.93-5.22) 10^6/uL 4.42 Hgb (11.2-15.7) g/dL 13.9 Hct (36.0-46.0) % 42.1 MCV (80-95) fL 95 MCH (27.0-33.0) pg 31.4 MCHC (32.0-36.0) % 33.0 RDW (11.7-14.6) % 12.5 Plt Count (130-400) 10^3/uL 149 MPV (8.0-11.0) fL 11.8 H Immature Gran % 0.5 Neutrophils % 71.3 Lymphocytes % 21.9 Monocytes % 4.3 Eosinophils % 1.7 Basophils % 0.3 Nucleated RBC % (0.0-0.3) % 0.0 Absolute Neutrophils (1.2-6.7) 10^3/uL 4.63 Absolute Lymphocytes (1.2-3.4) 10^3/uL 1.42 Absolute Monocytes (0.1-0.8) 10^3/uL 0.28 Absolute Eosinophils (0.0-0.7) 10^3/uL 0.11 Absolute Basophils (0.0-0.2) 10^3/uL 0.02 PT (9.3-11.0) sec 10.3 INR (0.9-1.1) 1.0 APTT (21.0-27.5) sec 22.3 D-Dimer (<500) ng/mlFEU 1826 H Sodium (136-145) mmol/L 139 Potassium (3.5-5.1) mmol/L 4.3 Chloride (98-107) mmol/L 104 Carbon Dioxide (21.0-32.0) mmol/L 28.3 Anion Gap (3-11) mmol/L 6.7 BUN (7-18) mg/dL 21 H Creatinine (0.55-1.02) mg/dL 1.0 Est GFR (CKD-EPI 2020) (mL/min/1.73m2) 59.49 Glucose (74-106) mg/dL 98 Calcium (8.5-10.1) mg/dL 9.1 Magnesium (1.8-2.4) mg/dL 2.5 H Total Bilirubin (0.2-1.0) mg/dL 0.4 AST (15-37) U/L 20 ALT (14-59) U/L 20 Alkaline Phosphatase (46-116) U/L 91 Troponin I (<or=60) ng/L < 50 Total Protein (6.4-8.2) g/dL 7.4 Albumin (3.4-5.0) g/dL 3.8 COVID-19 Source SARS-CoV-2 (PCR) (Negative) Influenza Type A (PCR) (Negative) Influenza Type B (PCR) (Negative) RSV (PCR) (Negative) Range/Units 07/17/22 11:00 WBC (4.4-10.8) 10^3/uL RBC (3.93-5.22) 10^6/uL Hgb (11.2-15.7) g/dL Hct (36.0-46.0) % MCV (80-95) fL MCH (27.0-33.0) pg MCHC (32.0-36.0) % RDW (11.7-14.6) % Plt Count (130-400) 10^3/uL MPV (8.0-11.0) fL Immature Gran % Neutrophils % Lymphocytes % Monocytes % Eosinophils % Basophils % Nucleated RBC % (0.0-0.3) % Absolute Neutrophils (1.2-6.7) 10^3/uL Absolute Lymphocytes (1.2-3.4) 10^3/uL Absolute Monocytes (0.1-0.8) 10^3/uL Absolute Eosinophils (0.0-0.7) 10^3/uL Absolute Basophils (0.0-0.2) 10^3/uL PT (9.3-11.0) sec INR (0.9-1.1) APTT (21.0-27.5) sec D-Dimer (<500) ng/mlFEU Sodium (136-145) mmol/L Potassium (3.5-5.1) mmol/L Chloride (98-107) mmol/L Carbon Dioxide (21.0-32.0) mmol/L Anion Gap (3-11) mmol/L BUN (7-18) mg/dL Creatinine (0.55-1.02) mg/dL Est GFR (CKD-EPI 2020) (mL/min/1.73m2) Glucose (74-106) mg/dL Calcium (8.5-10.1) mg/dL Magnesium (1.8-2.4) mg/dL Total Bilirubin (0.2-1.0) mg/dL AST (15-37) U/L ALT (14-59) U/L Alkaline Phosphatase (46-116) U/L Troponin I (<or=60) ng/L Total Protein (6.4-8.2) g/dL Albumin (3.4-5.0) g/dL COVID-19 Source Not Applicable SARS-CoV-2 (PCR) (Negative) Negative Influenza Type A (PCR) (Negative) Negative Influenza Type B (PCR) (Negative) Negative RSV (PCR) (Negative) Negative ECG Data Attestation: I personally reviewed and interpreted this ECG (s) as follows: Interpretation: Sinus rhythm, ventricular of 65, no STEMI. HPI General Mode of arrival: ambulatory . Date/Time Provider Initiated Documentation: 07/17/22 10:08 . Limitations to Documentation: no limitations . Information obtained by: patient . HPI Narrative: This is a 71-year-old female, past medical history of COPD, current smoker, essential tremor, anxiety, presenting to the ER for evaluation of 1 week history of primarily a dry cough, nasal congestion, worsening shortness of breath. States this morning her shortness of breath was more severe prompting her to seek medical evaluation. Reports that overall her lungs feel better now than they did this morning. Patient has a rescue inhaler but no daily inhaler. She denies headache, fever, chest pain, abdominal pain, nausea, vomiting. Admits to fatigue. Denies pain or swelling in her calves. Reports that she is up-to-date on her immunizations for both COVID and the flu. Related Data Home Medications Medication Instructions Recorded Confirmed Caltrate-600 With Vit D Tab 3 ea PO DAILY 09/19/12 07/17/22 Centrum Silver Tablet 1 ea PO DAILY 09/19/12 07/17/22 acetaminophen 500 mg tablet 1,000 mg PO Q8H PRN pain #90 tabs 02/10/19 07/17/22 rotigotine 3 mg/24 hour 3 mg transdermal DAILY #1 ea 01/05/22 07/17/22 transdermal 24 hour patch (Neupro) trazodone 50 mg tablet 50 mg PO QHS sleep #90 tabs 01/05/22 07/17/22 ropinirole 0.25 mg tablet See Rx Instructions PO QHS #360 02/02/22 07/17/22 tabs ipratropium 20 mcg-albuterol 100 1 puff inhalation TID PRN wheezing 03/19/22 07/17/22 mcg/actuation mist for inhalation #4 grams (Combivent Respimat) tramadol 50 mg tablet 50 mg PO QHS 04/07/22 07/17/22 prednisone 20 mg tablet 40 mg PO DAILY 5 days #10 tabs 07/17/22 Previous Rx's Medication Instructions Recorded acetaminophen 500 mg tablet 1,000 mg PO Q8H PRN pain #90 tabs 02/10/19 rotigotine 3 mg/24 hour 3 mg transdermal DAILY #1 ea 01/05/22 transdermal 24 hour patch (Neupro) trazodone 50 mg tablet 50 mg PO QHS sleep #90 tabs 01/05/22 ropinirole 0.25 mg tablet See Rx Instructions PO QHS #360 02/02/22 tabs ipratropium 20 mcg-albuterol 100 1 puff inhalation TID PRN wheezing 03/19/22 mcg/actuation mist for inhalation #4 grams (Combivent Respimat) prednisone 20 mg tablet 40 mg PO DAILY 5 days #10 tabs 07/17/22 Allergies Allergy/AdvReac Type Severity Reaction Status Date / Time ibuprofen Allergy Unknown ITCHING, Verified 07/17/22 10:06 FACE SWELLS Sulfa (Sulfonamide AdvReac Unknown NAUSEA Verified 07/17/22 10:06 Antibiotics) General Stated Complaint: RespSymp CAMILLA: 4 Review of Systems Constitutional Constitutional: Reports fatigue, Denies fever(s), Denies headache(s) and Denies weakness ENT Ears, Nose, Mouth, and Throat: Denies headache(s) and Denies neck pain Cardiovascular Cardiovascular: Denies chest pain and Reports dyspnea Respiratory Respiratory: Reports cough and Reports dyspnea Gastrointestinal Gastrointestinal: Denies abdominal pain, Denies nausea and Denies vomiting Musculoskeletal Musculoskeletal: Denies back pain and Denies neck pain Integumentary/Breasts Skin/Breast: Denies rash Neurologic Neurologic: Denies headache(s) and Denies weakness Endocrine Endocrine: Reports fatigue Hematologic/Lymphatic Hematologic/Lymphatic: Denies easy bleeding and Denies easy bruising PFSH All Active Problems (Updated 07/17/22 @ 14:29 by JOSHUA Johnson) Degenerative joint disease of left hip (Acute) Cough (Acute) COPD (chronic obstructive pulmonary disease) (Chronic) Left hip pain (Acute) Other hammer toe (acquired) (Acute) Corns and callosities (Acute) Restless leg syndrome (Acute) Toe deformity (Acute) Nicotine dependence (Acute) as of 10/2021-07/13 ppd Benign essential tremor (Acute) Grief (Chronic) Stress due to spouse with dementia (Acute) Post-traumatic osteoarthritis, left ankle and foot (Acute) Trochanteric bursitis of left hip (Acute) Injected: 06/16/2021; 03/25/2020 Sensorineural hearing loss (Acute 02/08/14) Smoker (Chronic 11/01/14) Wears patch Osteoporosis (Chronic) Moderate obstructive sleep apnea (Chronic 01/10/16) Does not wear CPAP or BiPAP 01/10/16;SLEEP STUDY-[facility] Insomnia (Chronic 04/12/14) Cervical high risk human papillomavirus (HPV) DNA test positive (Chronic 12/17/11) 2008, 2008, 2009;colp BX., ECC benign; Anxiety (Chronic 03/31/12) Medical History Abnormal thyroid blood test Acute cystitis Closed displaced fracture of lateral malleolus of right fibula (09/23/15) Winter 2017 Surgical History Appendectomy colposcopy ECC BENIGN History of total right hip replacement (02/09/19) Dr. Morrell Status post tonsillectomy Family History Mother , ACCIDENTAL/FALL at age 88. Dementia Neoplasm BREAST/SKIN Father , 72 Lung cancer Sister , age 42 - hit by a car No problems noted. Sister No problems noted. Sister No problems noted. Son No problems noted. Son No problems noted. Social History Smoking/Tobacco Use Status: Current-Occasional Tobacco Type: cigarettes Tobacco: How many years used: 52 Quit status: considering quitting Second Hand Exposure: Yes Smoking risk assessment performed?: Yes Alcohol Intake: current Alcohol Intake frequency: a few times a week Alcohol type: wine Drug use: Never Substance use type: does not use Caregiver/Support person: No Household members: none Housing: house Communication Needs: Hard of Hearing Do you need help understanding health information?: Rarely Pets and animals: No Sexually active: No Do you think of yourself as: straight/heterosexual Current gender identity: female What is your relationship status?: How often do you talk on the phone with friends or family?: three or more times per week How often do you get together with friends or relatives?: once per week How often do you attend adventist or jehovah's witness services?: 4 or more times per year Do you belong to any clubs or organized social groups?: no Panel score (0-1 are the most socially isolated patients): 2 What type of physical activity do you participate in: none Frequency: does not exercise Amanda/Religious: Sabianism Special amanda needs: Yes (Just want Pastor Egan TO COME PRAY WHEN DYING.) Seatbelt use: sometimes Helmet use: No Drive intox or ride w/intox combine driver: No Do you feel safe at home: Yes Do you feel safe in your relationship?: Yes Exam Const General: cooperative, healthy appearing, comfortable and no acute distress Orientation: alert and awake [facility] Head: normal to inspection, normocephalic and atraumatic Face and sinus: normal facial exam Mouth: moist mucous membranes Eyes Conjunctivae: conjunctivae normal Neck Neck: normal visual inspection, full ROM, no meningeal signs, trachea midline and supple Resp Effort & Inspection: normal respiratory effort and able to speak in complete sentences Auscultation: diminished lung sounds bilaterally in the lower lung awad and wheezes (Scattered expiratory) Cardio Rate: regular rate Rhythm: regular rhythm GI Palpation: soft, not firm, no guarding and nontender Back/Spine/Pelvis Back: No back tenderness Skin General skin exam: no rashes or lesions noted Neuro General: patient alert, patient awake, moves all extremities and no focal motor deficits Cognition: normal cognition Speech: speech normal Gait: normal gait Sensory Exam: no sensory deficits noted Extrem General: normal to inspection, full ROM, capillary refill normal, no pedal edema and no calf tenderness Psych Appearance: grossly normal Mental Status: mental status grossly normal Course Vital Signs Vital signs: Vital Signs Temperature 36.3 C L 07/17/22 10:03 Pulse 77 07/17/22 10:03 Respiratory Rate 16 07/17/22 10:03 Blood Pressure 122/81 07/17/22 10:03 Pulse Oximetry 94 07/17/22 10:03 Temperature 36.3 C L 07/17/22 10:03 Temperature Source Skin 07/17/22 10:03 Pulse 77 07/17/22 10:03 Respiratory Rate 16 07/17/22 10:03 Blood Pressure 122/81 07/17/22 10:03 Blood Pressure Position Supine 07/17/22 10:03 Pulse Oximetry 94 07/17/22 10:03 Oxygen Delivery Method Room Air 07/17/22 10:03 Oxygen Flow Rate 0 07/17/22 10:03 Pain Level 0 07/17/22 10:03
--- NOTE | 2022-07-17 10:45 | DI.RAD_ITS ---
Exam(s) XR PORTABLE CHEST AP EXAM: XR PORTABLE CHEST AP CLINICAL HISTORY: sob TECHNIQUE: 2D digital imaging was performed. COMPARISON: No exams were available for comparison FINDINGS: Leads overlie the chest. Right costophrenic angle not included on view. LUNGS: Clear. No pleural abnormality seen. HEART: Normal size. AORTA: Normal diameter. BONES: Degenerative changes. Soft tissues: Unremarkable. IMPRESSION: No acute findings. DATA REPOSITORY: RADIATION DOSE DELIVERED:
[2022-07-17 10:58] LABS: Abs Immature Grans 0.03 10^3/uL (0.0-0.06); Absolute Basophil Count 0.02 10^3/uL (0.0-0.2); Absolute Eosinophil Count 0.11 10^3/uL (0.0-0.7); Absolute Lymphocyte Count 1.42 10^3/uL (1.2-3.4); Absolute Monocyte Count 0.28 10^3/uL (0.1-0.8); Absolute Neutrophil Count 4.63 10^3/uL (1.2-6.7); Basophils % 0.3; Eosinophils % 1.7; HCT 42.1 % (36.0-46.0); HGB 13.9 g/dL (11.2-15.7); Immature Grans % 0.5; Lymphocytes % 21.9; MCH 31.4 pg (27.0-33.0); MCV 95 fL (80-95); MPV 11.8 fL (8.0-11.0); Monocytes % 4.3; Neutrophils % 71.3; Platelet Count 149 10^3/uL (130-400); RBC 4.42 10^6/uL (3.93-5.22); RDW 12.5 % (11.7-14.6); WBC 6.49 10^3/uL (4.4-10.8)
[2022-07-17 11:19] LABS: ALT 20 U/L (14-59); AST 20 U/L (15-37); Albumin 3.8 g/dL (3.4-5.0); Alkaline Phosphatase 91 U/L (46-116); Anion Gap 6.7 mmol/L (3-11); BUN 21 mg/dL (7-18); Bilirubin, Total 0.4 mg/dL (0.2-1.0); CO2 28.3 mmol/L (21.0-32.0); Calcium 9.1 mg/dL (8.5-10.1); Chloride 104 mmol/L (98-107); Estimated GFR 59.49 (mL/min/1.73m2); Glucose 98 mg/dL (74-106); Magnesium 2.5 mg/dL (1.8-2.4); Potassium 4.3 mmol/L (3.5-5.1); Sodium 139 mmol/L (136-145); Total Protein 7.4 g/dL (6.4-8.2); Troponin I < 50 ng/L (<or=60)
[2022-07-17] MEDS: Albuterol 2.5 MG/3 ML INH SOLN VIAL UPD (11:30)
[2022-07-17] MEDS: Albuterol/Ipratropium 3 ML UPD VIAL UPD (11:30)
[2022-07-17 11:45] LABS: COVID-19 PCR Negative (Negative); Influenza A PCR Negative (Negative); Influenza B PCR Negative (Negative); RSV PCR Negative (Negative)
--- NOTE | 2022-07-17 12:45 | DI.CT_ITS ---
Exam(s) CT CHEST PE CTA EXAM: CT CHEST PE CTA CLINICAL HISTORY: sob, elevated dimer. TECHNIQUE: Imaging Protocol: Axial CT angiography was performed with multi-slice acquisition and mu lti-planar reconstructions as well as axial, coronal and sagittal MIP reconstructions. CONTRAST MATERIAL: Intravenous: Omnipaque 350 Contrast volume:100 ml COMPARISON: CT CT CHEST LUNG CANCER SCREEN from 11/27/2021 FINDINGS: Pulmonary Arteries: No evidence of filling defect to suggest pulmonary emboli. Tracheobronchial tree: Patent where visualized. Mediastinum and Rosi: No dominant adenopathy or fluid collection. Pulmonary parenchyma: No consolidation or dominant measurable mass. Pleura: No effusion or pneumothorax. Heart: The heart is mildly dilated. No coronary artery calcifications are seen. Aorta: ascending aorta measures 4.2 cm. No dissection. Mild atherosclerotic changes. Upper abdomen: Unremarkable. Bones: Degenerative changes with prominent flowing osteophytes lower thoracic spine. IMPRESSION: No evidence of pulmonary embolism or other acute abnormality.. Findings called to Andrews Weinstein, emergency department provider RADIATION DOSE DELIVERED: 286.96mGy.cm Total DLP DATA REPOSITORY: All CT scans at this facility are submitted to the National Radiology Data Registry (NRDR) Dose Index Registry (DIR) with the [employer] (A[employer]). RADIATION OPTIMIZATION: All CT scans at this facility use at least one of these dose optimization te chniques: automated exposure control; mA and/or kV adjustment per patient size (includes targeted exa ms where dose is matched to clinical indication); or iterative reconstruction.
[2022-07-17 12:56] LABS: D-Dimer 1826 ng/mlFEU (<500)
[2022-07-17] MEDS: Normal Saline - Diluent 50 ML VIAL IV (13:49)
[2022-07-17] MEDS: Omnipaque 350 MG/ML 100 ML BTL IJ (13:50)
[2022-07-17 14:24] LABS: PTT Activated 22.3 sec (21.0-27.5); Prothrombin Time 10.3 sec (9.3-11.0)
== END 2022-07-17 14:39 | disposition home or self-care (01) ==
PROVIDERS: Emergency Provider Physician Assistant; PCP Family Medicine
DX: R05.9 Cough, unspecified (principal); J44.9 Chronic obstructive pulmonary disease, unspecified; R06.02 Shortness of breath; R09.81 Nasal congestion; Z20.822 Contact with and (suspected) exposure to COVID-19
CPT/HCPCS: 36415; 71275; 80053; 87637; 93005; 94640; 99284; 99285; 71045; 83735; 84484; 85025; 85379; 85610; 85730; 93010; J3490; J7613; J7620

== ENCOUNTER 2022-08-11 07:09 | Day surgery (SDC) | payer OTHER, MEDICAID, SELFPAY ==
[2022-08-11] VITALS (16 sets, daily range): BP systolic 83–123; BP diastolic 33–79; PULSE 60–79; RESP 16–24; TEMP 36.2–37.1; O2SAT 95–98; BMI 21.7
--- NOTE | 2022-08-11 | DI.RAD_ITS ---
Exam(s) XR PELVIS AP EXAM: XR PELVIS AP CLINICAL HISTORY: Confirm placement s/p audible pop sound.. TECHNIQUE: 2D digital imaging was performed. One images were obtained. AP views were obtained. COMPARISON: CR XR HIP PELVIS ADULT BL from 02/12/2020 XA XR HIP LT IN OR from 08/11/2022 FINDINGS: BONES: There are stable post operative changes present. No fracture or dislocation. JOINTS: The orthopedic hardware is in good position. No evidence of hardware loosening. SOFT TISSUE: Postsurgical changes are seen in the soft tissues. IMPRESSION: Stable postoperative changes. DATA REPOSITORY: RADIATION DOSE DELIVERED:
[2022-08-11] MEDS: Lactated Ringers 1,000 ML 80 ML IV (07:45)
[2022-08-11] MEDS: Acetaminophen 500 MG TAB 1000 MG PO (07:49)
[2022-08-11] MEDS: Celecoxib 200 MG CAP 400 MG PO (07:49)
--- NOTE | 2022-08-11 07:59 | W.ANESPRE ---
General Info Date of Service Date Performed: 08/11/22 Height: 5 ft 8 in Weight: 65 kg Body Mass Index (BMI): 21.7 Surgical Procedure: Operation Date: 08/11/22 10:05 Proposed Procedure Side Surgeon p Hip Total Hip Anterior Left Luther Morrell MD Meds Allergies and Home Medications Allergies Allergy/AdvReac Type Severity Reaction Status Date / Time ibuprofen Allergy Unknown ITCHING, Verified 08/11/22 07:21 FACE SWELLS Sulfa (Sulfonamide AdvReac Unknown NAUSEA Verified 08/11/22 07:21 Antibiotics) Home Medication Medication Instructions Recorded Caltrate-600 With Vit D Tab 3 ea PO DAILY 09/19/12 Centrum Silver Tablet 1 ea PO DAILY 09/19/12 acetaminophen 500 mg tablet 1,000 mg PO Q8H PRN pain #90 tabs 02/10/19 trazodone 50 mg tablet 50 mg PO QHS sleep #90 tabs 01/05/22 ipratropium 20 mcg-albuterol 100 1 puff inhalation TID PRN wheezing 03/19/22 mcg/actuation mist for inhalation #4 grams (Combivent Respimat) oxycodone 5 mg tablet 5 mg PO QHS PRN pain #30 tabs 07/21/22 ropinirole 0.5 mg tablet 0.5 - 1 mg PO QHS #180 tabs 07/21/22 rotigotine 3 mg/24 hour 3 mg transdermal DAILY #90 ea 07/21/22 transdermal 24 hour patch (Neupro) Current Visit Medications: Current Medications Generic Name Dose Route Start Last Admin Trade Name Freq PRN Reason Stop Dose Admin Acetaminophen 1,000 mg 08/11/22 06:00 08/11/22 07:49 Acetaminophen 500 Mg Tab PO 08/11/22 16:00 1,000 mg PREOP MAURICE Administration Celecoxib 400 mg 08/11/22 06:00 08/11/22 07:49 Celecoxib 200 Mg Cap PO 08/11/22 16:00 200 mg PREOP MAURICE Administration Tranexamic Acid 1,000 mg/ 60 mls @ 360 mls/hr 08/11/22 06:00 Sodium Chloride IV 08/11/22 16:00 PREOP MAURICE Ringer's Solution 1,000 mls @ 80 mls/hr 08/11/22 06:00 IV 09/09/22 23:59 INFUSION MAURICE Cefazolin Sodium/Dextrose 2 gm in 50 mls @ 100 mls/hr 08/11/22 06:00 Ancef Duplex IVPB 09/09/22 23:59 PREOP MAURICE IV Miscellaneous Supplies 1 each 08/11/22 06:00 Iv Access IV 09/09/22 23:59 DIRECTED MAURICE Sodium Chloride 0 ml 08/11/22 06:00 Normal Saline Flush 10 Ml Syr IV 09/09/22 23:59 PRN PRN Sodium Chloride 0 ml 08/11/22 06:00 Normal Saline 10 Ml Vial IJ 09/09/22 23:59 DIRECTED PRN Sterile Water 0 ml 08/11/22 06:00 Water,Injection,Sterile 10 Ml Vial IJ 09/09/22 23:59 DIRECTED PRN PFSH Active Problems Active Problems: Problem Status Onset Code Degenerative joint disease of left hip M16.12 Cough R05.9 COPD (chronic obstructive pulmonary disease) J44.9 Left hip pain M25.552 Other hammer toe (acquired) M20.40 Corns and callosities L84 Restless leg syndrome G25.81 Toe deformity M20.60 Nicotine dependence F17.200 Benign essential tremor G25.0 Grief F43.21 Stress due to spouse with dementia Z63.79 Post-traumatic osteoarthritis, left ankle and foot M19.172 Trochanteric bursitis of left hip M70.62 Sensorineural hearing loss 02/08/14 H90.5 Smoker 11/01/14 F17.200 Osteoporosis M81.0 Moderate obstructive sleep apnea 01/10/16 G47.33 Insomnia 04/12/14 G47.00 Cervical high risk human papillomavirus (HPV) DNA test positive 12/17/11 R87.810 Anxiety 03/31/12 F41.9 Medical History Medical History Abnormal thyroid blood test Acute cystitis Closed displaced fracture of lateral malleolus of right fibula (09/23/15) Winter 2017 Surgical History Surgical History Appendectomy colposcopy ECC BENIGN History of total right hip replacement (02/09/19) Dr. Morrell Status post tonsillectomy Tobacco Smoking/Tobacco Use Status: Current-Occasional Tobacco Type: cigarettes Passive smoking exposure: Yes Second hand exposure: Yes Alcohol Alcohol Intake: current Alcohol intake frequency: a few times a week Alcohol type: wine Substance Use Substance use: Never Substance use type: does not use Vital Signs and Lab Results Vital Signs Most Recent Vital Signs in EMR: Most Recent Vital Signs Temp Pulse Resp BP Pulse Ox 37.1 C 73 16 104/52 L 98 08/11/22 07:15 08/11/22 07:15 08/11/22 07:15 08/11/22 07:15 08/11/22 07:15 Lab Results Blood Type / Crossmatch: No Data to Display Complete Blood Count: White Blood Count 6.49 10^3/uL (4.4-10.8) 07/17/22 10:50 Red Blood Count 4.42 10^6/uL (3.93-5.22) 07/17/22 10:50 Hemoglobin 13.9 g/dL (11.2-15.7) 07/17/22 10:50 Hematocrit 42.1 % (36.0-46.0) 07/17/22 10:50 Platelet Count 149 10^3/uL (130-400) 07/17/22 10:50 Complete Metabolic Panel: Sodium 139 mmol/L (136-145) 07/17/22 10:50 Potassium 4.3 mmol/L (3.5-5.1) 07/17/22 10:50 Chloride 104 mmol/L (98-107) 07/17/22 10:50 Carbon Dioxide 28.3 mmol/L (21.0-32.0) 07/17/22 10:50 BUN 21 mg/dL (7-18) H 07/17/22 10:50 Creatinine 1.0 mg/dL (0.55-1.02) 07/17/22 10:50 Est GFR (CKD-EPI 2020) 59.49 (mL/min/1.73m2) 07/17/22 10:50 Magnesium 2.5 mg/dL (1.8-2.4) H 07/17/22 10:50 Calcium 9.1 mg/dL (8.5-10.1) 07/17/22 10:50 Albumin 3.8 g/dL (3.4-5.0) 07/17/22 10:50 Glucose 98 mg/dL (74-106) 07/17/22 10:50 Liver Function Panel: Alanine Aminotransferase (ALT/SGPT) 20 U/L (14-59) 07/17/22 10:50 Aspartate Amino Transf (AST/SGOT) 20 U/L (15-37) 07/17/22 10:50 Coagulation Panel: INR International Normalized Ratio 1.0 (0.9-1.1) 07/17/22 10:50 Prothrombin Time 10.3 sec (9.3-11.0) 07/17/22 10:50 Activated Partial Thromboplast Time 22.3 sec (21.0-27.5) 07/17/22 10:50 D-Dimer 1826 ng/mlFEU (<500) H 07/17/22 10:50 Cardiac Panel: Troponin I < 50 ng/L (<or=60) 07/17/22 Arterial Blood Gas: No Data to Display Venous Blood Gas: No Data to Display Pancreas Panel: No Data to Display Thyroid Panel: No Data to Display Infectious Disease: Coronavirus (COVID-19)(PCR) Negative (Negative) 07/17/22 11:00 Coronavirus 2019 Source Not Applicable 07/17/22 11:00 Influenza Virus Type A (PCR) Negative (Negative) 07/17/22 11:00 Influenza Virus Type B (PCR) Negative (Negative) 07/17/22 11:00 Respiratory Syncytial Virus (PCR) Negative (Negative) 07/17/22 11:00 Blood Cultures: No Data to Display Toxicology Panel: No Data to Display Anesthesia Assessment and Plan Anesthesia History Personal History: No History of Anesthesia Complications Family History: No Family History of Anesthesia Complications Exercise Tolerance Exercise Tolerance: Metabolic Equivalents>4 Pertinent Negatives Pertinent Negatives: No Symptoms of GERD and No Major Cardiovascular Symptoms or Complaints Cardiac & Pulmonary Exam Cardiac Exam: Normal S1/S2 Heart Sounds Pulmonary Exam: Clear Bilateral Breath Sounds Implantable Cardiac Device Does patient have a Pacemaker or an ICD?: No Airway Exam Known Difficult Airway: No Mallampati Class: 1 Mouth Opening: Normal (> 3cm) Thyromental Distance: Greater than 3 cm Neck Range of Motion: Full ROM Neck Circumference: Normal Teeth Condition: Normal Dentition ASA Classification ASA Score: ASA 2 Emergency Case?: No NPO Status NPO Status: NPO Clears >2 hours, Solids >8 hours Anesthesia Plan Resuscitation Status: Full Code Anesthesia Technique: Spinal Anesthesia Airway Planned: Natural Airway Monitors Used: Standard Monitors
--- NOTE | 2022-08-11 08:00 | HPE_ITS ---
Assessment and Plan Assessment and plan (1) Degenerative joint disease of left hip: Status: Acute Assessment and plan: Radha is a 71-year-old female who has known arthritis of the left hip. She did very well from a right hip replacement. Given the limitation she is having on a daily basis I offered hip replacement. She has recovered from an upper respiratory infection. She currently has no active symptoms. I reviewed the hip replacement with her once again in detail. I discussed the risk to include bleeding, infection, pain, stiffness, damage nerves and vessels, damage to muscle and tendons, ligaments inequality, fracture, loosening, need for repeat procedures, blood clot. Despite these risk, she elects to proceed. History of Present Illness History of Present Illness Chief Complaint: Left Hip Pain Narrative: Radha is a 71-year-old who has known arthritis of the left hip. She was previously scheduled for surgery some weeks ago but developed an upper respiratory infection. Please reference a previous history and physical for complete detailed history. There is been no change from that document. She c urrently has been without any chest congestion, cough, fever, chills for greater than 2 weeks. She feels much better. She continues have pain about the left hip and groin with any weightbearing activities. She denies any new symptoms. Review of Systems All systems reviewed & are unremarkable except as noted in HPI and below PFSH All Active Problems Degenerative joint disease of left hip (Acute) Cough (Acute) COPD (chronic obstructive pulmonary disease) (Chronic) Left hip pain (Acute) Other hammer toe (acquired) (Acute) Corns and callosities (Acute) Restless leg syndrome (Acute) Toe deformity (Acute) Nicotine dependence (Acute) as of 10/2021-07/13 ppd Benign essential tremor (Acute) Grief (Chronic) Stress due to spouse with dementia (Acute) Post-traumatic osteoarthritis, left ankle and foot (Acute) Trochanteric bursitis of left hip (Acute) Injected: 06/16/2021; 03/25/2020 Sensorineural hearing loss (Acute 02/08/14) Smoker (Chronic 11/01/14) Wears patch Osteoporosis (Chronic) Moderate obstructive sleep apnea (Chronic 01/10/16) Does not wear CPAP or BiPAP 01/10/16;[facility]UDY[facility] Insomnia (Chronic 04/12/14) Cervical high risk human papillomavirus (HPV) DNA test positive (Chronic 12/17/11) 2007, 2008, 2009;colp BX., ECC benign; Anxiety (Chronic 03/31/12) Medical History Abnormal thyroid blood test Acute cystitis Closed displaced fracture of lateral malleolus of right fibula (09/23/15) Winter 2017 Surgical History Appendectomy colposcopy ECC BENIGN History of total right hip replacement (02/09/19) Dr. Morrell Status post tonsillectomy Family History Mother , ACCIDENTAL/FALL at age 88. Dementia Neoplasm BREAST/SKIN Father , 72 Lung cancer Sister , age 42 - hit by a car No problems noted. Sister No problems noted. Sister No problems noted. Son No problems noted. Son No problems noted. Social History Smoking/Tobacco Use Status: Current-Occasional Tobacco Type: cigarettes Tobacco: How many years used: 52 Quit status: considering quitting Second Hand Exposure: Yes Smoking risk assessment performed?: Yes Alcohol Intake: current Alcohol Intake frequency: a few times a week Alcohol type: wine Drug use: Never Substance use type: does not use Caregiver/Support person: No Household members: none Housing: house Communication Needs: Hard of Hearing Do you need help understanding health information?: Rarely Pets and animals: No Sexually active: No Do you think of yourself as: straight/heterosexual Current gender identity: female What is your relationship status?: How often do you talk on the phone with friends or family?: three or more times per week How often do you get together with friends or relatives?: once per week How often do you attend hoahaoism or congregational services?: 4 or more times per year Do you belong to any clubs or organized social groups?: no Panel score (0-1 are the most socially isolated patients): 2 What type of physical activity do you participate in: none Frequency: does not exercise Amanda/Gnosticist: Hindu Special amanda needs: Yes (Just want Pastor Egan TO COME PRAY WHEN DYING.) Seatbelt use: sometimes Helmet use: No Drive intox or ride w/intox vacuum truck driver: No Do you feel safe at home: Yes Additional Social history: Per pt states she is to have home health Meds Allergies and Home Medications Allergies Allergy/AdvReac Type Severity Reaction Status Date / Time ibuprofen Allergy Unknown ITCHING, Verified 08/11/22 07:21 FACE SWELLS Sulfa (Sulfonamide AdvReac Unknown NAUSEA Verified 08/11/22 07:21 Antibiotics) Home Medications Medication Instructions Recorded Confirmed Type Caltrate-600 With Vit D Tab 3 ea PO DAILY 09/19/12 08/11/22 History Centrum Silver Tablet 1 ea PO DAILY 09/19/12 08/11/22 History acetaminophen 500 mg tablet 1,000 mg PO Q8H PRN pain #90 tabs 02/10/19 08/10/22 Rx trazodone 50 mg tablet 50 mg PO QHS sleep #90 tabs 01/05/22 08/11/22 Rx ipratropium 20 mcg-albuterol 100 1 puff inhalation TID PRN wheezing 03/19/22 08/10/22 Rx mcg/actuation mist for inhalation #4 grams (Combivent Respimat) oxycodone 5 mg tablet 5 mg PO QHS PRN pain #30 tabs 07/21/22 08/10/22 Rx ropinirole 0.5 mg tablet 0.5 - 1 mg PO QHS #180 tabs 07/21/22 08/11/22 Rx rotigotine 3 mg/24 hour 3 mg transdermal DAILY #90 ea 07/21/22 08/11/22 Rx transdermal 24 hour patch (Neupro) Exam Const General: cooperative, healthy appearing, comfortable and no acute distress Resp Auscultation: clear to auscultation bilaterally Cardio Rate: regular rate Rhythm: regular rhythm Extrem Other: Left hip without any skin changes. No signs of infection. Pain with internal and external rotation as well as flexion. Results Last Vital Signs Temp 37.1 C 08/11/22 07:15 Pulse 73 08/11/22 07:15 Resp 16 08/11/22 07:15 BP 104/52 L 08/11/22 07:15 Pulse Ox 98 08/11/22 07:15
--- NOTE | 2022-08-11 08:04 | DSE_ITS ---
Date of service: 08/11/22 Time of Service: 09:35 DS: Diagnosis Discharge Diagnosis (1) Degenerative joint disease of left hip: Status: Acute Discharge Plan Disposition Patient Disposition: Home W/Home Health Services Condition: Good Discharge Details Reason For Visit: Left hip DJD Attending Provider: Luther Morrell Primary Care Provider: Radhika Amaro Home Meds and New Rx's Prescriptions: New acetaminophen 500 mg tablet 500 mg PO Q6H PRN (Reason: pain) Qty: 60 2RF aspirin 81 mg tablet,delayed release (DR/EC) 81 mg PO BID 30 Days Qty: 60 0RF celecoxib [Celebrex] 200 mg capsule 200 mg PO BID PRNQty: 60 0RF Rx Instructions: Take one tablet twice daily for pain and inflammation docusate sodium [Colace] 100 mg capsule 100 mg PO BID Qty: 30 0RF dexamethasone 4 mg tablet 4 mg PO DAILY Qty: 2 0RF Rx Instructions: Take one tablet once daily for two days oxycodone 5 mg tablet 5 mg PO Q6H PRN (Reason: severe post-operative pain) Qty: 12 0RF Rx Instructions: Take one tablet up to every 6 hours as needed for severe pain pantoprazole 40 mg tablet,delayed release (DR/EC) 40 mg PO DAILY Qty: 14 0RF Continued trazodone 50 mg tablet 50 mg PO QHS Qty: 90 4RF ropinirole 0.5 mg tablet 0.5 - 1 mg PO QHS Qty: 180 3RF CALTRATE-600 WITH VIT D TAB 1 EACH tablet 3 ea PO DAILY CENTRUM SILVER TABLET 1 EACH tablet 1 ea PO DAILY Combivent Respimat 20-100 mcg/actuation mist 1 puff inhalation TID PRN (Reason: wheezing) Qty: 4 3RF Rx Instructions: space evenly during waking hours Neupro 3 mg/24 hour patch 24 hour 3 mg transdermal DAILY Qty: 90 3RF Held oxycodone 5 mg tablet 5 mg PO QHS MDD 1 PRN (Reason: pain) Qty: 30 0RF Hold Instructions: Resume on 08/18/22. Hold while using the post-operative prescription Discontinued acetaminophen 500 mg tablet 1,000 mg PO Q8H PRN (Reason: pain) Qty: 90 3RF Discharge Instructions Additional Instructions: Total Hip Discharge Instructions Activity: The most important activity is to walk. You should try to take short walks a few times a day. You have no restrictions on movement or positioning, but do not try to force what you do. You will find some stiffness and weakness with hip flexion (lifting your knee). Do not try to strengthen this too early, continue to practice walking and stairs and this will come. - Outpatient physical therapy can be helpful to help return you to a normal gait and improve your flexibility and strength. This can start around 2 weeks. For some patients, it?s not necessary. Usually this is determined at the time of discharge or at the first post-operative visit. - You should wear the CONRADO hose on both legs for 2 weeks. Dressing: Keep the surgical dressing in place for at least one week. After the first week it may be removed and replace with light gauze and tape or nothing. It may get wet after 3 days but avoid soaking the dressing. If it gets wet, just lightly pat dry. It is important to always keep some gauze between skin folds, especially when you are sitting. Spend some time with the wound exposed when you are lying flat as the incision does wrinkle onto itself. Medications: - You should take Tylenol and an anti-inflammatory Celebrex as your primary pain control medications. If the Celebrex is too expensive or not covered, please call the office for another alternative (Advil/Ibuprofen or Naproxen/Aleve). - You have been prescribed a stronger pain medication Oxycodone for breakthrough pain, take as needed as prescribed. - You have also been prescribed a stomach acid reduction agent Pantoprozole to help reduce stomach acid and reflux. - You have also been prescribed Decadron to help with post-operative nausea and pain. You will take this for two days starting tomorrow. - You will be taking Aspirin 81mg twice a day for DVT prevention unless instructed otherwise. - If you have constipation you should take Colace (which has been prescribed) or Miralax (which is available [id number]). It takes most people 3-4 days to have a bowel movement. Follow-up: 2 weeks If you have any acute concerns or questions, please do not hesitate to contact the office at [phone]. You may contact Dr. Morrell with any questions after hours through the hospital at [phone] or on his cell phone at [phone]. 1. Encounter Date and Reason I certify that Colleen Momin was seen by Luther Morrell MD on 08/11/22 and that I had a [id number] encounter with this patient that meets the physician face to face encounter requirements. 2. Clinical Findings Supporting Skilled Need and Homebound Status I certify that home health services are medically necessary, include either intermittent [place] [facility] and/or physical/speech therapy, and that this patient is homebound in that absences from the home require considerable and taxing effort and are infrequent or of short duration, or are attributable to the need to receive medical care. [X] (a) Attached documentation from encounter provides clinical findings supporting skilled need and homebound status (including what assistance patient requires to leave the home). The encounter with the patient was in whole, or in part, for the following medical condition, which is the primary reason for home health care: Left hip DJD Assisted: Radha is status post left hip replacement. Given her multiple medical issues and recent surgery with multiple discharge medications, [place] [facility] is recommended. Physical Therapy: Richelle is status post left hip replacement. She would benefit from home health physical therapy to assess her function at home but also to help improve her amatory independence and strength. She had an anterior approach hip and has no hip precautions. It's recommended to ambulate with a walker. Speech Therapy: Homebound: Radha is homebound as she recovers from a left hip replacement. She has notable weakness and gait dysfunction which prevents her ability to leave the home unassisted. 3. Certification and Authentication I certify that I composed the above information based on my clinical judgement relating to this patient's medical condition and, if applicable, clinical findings communicated to me by the NPP or inpatient physician who performed the Home Health Referral. All further orders will be obtained through Dr. Morrell Referrals: Luther Morrell MD [ [facility] STAFF PHYSICIAN] - Equipment/Supplies: Walker Activity:: Activity as Tolerated Remove Dressings/Wound Care:: Do Not Remove Shower/Bathe:: Cover Diet:: As Tolerated Discharge Orders Discharge Orders: Discharge Order (Routine); Ordered 08/11/22 Ordered By: Luther Morrell DS: Summary Time Spent with Patient providing and/or coordinating discharge services: Less than 30 minutes Status at Discharge Functional status at discharge: uses cane/walker Overall status at discharge: patient is progressing back to baseline Mental Status: mental status grossly normal Speech and Movement: speech and movement normal Mood: congruent mood Affect: normal affect Exam Psych Mental Status: mental status grossly normal Speech and Movement: speech and movement normal Mood: congruent mood Affect: normal affect DS: Data Vitals/I&O Vitals and I&O: Vital Signs Temperature 98.8 F 08/11/22 07:15 Pulse 73 08/11/22 07:15 Pulse Rhythm Regular 08/11/22 07:15 Respiratory Rate 16 08/11/22 07:15 Respiratory Depth Normal 08/11/22 07:15 Blood Pressure 104/52 L 08/11/22 07:15 Pulse Oximetry 98 08/11/22 07:15 Oxygen Delivery Method Room Air 08/11/22 07:15 Oxygen Flow Rate 0 08/11/22 07:15 Pain Level 0 08/11/22 07:15 Intake & Output 08/10/22 08/10/22 08/11/22 11:59 23:59 11:59 Weight 143 lb 8.017 oz 143 lb 4.807 oz PFSH All Active Problems Degenerative joint disease of left hip (Acute) Cough (Acute) COPD (chronic obstructive pulmonary disease) (Chronic) Left hip pain (Acute) Other hammer toe (acquired) (Acute) Corns and callosities (Acute) Restless leg syndrome (Acute) Toe deformity (Acute) Nicotine dependence (Acute) as of 10/2021-07/13 ppd Benign essential tremor (Acute) Grief (Chronic) Stress due to spouse with dementia (Acute) Post-traumatic osteoarthritis, left ankle and foot (Acute) Trochanteric bursitis of left hip (Acute) Injected: 06/16/2021; 03/25/2020 Sensorineural hearing loss (Acute 02/08/14) Smoker (Chronic 11/01/14) Wears patch Osteoporosis (Chronic) Moderate obstructive sleep apnea (Chronic 01/10/16) Does not wear CPAP or BiPAP 01/10/16;SLEEP STUDY-[facility] Insomnia (Chronic 04/12/14) Cervical high risk human papillomavirus (HPV) DNA test positive (Chronic 12/17/11) 2007, 2008, 2009;colp BX., ECC benign; Anxiety (Chronic 03/31/12) Medical History Abnormal thyroid blood test Acute cystitis Closed displaced fracture of lateral malleolus of right fibula (09/23/15) Winter 2017 Surgical History Appendectomy colposcopy ECC BENIGN History of total right hip replacement (02/09/19) Dr. Morrell Status post tonsillectomy Family History Mother , ACCIDENTAL/FALL at age 88. Dementia Neoplasm BREAST/SKIN Father , 72 Lung cancer Sister , age 42 - hit by a car No problems noted. Sister No problems noted. Sister No problems noted. Son No problems noted. Son No problems noted. Social History Smoking/Tobacco Use Status: Current-Occasional Tobacco Type: cigarettes Tobacco: How many years used: 52 Quit status: considering quitting Second Hand Exposure: Yes Smoking risk assessment performed?: Yes Alcohol Intake: current Alcohol Intake frequency: a few times a week Alcohol type: wine Drug use: Never Substance use type: does not use Caregiver/Support person: No Household members: none Housing: house Communication Needs: Hard of Hearing Do you need help understanding health information?: Rarely Pets and animals: No Sexually active: No Do you think of yourself as: straight/heterosexual Current gender identity: female What is your relationship status?: How often do you talk on the phone with friends or family?: three or more times per week How often do you get together with friends or relatives?: once per week How often do you attend presybeterian or mu-ism services?: 4 or more times per year Do you belong to any clubs or organized social groups?: no Panel score (0-1 are the most socially isolated patients): 2 What type of physical activity do you participate in: none Frequency: does not exercise Amanda/Roman Catholic: Jew Special amanda needs: Yes (Just want Fleet Administrator Jignesh TO COME PRAY WHEN DYING.) Seatbelt use: sometimes Helmet use: No Drive intox or ride w/intox miniature train driver: No Do you feel safe at home: Yes Additional Social history: Per pt states she is to have home health Time Spent with Patient Time Spent with Patient: <45 minutes Time was spent: preparing to see the patient(eg.review tests) and ordering medications,tests, procedures
[2022-08-11] MEDS: ceFAZolin 2 GM/50 ML BAG IVPB (09:37)
--- NOTE | 2022-08-11 10:40 | DI.RAD_ITS ---
Exam(s) XR HIP LT IN OR EXAM: XR HIP LT IN OR CLINICAL HISTORY: DJD LEFT HIP TECHNIQUE: 2D and realtime digital imaging was performed. CONTRAST MATERIAL: Refer to procedure report. COMPARISON: No exams were available for comparison FINDINGS: Fluoroscopy was provided for Dr. Morrell during the performance of a left hip arthroplasty. Please refer to the procedure report for complete details. Ka,r=1.6 mGy IMPRESSION: RADIATION DOSE DELIVERED:
[2022-08-11] MEDS: diazePAM 10 MG/2 ML SYR 5 MG IVP (12:21)
[2022-08-11] MEDS: Normal Saline 10 ML VIAL IJ (12:36)
[2022-08-11] MEDS: HYDROmorphone 2 MG/ML SYR IVP (12:36)
--- NOTE | 2022-08-11 13:14 | W.ANESPOSTOP ---
Postoperative Evaluation Date, Time and Location Date Performed: 08/11/22 Time Performed: 13:14 Patient Location: Day Surgery Unit Vital Signs Most Recent Imported Vital Signs: Most Recent Vital Signs Temp Pulse Resp BP Pulse Ox 36.5 C 66 22 96/51 L 97 08/11/22 12:50 08/11/22 12:50 08/11/22 12:50 08/11/22 12:50 08/11/22 12:50 Pain Score Most Recent Pain Score: Most Recent Pain Score Pain Level 4 08/11/22 12:50 Assessment Mental Status: Awake (Alert & Oriented to Patient Baseline) Airway and Respiratory Function: Patent airway with normal (patient baseline) respiratory exam Cardiovascular Function: Hemodynamically Stable Hydration Status: Adequately Hydrated Nausea & Vomiting: No Nausea or Vomiting Pain: Pain is tolerable per patient Peripheral Nerve Block: Patient did not receive a nerve block Postoperative Comments:: Spinal still wearing off. Pt. has significant restless legs for which she usually walks around. She will do PT and discharge will be determined. While in PACU, she was grabbing ankle due to restless legs and was very anxious about this. We heard an audible pop from left hip area with no change in exam. X-Ray completed and read by Dr. Morrell. Pt. was given precedex with mild improvement and did stand at bedside with support x2 people for a short time.
[2022-08-11] MEDS: oxyCODONE 5 MG TAB PO (13:25)
--- NOTE | 2022-08-11 13:48 | IN_ITS ---
Date of service: 08/11/22 Time of Service: 13:48 PT Notes Visit Reasons: Left hip DJD Physical Therapy Day Surgery Initial Evaluation Date: 08/11/2022 Referring Doctor: Luther Morrell MD PT Orders: PT CONSULT: S/P Ortho surgery Precautions: WBAT on right LE with AD. Patient Profile/Admitting Diagnosis: Colleen is a 71-year-old female with degenerative joint disease of the left hip and status post right anterior total hip arthroplasty on postoperative day 0. PMHX: All Active Problems? Degenerative joint disease of left hip (Acute) Cough (Acute) COPD (chronic obstructive pulmonary disease) (Chronic) Left hip pain (Acute) Other hammer toe (acquired) (Acute) Corns and callosities (Acute) Restless leg syndrome (Acute) Toe deformity (Acute) Nicotine dependence (Acute) as of 10/2021-07/13 ppd Benign essential tremor (Acute) Grief (Chronic) Stress due to spouse with dementia (Acute) Post-traumatic osteoarthritis, left ankle and foot (Acute) Trochanteric bursitis of left hip (Acute) Injected: 06/16/2021; 03/25/2020Sensorineural hearing loss (Acute 02/08/14) Smoker (Chronic 11/01/14) Wears patchOsteoporosis (Chronic) Moderate obstructive sleep apnea (Chronic 01/10/16) Does not wear CPAP or BiPAP 01/10/16;SLEEP STUDY-[facility] Insomnia (Chronic 04/12/14) Cervical high risk human papillomavirus (HPV) DNA test positive (Chronic 12/17/11) 2007, 2008, 2009;colp BX., ECC benign; Anxiety (Chronic 03/31/12) Medical History? Abnormal thyroid blood test Acute cystitis Closed displaced fracture of lateral malleolus of right fibula (09/23/15) Winter 2017 Surgical History? Appendectomy colposcopy ECC BENIGNHistory of total right hip replacement (02/09/19) Dr. Morrell Status post tonsillectomy Social History/Home Situation: Lives alone in a private home with 2 to 2-3 steps to enter with no rails however patient will have assistance from family members to get in and out of the house each time. She has 3 steps to go to her bedroom with rails in both sides. Equipment Owned/DME: [facility] Subjective: Patient reports 6/10 pain in right hip at rest and with movement. Was mildly lightheaded when she stood up but this subsided later on the walk. Reported increased lightheadedness at the end of PT session with blood pressure softening to 80s over 50s mmHg per her Nurse Chanel. Per Nurse Pretty and Chanel, patient exhibited restleg leg syndrome and needed to be managed prior to PT. Objective: General Observation: Seated on bedside chair. Mepilex Ag over surgical incision. Daughter in law, Armand present throughout session. Mental Status: Alert and oriented as person and place. Pain: 6/10 pain in the right hip both at rest and with weightbearing ROM: Right Lower Extremity: Hip flexion WFL. Hip abduction WFL. Knee flexion WFL. Ankle dorsiflexion WFL. Ankle plantarflexion WFL. Left Lower Extremity: Hip flexion WFL. Hip abduction WFL. Knee flexion WFL. Ankle dorsiflexion WFL. Ankle plantarflexion WFL. Strength: Right Lower Extremity: Hip flexors 4-/5. Hip abductors 4-/5. Knee flexors 4/5. Knee extensors 4-/5. Ankle dorsiflexors 4/5. Ankle plantarflexors 4/5. Left Lower Extremity:Hip flexors 5/5. Hip abductors 5/5. Knee flexors 5/5. Knee extensors 5/5. Ankle dorsiflexors 5/5. Ankle plantarflexors 5/5. Sensation: Intact as to pain and light pressure in BLE Bed Mobility/Transfers: Supine to sit contact-guard assist Sit to stand contact-guard assist Stand to sit contact-guard assist Bed to chair contact-guard assist Gait: 100 feet using FWW with contact guard assist with no change in pain report. Mildly lightheaded early in the walk but subsided later on. However patient reported increased dizziness after session with BP softening down to 80s/50s mmHg as measured by Nurse Chanel. Stairs: Up and down 6 x 4-inch steps and 4 x 6-inch steps while holding onto crutch on the R and rail on the L. Patient will have support from family with stair negotiation each time. Balance: Static Sitting: Normal Dynamic Sitting: Normal Static Standing: Fair Dynamic Standing: Fair Special Tests: Mobility Limitations Standardized Measure [facility] AM-PAC 6 clicks Basic Mobility Inpatient Short Form: Raw Score: 18 CMS Score: 47% deficit Informed Consent/Education: Patient instructed in purpose of PT consult. Packet containing LILY exercise protocol has been given to patient. Education and training on initial set of exercises that can be done at home have been completed with [id number] Judy as patient became hypotensive. Assessment: Patient presents with clinical signs and symptoms consistent with current/admitting diagnoses that have resulted to mobility limitations, gait instability, generalized weakness, and impairment of motor control as demonstrated by the following impairment level findings: 1. Decreased strength to R hip major muscle groups 2. Impaired standing balance Impairments are contributing to the following functional limitations: 1. Inability to safely ambulate without assistive device 2. Increase completion time for mobility ADL performance 3. Increased fall risk Patient is assessed as a [id number] moderate complexity based on the following: History: 71-year-old female with impairment level findings, functional limitati ons, and past medical history as indicated above Examination: Demonstrable impairment in strength, balance, and mobility level with underlying impairments and functional limitations as documented above Presentation: Evolving Decision Makin moderate Goals: N/A. PT evaluation and 1-2 treatment sessions only for functional mobility training using recommended AD and for HEP instruction. Plan of Care/Treatment Plan: N/A. PT evaluation and 1-2 treatment session only for functional mobility training using recommended AD and for HEP instruction. DISCHARGE RECOMMENDATIONS: Home when medically cleared by orthopedic surgeon. Will benefit from HH PT vs outpatient PT services in order to maximize safety at home, optimize functional mobility outcomes and facilitate independent ambulation with least restrictive assistive device. TREATMENT CODE/TIME: 9716 2 x 20 minutes, 9753 0 x 15 minutes beginning at 13:48 PM. Thank you for the opportunity to participate in the care of this patient. Gabriela Rodriguez PT, DPT, CLT [facility] [place], [place]
--- NOTE | 2022-08-11 17:22 | ROE_ITS ---
Date of service: 08/11/22 Time of Service: 10:45 Operative Note Operative Note DATE OF PROCEDURE: 08/11/22 PRE-OP DIAGNOSIS: Left Hip Osteoarthritis POST-OP DIAGNOSIS: same PROCEDURE: Left Anterior Total Hip Arthroplasty with Intraoperative Navigation SURGEON: Luther Morrell FINANCIAL DIRECTOR: Tracy Osullivan ANESTHESIA TYPE: Spinal Refer to Anesthesia Record ESTIMATED BLOOD LOSS: 200 PATHOLOGY: none sent TOURNIQUET TIME: 0 COMPLICATIONS: None Patient was transported to: PACU Patient's condition: stable Implants: 1. Depuy Ashland Acetabular Component, 52mm 2. Depuy Acetabular Liner, [id number] 3. Depuy Corail Standard Collared Femoral Stem, Size 16 4. Depuy Altrx Ceramic Femoral Head, Size 36+1.5mm Indications: I have seen Radha in clinic for symptoms of hip arthritis, confirmed with radiographic findings. She has exhausted nonoperative methods and was having significant limitations in daily function and desired better function and less pain. I discussed the technical details of a hip replacement. I explained the risks of the procedure to include, but not limited to, bleeding, infection, pain, stiffness, fracture, damage to nerves and vessels, damage to muscles and tendons, loosening, instability, leg length inequality, need for repeat procedure, blood clot and cardiopulmonary demise. Despite these risks, Radha elected to proceed. Findings: There was significant signs of arthritis throughout the hip. Procedure Description: Radha was greeted in the preoperative holding area where the correct side was identified and marked. The consent was reviewed with the patient and signed. The history and physical was updated. All questions were answered. She was taken back to the operating room. A spinal anesthestic was then administered. The feet were wrapped with cast padding and Coban and then placed into the boot liners and then into the boots. Care was taken to protect the skin and make sure the heels were fully down and the boots were stable. The patient was then positioned onto the HANA table. Both legs were held in a neutral position. SCDs were applied. The patient was then slid down onto a peroneal post. Prophylactic antibiotics in the form of Cefazolin were administered. 1g of Tranxemic Acid was given intravenously within 30 minutes of incision. The left leg was then prepped with Chloraprep and draped in a standard fashion. A second prep with Chloraprep was performed prior to placement of a shower-curtain type drape with Iodine impregnated skin protection. A timeout to confirm correct identity, side and site, procedure, allergies, anesthesia, and medical concerns was performed. An obliquely oriented incision was made starting lateral to the ASIS and running distal over the Tensor Fascia Marlene (TFL) muscle belly toward the fibular head, approximately 10cm. The skin and soft tissue was dissected sharply, through Luisana?s fascia, and to the fascia of the TFL. With the fascia and superior border of the IT band identified, the fascia was incised with a new knife just above any perforators from the IT band. The TFL muscle belly was bluntly dissected away from the fascia and moved laterally. The fat between TFL and rectus was identified to ensure the dissection was not within the TFL. Blunt dissection created space between abductors and the capsule and retractor was placed over the lateral femoral neck. The fibers of the rectus femoris tendon were identified and these were freed from the anterior capsule. A second cobra retractor was placed around the medial femoral neck. The TFL was further retracted laterally to show the deep fascia. Careful dissection through this layer identified three main crossing vessels of the lateral femoral circumflex. These were cauterized in multiple locations and then cut without any noticeable bleeding. The TFL was further released bluntly from the deep fascia to expose anterior hip capsule and fat The Celso orthopaedic retractor was then placed beneath the TFL and against sartorius and medial soft tissues to protect and retract the soft tissues. A T-capsulotomy was then performed starting at the superior lateral acetabulum and moving distally to the intertrochanteric ridge. These capsular flaps were tagged with a No. 1 Ethibond and elevated from within. The capsular flaps were released to the shoulder of the lateral neck and to the lesser trochanter to give excellent visualization of the proximal femur. A neck osteotomy was performed using an oscillating saw based on preoperative templates. This cut started in the shoulder and of the lateral neck and exited medially. The saw was at all times directed medially to avoid injury to the greater trochanter. Gross traction was applied to the leg and the osteotomy ope anni. The femoral head was removed with a corkscrew, making sure to protect the TFL on its exit. Traction was released after head removal. This was measured on the back table to determine the starting reamer size. Portions of the rectus obscuring visualization were minimally elevated off the superior acetabulum. An anterior retractor was placed over the anterior wall between capsule and labrum and attached to the Gripper retraction system. The femur was rotated to 90 degrees and medial capsule was fully released until the lesser trochanter was palpable and visible; the femur was returned to 30 degrees. A posterior retractor was placed similarly between capsule and labrum. This provided excellent visualization. The contents of the cotyloid fossa were removed with electrocautery and the labrum was removed with a knife. There was a notable floor osteophyte. There was significant chondromalacia of the superior acetabulum. Acetabular reaming began with a 48mm reamer. This first reaming was directed anterior to posterior and medial to get down to the true floor. This was inspected and reamed until the true floor was reached. The anterior retractor was then released and entry and exit was provided by traction on the capsular flaps. I then reamed sequentially up to a 52mm reamer where good fit was obtained. The larger reamers were oriented based on anatomical reference of the anterior and lateral renteria to ensure proper abduction and anteversion. Positioning and size was confirmed with the fluoroscopy. A 52mm Depuy [place] acetabular component was selected. The acetabulum was reamed around the periphery with the selected acetabular size to prevent a rim fit. The deep tissues were irrigated. The acetabular component was then impacted in a position of about 40-45 degrees of abduction and 15-20 degrees of anteversion, using the patient?s anatomy as the ultimate landmark. Fluoroscopy was used to confirm this. There was excellent watch crystal grinder of the acetabular component and the inserting handle was removed. The acetabular liner, Depuy [id number] polyethylene liner, was inserted and lined up with the tines of the acetabular component. There was no soft tissue interposition. The liner was then impacted into position and confirmed to be well-seated. A portion of the yolie-articular cocktail was then injected around the acetabulum into the capsule and periosteum. This cocktail consisted of 123mg of Ropivacaine, 0.25mg of Epinephrine, 0.04mg of Clonidine, and 15mg of Ketorolac, diluted to 50cc. The leg was rotated to 120 degrees. Any remaining medial capsule was released until the lesser trochanter was easily palpable. A retractor was placed medially. The lateral capsule was further released into the shoulder to allow access to the greater trochanter. A Lopez retractor was placed over the greater trochanter which allowed the trochanter to flip in front of the capsule for excellent exposure. The leg was brought down into maximal extension and 20 degrees of adduction while ensuring there was no impingement on the acetabulum. Any remnant capsule within the trochanter was released. Piriformis and obturator externis were identified and protected. There was excellent access to the proximal femur. The lateral neck remnant was removed with a rongeur. A blunt canal probe was used to identify the canal and trajectory for later broaching. A box osteotome initiated the broach course. A small curved rasp and a curved curette were used to work laterally. Broaching then began with a size 8 Corail broach. This was inserted manually around the trochanter and into the canal before mallet blows. The broach was seated to a few millimeters below the cut level based on the neck cut and the preoperative template. Sequential broaching was continued with the [employer] pneumatic broaching device until a tight fit was obtained with good rotational control of the femur. A trial standard neck was inserted along with a +1.5 trial head. The leg was brought out of extension and adduction and then reduced with traction and internal rotation. The leg was stable anteriorly in a position of 30 degrees of extension and 90 degrees of external rotation. Fluoroscopy was used to ensure there was no fracture and the stem was seated well. Leg lengths were checked with an AP pelvis and pelvic reference points. [employer] navigation system was used to confirm appropriate positioning and leg length and offset. Once content with the desired offset and leg lengths, the leg was brought back into extension, external rotation and adduction. The periosteum and surrounding tissue was injected with remaining portion of the yolie-articular cocktail. The proximal femur was irrigated as well as the deep tissues. The Depuy Corail standard collared stem, size 16, was then manually inserted into the proximal femur making sure to control rotation. It was then malleted into position with light blows, giving breaks to allow bone expansion and decrease risk of fracture. The selected Depuy Altrx Ceramic Head, size 36+1.5mm, was then placed onto the clean and dry trunnion and secured with impaction onto the tapered fit. The leg was brought back out of extension and adduction and reduced with traction and internal rotation. Stability was confirmed with no shuck at 90 degrees of external rotation and 30 degrees of extension. No impingement through range of motion arc. Final x-ray images were obtained with fluoroscopy to confirm adequate positioning and no intraoperative fracture. The deep tissues were thoroughly irrigated with Surgiphor, betadine solution. This was allowed to sit in the wound for 3 minutes before being thoroughly irrigated out with normal saline. The capsule was then reapproximated with the previously placed Ethibond sutures. The TFL fascia was finally closed with a No. 2 Stratafix, barbed suture. Deep tissues were then reapproximated with 0 Vicryl and a running 2-0 Vicryl. The skin was closed with a running 4-0 Monocryl in a subcuticular fashion. This was reinforced with skin glue. A Mepilex silver dressing was applied. At the end of the case, all counts were correct. Radha was transferred to the hospital bed without difficulty and suffering no apparent complication. Radha has a good prognosis. Physical therapy will start today and without restrictions, weight-bearing as tolerated. Aspirin 81mg BID will be used for DVT prophylaxis.
== END 2022-08-11 15:55 | disposition home health service (06) ==
PROVIDERS: PCP Family Medicine; Visit Provider Student in an Organized Health Care Education/Training Program
PROC: (CPT 27130; principal; 2022-08-11 09:45)
DX: M16.12 Unilateral primary osteoarthritis, left hip (principal); J44.9 Chronic obstructive pulmonary disease, unspecified; F17.210 Nicotine dependence, cigarettes, uncomplicated
CPT/HCPCS: 20985; 27130; C1776; 97162; 97530; 72170; 73501; J0690; J1100; J1170; J2250; J2405; J2704; J3360

== ENCOUNTER 2022-08-24 13:24 | Outpatient (CLI) | payer OTHER, MEDICAID, SELFPAY ==
--- NOTE | 2022-08-24 12:52 | DI.RAD_ITS ---
Exam(s) XR HIP LT COMPLETE AP PELVIS EXAM: XR HIP LT COMPLETE AP PELVIS INDICATION: 1st post op L LILY. COMPARISON: CR XR PELVIS AP from 08/11/2022 TECHNIQUE: 2D digital imaging was performed. Two views. FINDINGS: Stable appearance of bilateral hip prostheses. No evidence of fracture or loosening. DATA REPOSITORY: RADIATION DOSE DELIVERED:
== END 2022-08-24 13:25 | disposition home or self-care (01) ==
LOC: DIORS 13:25
PROVIDERS: PCP Family Medicine; Referring Provider Family Medicine; Visit Provider Physician Assistant
DX: Z96.642 Presence of left artificial hip joint (principal); Z96.641 Presence of right artificial hip joint
CPT/HCPCS: 73502

== ENCOUNTER → 2022-09-21 12:58 | Outpatient (BNVA) | payer OTHER, MEDICAID, SELFPAY | PROVIDERS: PCP Family Medicine; Referring Provider Family Medicine; Visit Provider Student in an Organized Health Care Education/Training Program | DX: Z47.1 Aftercare following joint replacement surgery (principal); Z96.642 Presence of left artificial hip joint ==

== ENCOUNTER 2022-10-05 10:45 | Outpatient (CLI) | payer OTHER, MEDICAID, SELFPAY ==
[2022-10-05 11:07] LABS: ALT 21 U/L (14-59); AST 13 U/L (15-37); Albumin 3.8 g/dL (3.4-5.0); Alkaline Phosphatase 86 U/L (46-116); Anion Gap 9.2 mmol/L (3-11); BUN 17 mg/dL (7-18); Bilirubin, Total 0.4 mg/dL (0.2-1.0); CO2 27.8 mmol/L (21.0-32.0); Calcium 9.3 mg/dL (8.5-10.1); Chloride 106 mmol/L (98-107); Estimated GFR 59.49 (mL/min/1.73m2); Glucose 99 mg/dL (74-106); Sodium 143 mmol/L (136-145); TSH (W/Ref FT4) 2.86 uIU/mL (0.36-3.74); Total Protein 7.1 g/dL (6.4-8.2)
== END 2022-10-05 10:46 | disposition home or self-care (01) ==
LOC: LBO 10:46
PROVIDERS: PCP Family Medicine; Visit Provider Family Medicine
DX: R19.7 Diarrhea, unspecified (principal); F41.8 Other specified anxiety disorders; F32.89 Other specified depressive episodes; G47.33 Obstructive sleep apnea (adult) (pediatric)
CPT/HCPCS: 36415; 80053; 87329; 87493; 84443

== ENCOUNTER → 2022-10-14 14:24 | Outpatient (BNVA) | payer OTHER, MEDICAID, SELFPAY | PROVIDERS: PCP Family Medicine; Referring Provider Family Medicine; Visit Provider Psychiatry & Neurology Neurology | DX: G47.00 Insomnia, unspecified (principal); G25.81 Restless legs syndrome; F41.9 Anxiety disorder, unspecified; G25.0 Essential tremor | CPT/HCPCS: 99215 ==

== ENCOUNTER 2022-10-21 03:03 | Outpatient (CLI) | payer OTHER, MEDICAID, SELFPAY ==
[2022-10-21 13:31] LABS: Ferritin 79 ng/mL (8-252)
== END 2022-10-21 03:04 | disposition home or self-care (01) ==
LOC: LBO 03:04
PROVIDERS: PCP Family Medicine; Visit Provider Psychiatry & Neurology Neurology
DX: E61.1 Iron deficiency (principal)
CPT/HCPCS: 36415; 82728

== ENCOUNTER → 2022-12-02 12:49 | Outpatient (BNVA) | payer OTHER, MEDICAID, SELFPAY | PROVIDERS: PCP Family Medicine; Referring Provider Family Medicine; Visit Provider Psychiatry & Neurology Neurology | DX: G47.00 Insomnia, unspecified (principal); G25.81 Restless legs syndrome; F41.9 Anxiety disorder, unspecified; G25.0 Essential tremor | CPT/HCPCS: 99214 ==

== ENCOUNTER 2023-01-01 02:25 | Outpatient (CLI) | payer OTHER, MEDICAID, SELFPAY ==
[2023-01-01 15:39] LABS: HCT 38.9 % (36.0-46.0); MCH 30.8 pg (27.0-33.0); MCHC 33.4 % (32.0-36.0); MCV 92 fL (80-95); MPV 10.7 fL (8.0-11.0); Platelet Count 205 10^3/uL (130-400); RBC 4.22 10^6/uL (3.93-5.22); RDW 13.7 % (11.7-14.6); RDW-SD 46.7 fL; WBC 6.53 10^3/uL (4.4-10.8)
[2023-01-01 16:53] LABS: Iron 102 ug/dL (50-170)
[2023-01-01 16:59] LABS: Ferritin 81 ng/mL (8-252)
== END 2023-01-01 02:26 | disposition home or self-care (01) ==
LOC: LBO 02:25
PROVIDERS: PCP Family Medicine; Visit Provider Family Medicine
DX: D64.9 Anemia, unspecified (principal); R87.810 Cervical high risk human papillomavirus (HPV) DNA test positive; R10.9 Unspecified abdominal pain
CPT/HCPCS: 36415; 85027; 82728; 83540

== ENCOUNTER 2023-01-11 02:06 | Outpatient (CLI) | payer OTHER, MEDICAID, SELFPAY ==
--- NOTE | 2023-01-11 06:30 | DI.US_ITS ---
Exam(s) US ABDOMEN EXAM: US ABDOMEN CLINICAL HISTORY: abdominal pain for months, diarrhea, no wt change, R10.9 TECHNIQUE: Ultrasound abdomen performed using standard protocol. COMPARISON: CT CT CHEST PE CTA from 07/17/2022 FINDINGS: LIVER: Normal size and echogenicity. No focal liver lesions are seen.. GALLBLADDER: No evidence of cholelithiasis. No evidence of wall thickening. No pericholecystic fluid identified. 4 millimeter echogenic focus consistent with a polyp. No follow-up recommended. A smal l amount echogenic material noted in gallbladder neck and cystic duct could represent sludge. EVANS'S SIGN: Negative. BILIARY SYSTEM: No intrahepatic or extrahepatic biliary ductal dilation. KIDNEYS: Kidneys are symmetric in size. No evidence of renal calculi. No evidence of hydronephrosis. 1.5 centimeter parapelvic cyst. No follow-up recommended. PANCREAS: Normal where visualized. SPLEEN: Not enlarged. ABDOMINAL AORTA AND IVC: Visualized portions normal caliber. ASCITES: None seen. IMPRESSION: Small amount of sludge in gallbladder neck. No evidence of acute cholecystitis. DATA REPOSITORY:
== END 2023-01-11 02:26 ==
LOC: DI 02:06
PROVIDERS: PCP Family Medicine; Visit Provider Family Medicine
DX: R10.9 Unspecified abdominal pain; R19.7 Diarrhea, unspecified
CPT/HCPCS: 76700

== ENCOUNTER 2023-01-20 02:08 | Outpatient (CLI) | payer OTHER, MEDICAID, SELFPAY | END 2023-01-20 02:28 | LOC: DI 02:09 | PROVIDERS: PCP Family Medicine; Visit Provider Family Medicine | DX: Z12.31 Encounter for screening mammogram for malignant neoplasm of breast (principal) | CPT/HCPCS: 77063; 77067 ==

== ENCOUNTER 2023-02-26 02:35 | Outpatient (CLI) | payer OTHER, MEDICAID, SELFPAY ==
[2023-02-26 13:12] LABS: Abs Immature Grans 0.04 10^3/uL (0.0-0.06); Absolute Basophil Count 0.02 10^3/uL (0.0-0.2); Absolute Eosinophil Count 0.17 10^3/uL (0.0-0.7); Absolute Lymphocyte Count 1.56 10^3/uL (1.2-3.4); Absolute Monocyte Count 0.32 10^3/uL (0.1-0.8); Absolute Neutrophil Count 4.16 10^3/uL (1.2-6.7); Basophils % 0.3; Eosinophils % 2.7; HCT 43.5 % (36.0-46.0); HGB 14.3 g/dL (11.2-15.7); Immature Grans % 0.6; Lymphocytes % 24.9; MCH 31.3 pg (27.0-33.0); MCHC 32.9 % (32.0-36.0); MCV 95 fL (80-95); MPV 11.6 fL (8.0-11.0); Monocytes % 5.1; Neutrophils % 66.4; Platelet Count 211 10^3/uL (130-400); RBC 4.57 10^6/uL (3.93-5.22); RDW-SD 45.9 fL; WBC 6.27 10^3/uL (4.4-10.8)
[2023-02-26 13:32] LABS: Hemoglobin A1C 5.2 % (<5.7)
[2023-02-26 14:24] LABS: ALT 21 U/L (14-59); AST 16 U/L (15-37); Albumin 3.9 g/dL (3.4-5.0); Alkaline Phosphatase 81 U/L (46-116); Anion Gap 7.3 mmol/L (3-11); BUN 17 mg/dL (7-18); Bilirubin, Total 0.6 mg/dL (0.2-1.0); CO2 31.7 mmol/L (21.0-32.0); CREATININE 0.9 mg/dL (0.55-1.02); Calcium 9.4 mg/dL (8.5-10.1); Chloride 104 mmol/L (98-107); Estimated GFR 67.08 (mL/min/1.73m2); Glucose 94 mg/dL (74-106); Potassium 3.8 mmol/L (3.5-5.1); Sodium 143 mmol/L (136-145); TSH (W/Ref FT4) 2.25 uIU/mL (0.36-3.74); Total Protein 7.5 g/dL (6.4-8.2); Vitamin B12 1013 pg/mL (193-986)
[2023-02-26 14:33] LABS: C-Reactive Protein 0.23 mg/dL (0.0-0.3)
== END 2023-02-26 02:36 | disposition home or self-care (01) ==
LOC: LBO 02:35
PROVIDERS: PCP Family Medicine; Visit Provider Family Medicine
DX: G62.9 Polyneuropathy, unspecified (principal); R19.7 Diarrhea, unspecified; R51.9 Headache, unspecified; E11.9 Type 2 diabetes mellitus without complications; R93.2 Abnormal findings on diagnostic imaging of liver and biliary tract
CPT/HCPCS: 36415; 80053; 82607; 83036; 84443; 85025; 86140

== ENCOUNTER → 2023-03-08 12:25 | Outpatient (BNVA) | payer OTHER, MEDICAID, SELFPAY | PROVIDERS: PCP Family Medicine; Referring Provider Family Medicine; Visit Provider Surgery | DX: K52.9 Noninfective gastroenteritis and colitis, unspecified (principal); R10.11 Right upper quadrant pain; K82.4 Cholesterolosis of gallbladder | CPT/HCPCS: 99215; 99243 ==

== ENCOUNTER → 2023-03-24 01:51 | Outpatient (CLI) | payer OTHER, MEDICAID, SELFPAY ==
--- NOTE | 2023-03-24 07:30 | DI.NM_ITS ---
Exam(s) NM HEPATOBILIARY CCK GRP EXAM: NM HEPATOBILIARY CCK GRP CLINICAL HISTORY: postprandial ruq pain/diarrhea/gb polyp,r10.11,k82.4,k52.9. TECHNIQUE: Injected dose: 5 mCi Tc-99 mebrofenin Initial dynamic images: 60 minutes Post-Gallbladder fillin.02 mcg/kg CCK intravenously over a 30min infusion. 1 microgram CCK Additional images: 30 minute dynamic during CCK administration. COMPARISON: No exams were available for comparison FINDINGS: Normal hepatic transit time. Prompt excretion into the small bowel. Prompt excretion into the gallbladder. Gallbladder ejection fraction: 40 which is at the lower limit of normal. IMPRESSION: Gallbladder ejection fraction of 40 percent, at the lower limit of normal. SN guidelines: Gallbladder visualization should be present by 3 hours. Delayed [id number] contreras sit beyond 60 min raises the suspicion for partial common bile duct (CBD) obstruction. Gallbladder ejection fraction <35% has a good correlation with acalculous disease (i.e., chronic acal culous cholecystitis, cystic duct syndrome, sphincter of Oddi disease).
[2023-03-24] MEDS: Sincalide 5 MCG VIAL 1 MCG IJ (13:49)
== END ==
PROVIDERS: PCP Family Medicine; Visit Provider Surgery
DX: K52.9 Noninfective gastroenteritis and colitis, unspecified (principal); K82.4 Cholesterolosis of gallbladder; R10.11 Right upper quadrant pain
CPT/HCPCS: 78227; J2805

== ENCOUNTER → 2023-03-31 02:48 | Outpatient (CLI) | payer OTHER, MEDICAID, SELFPAY ==
--- NOTE | 2023-03-31 08:30 | DI.RAD_ITS ---
Exam(s) XR FOOT RT COMPLETE EXAM: XR FOOT RT COMPLETE CLINICAL HISTORY: Painful hammer toe rt foot,FOOT PAIN, M79.671,M20.41. TECHNIQUE: 2D digital imaging was performed. Three views. COMPARISON: No exams were available for comparison FINDINGS: BONES: No acute fracture is present. No bony destructive lesion is seen. Bones appear osteopenic. H eel spurs. JOINTS: No dislocation present. Hallux valgus. Mild degenerative changes 1st MTP joint. Hammertoe deformities. SOFT TISSUE: Normal. IMPRESSION: Hallux valgus and heel spurs.. DATA REPOSITORY: RADIATION DOSE DELIVERED:
== END ==
PROVIDERS: PCP Family Medicine; Visit Provider Podiatrist
DX: M20.41 Other hammer toe(s) (acquired), right foot (principal); M79.671 Pain in right foot
CPT/HCPCS: 73630

== ENCOUNTER 2023-03-31 14:09 | Outpatient (REF) | payer OTHER, MEDICAID, SELFPAY ==
[2023-03-31 13:59] LABS: C Diff PCR Negative (Negative)
== END 2023-03-31 14:10 | disposition home or self-care (01) ==
LOC: LBN 14:09
PROVIDERS: PCP Family Medicine; Visit Provider Family Medicine
DX: R93.2 Abnormal findings on diagnostic imaging of liver and biliary tract (principal); R19.7 Diarrhea, unspecified
CPT/HCPCS: 87493

== ENCOUNTER → 2023-04-05 11:00 | Outpatient (BNVA) | payer OTHER, MEDICAID, SELFPAY | PROVIDERS: PCP Family Medicine; Referring Provider Family Medicine; Visit Provider Surgery | DX: R10.11 Right upper quadrant pain (principal); K52.9 Noninfective gastroenteritis and colitis, unspecified; K82.4 Cholesterolosis of gallbladder | CPT/HCPCS: 99212; 99214 ==

== ENCOUNTER → 2023-04-23 03:16 | Outpatient (CLI) | payer OTHER, MEDICAID, SELFPAY ==
--- NOTE | 2023-04-23 07:00 | DI.MRI_ITS ---
Exam(s) MR BRAIN WO EXAM: MR BRAIN WO CLINICAL HISTORY: memory loss,r41.3 TECHNIQUE: Multiplanar multisequence MRI of the brain was performed. COMPARISON: No exams were available for comparison FINDINGS: VENTRICLES AND EXTRA AXIAL SPACES: Normal in size and morphology for the patient's age. MIDLINE SHIFT: None. CEREBRAL PARENCHYMA: No focus of restricted diffusion to suggest acute infarct. No space-occupying le chanelle identified. Mild atrophy consistent with the patient's age. No significant white matter gaston es. HEMORRHAGE: None. BRAINSTEM/CEREBELLUM: Normal. VISUALIZED PARANASAL SINUSES/MASTOIDS:A retention cyst left maxillary sinus. Vasculature: Normal flow void. PITUITARY GLAND: Unremarkable. ORBITS: Unremarkable. IMPRESSION: Unremarkable MRI of the brain. DATA REPOSITORY:
== END ==
PROVIDERS: PCP Family Medicine; Visit Provider Psychiatry & Neurology Neurology
DX: R41.3 Other amnesia (principal)
CPT/HCPCS: 70551

== ENCOUNTER 2023-05-11 10:40 | Day surgery (SDC) | payer OTHER, MEDICAID, SELFPAY ==
[2023-05-11 11:10] VITALS: BP 120/79; PULSE 67; RESP 16; TEMP 36.1; O2SAT 97
[2023-05-11] MEDS: Lactated Ringers 1,000 ML 80 ML IV (11:57)
--- NOTE | 2023-05-11 12:12 | W.SURGCON ---
Date of service: 05/11/23 Time of Service: 12:19 Assessment and Plan Assessment and plan (1) Diarrhea: Status: Chronic Assessment and plan: 72-year-old woman with chronic diarrhea warranting endoscopic assessment of the foregut and hindgut along with associated biopsies for microscopic disease assessment. Plan: Upper endoscopy and colonoscopy with biopsies Qualifiers: Diarrhea type: unspecified type Qualified Code(s): R19.7 - Diarrhea, unspecified History of Present Illness Narrative: 72-year-old woman has been having chronic diarrhea for 11 months now. She denies diet changes or new medications or any other new things in life. She has no family history of colon cancer. Prior to that she used to have normal bowel function. Her only intra-abdominal surgical history is that of an appendectomy. [facility] All Active Problems (Updated 05/11/23 @ 12:22 by Jackson Alvarez MD) Diarrhea (Chronic 09/29/16) Anxiety (Chronic 03/31/12) Cervical high risk human papillomavirus (HPV) DNA test positive (Chronic 12/17/11) 2007, 2008, 2009;colp BX., ECC benign; Insomnia (Chronic 04/12/14) Moderate obstructive sleep apnea (Chronic 01/10/16) Does not wear CPAP or BiPAP 01/10/16;SLEEP STUDY-[facility] Osteoporosis (Chronic) Smoker (Chronic 11/01/14) Wears patch Sensorineural hearing loss (Acute 02/08/14) Trochanteric bursitis of left hip (Acute) Injected: 06/16/2021; 03/25/2020 Post-traumatic osteoarthritis, left ankle and foot (Acute) Stress due to spouse with dementia (Acute) Grief (Chronic) Benign essential tremor (Acute) Nicotine dependence (Acute) as of 10/2021-07/13 ppd Toe deformity (Acute) Restless leg syndrome (Acute) Corns and callosities (Acute) Other hammer toe (acquired) (Acute) COPD (chronic obstructive pulmonary disease) (Chronic) History of total left hip arthroplasty (Acute 08/11/22) Tremor (Acute) Abdominal pain (Acute) Poor vision (Acute) Decreased hearing (Acute) Abnormal gall bladder diagnostic imaging (Acute) Headache (Acute) Neuropathy (Acute) Dementia (Chronic) MOCA Altered mental status (Acute) Postprandial RUQ pain (Acute) Chronic diarrhea (Acute) Gallbladder polyp (Acute) Memory change (Acute) Hammertoe of right foot (Acute) Hammertoe of left foot (Acute) Medical History Acute cystitis Closed displaced fracture of lateral malleolus of right fibula (09/23/15) Winter 2017 Abnormal thyroid blood test Surgical History History of total right hip replacement (02/09/19) Dr. Morrell Status post tonsillectomy colposcopy ECC BENIGN Appendectomy Family History Mother , ACCIDENTAL/FALL at age 88. Dementia Neoplasm BREAST/SKIN Father , 72 Lung cancer Sister , age 42 - hit by a car No problems noted. Sister No problems noted. Sister No problems noted. Son No problems noted. Son No problems noted. Social History Smoking/Tobacco Use Status: Current-Occasional Tobacco Type: cigarettes Tobacco: How many years used: 56 Quit status: considering quitting Second Hand Exposure: Yes Smoking risk assessment performed?: Yes Alcohol Intake: current Alcohol Intake frequency: a few times a week Alcohol type: wine Drug use: Never Substance use type: does not use Caregiver/Support person: No Household members: none Housing: house Communication Needs: Hard of Hearing Do you need help understanding health information?: Rarely Pets and animals: Yes Pets and animals: cat(s) Sexually active: No Do you think of yourself as: straight/heterosexual Current gender identity: female What is your relationship status?: never How often do you talk on the phone with friends or family?: three or more times per week How often do you get together with friends or relatives?: once per week How often do you attend cheondoism or adventist services?: 4 or more times per year Do you belong to any clubs or organized social groups?: no Panel score (0-1 are the most socially isolated patients): 2 What type of physical activity do you participate in: none Frequency: does not exercise Amanda/Protestant: Yazdanism Special amanda needs: Yes (Just want Pastor Egan TO COME PRAY WHEN DYING.) Seatbelt use: always Helmet use: No Drive intox or ride w/intox driver license examiner: No Do you feel safe at home: Yes Additional Social history: lives alone Exam Narrative Exam Narrative: General: Nontoxic, comfortable and interactive Neuro: Alert and oriented x3 Psych: Good mood and affect, good insight and understanding into her conditions Chest: Nonlabored breathing and no wheezing Heart: Regular Results Last Vital Signs Temp 97.0 F L 05/11/23 11:10 Pulse 67 05/11/23 11:10 Resp 16 05/11/23 11:10 BP 120/79 05/11/23 11:10 Pulse Ox 97 05/11/23 11:10
--- NOTE | 2023-05-11 12:17 | W.ANESPRE ---
General Info Date of Service Date Performed: 05/11/23 Height: 5 ft 9 in Weight: 62.4 kg Body Mass Index (BMI): 20.2 Surgical Procedure: Operation Date: 05/11/23 12:35 Proposed Procedure Side Surgeon p Colonoscopy/Gastroscopy Jackson Alvarez MD Meds Allergies and Home Medications Allergies Allergy/AdvReac Type Severity Reaction Status Date / Time ibuprofen Allergy Unknown ITCHING, Verified 05/11/23 11:20 FACE SWELLS Sulfa (Sulfonamide AdvReac Unknown NAUSEA Verified 05/11/23 11:20 Antibiotics) Home Medication Medication Instructions Recorded Centrum Silver Tablet 1 ea PO DAILY 09/19/12 ipratropium 20 mcg-albuterol 100 1 puff inhalation TID PRN wheezing 03/19/22 mcg/actuation mist for inhalation #4 grams (Combivent Respimat) acetaminophen 500 mg tablet 500 mg PO Q6H PRN pain #60 tabs 08/11/22 oxycodone 5 mg tablet 5 mg PO Q6H PRN severe 08/11/22 post-operative pain #12 tabs ropinirole 2 mg tablet 2 mg PO QHS #90 tabs 09/15/22 gabapentin 300 mg capsule 300 mg PO QHS #90 caps 10/06/22 trazodone 100 mg tablet 100 mg PO QHS sleep #90 tabs 10/06/22 rotigotine 3 mg/24 hour 3 mg transdermal DAILY #90 ea 10/21/22 transdermal 24 hour patch (Neupro) melatonin 5 mg tablet 5 mg PO HS PRN 12/29/22 calcium 1 tab PO DAILY 02/09/23 multivitamin-folic acid 400 1 tab PO DAILY 02/09/23 mcg-biotin 2,000 mcg tablet (Fodq-Wter-Vnnjx (lxzeyjtt-hchnn-pprguz)) memantine 5 mg tablet 5 mg PO BID #60 tabs 02/18/23 clonazepam 1 mg tablet 1 mg PO DAILY claustrophobia #2 04/20/23 tabs Current Visit Medications: Current Medications Generic Name Dose Route Start Last Admin Trade Name Freq PRN Reason Stop Dose Admin Hyoscyamine Sulfate 0.125 mg 04/13/23 10:42 Hyoscyamine 0.125 Mg Sl/Oral/Chew SL 05/13/23 10:41 DIRECTED PRN Ringer's Solution 1,000 mls @ 80 mls/hr 04/13/23 06:00 05/11/23 11:57 IV 05/12/23 23:59 80 mls/hr INFUSION [facility] Administration Ringer's Solution 1,000 mls @ 80 mls/hr 05/11/23 06:00 IV 06/09/23 23:59 INFUSION [facility] IV Miscellaneous Supplies 1 each 04/13/23 06:00 Iv Access IV 05/12/23 23:59 DIRECTED MAURICE IV Miscellaneous Supplies 1 each 05/11/23 06:00 Iv Access IV 06/09/23 23:59 DIRECTED MAURICE Ondansetron HCl 4 mg 04/13/23 10:42 Ondansetron 4 Mg/2 Ml Vial IVP 05/13/23 10:41 Q4H PRN PRN Nausea / Vomiting Sodium Chloride 0 ml 04/13/23 06:00 Normal Saline Flush 10 Ml Syr IV 05/12/23 23:59 PRN PRN Sodium Chloride 0 ml 04/13/23 06:00 Normal Saline 10 Ml Vial IJ 05/12/23 23:59 DIRECTED PRN Sodium Chloride 0 ml 05/11/23 06:00 Normal Saline Flush 10 Ml Syr IV 06/09/23 23:59 PRN PRN Sodium Chloride 0 ml 05/11/23 06:00 Normal Saline 10 Ml Vial IJ 06/09/23 23:59 DIRECTED PRN Sterile Water 0 ml 04/13/23 06:00 Water,Injection,Sterile 10 Ml Vial IJ 05/12/23 23:59 DIRECTED PRN Sterile Water 0 ml 05/11/23 06:00 Water,Injection,Sterile 10 Ml Vial IJ 06/09/23 23:59 DIRECTED PRN PFSH Active Problems Active Problems: Problem Status Onset Code Anxiety 03/31/12 F41.9 Cervical high risk human papillomavirus (HPV) DNA test positive 12/17/11 R87.810 Insomnia 04/12/14 G47.00 Moderate obstructive sleep apnea 01/10/16 G47.33 Osteoporosis M81.0 Smoker 11/01/14 F17.200 Sensorineural hearing loss 02/08/14 H90.5 Trochanteric bursitis of left hip M70.62 Post-traumatic osteoarthritis, left ankle and foot M19.172 Stress due to spouse with dementia Z63.79 Grief F43.21 Benign essential tremor G25.0 Nicotine dependence F17.200 Toe deformity M20.60 Restless leg syndrome G25.81 Corns and callosities L84 Other hammer toe (acquired) M20.40 COPD (chronic obstructive pulmonary disease) J44.9 History of total left hip arthroplasty 08/11/22 Z96.642 Tremor R25.1 Abdominal pain R10.9 Poor vision H54.7 Decreased hearing H91.90 Abnormal gall bladder diagnostic imaging R93.2 Headache R51.9 Neuropathy G62.9 Dementia F03.90 Altered mental status R41.82 Postprandial RUQ pain R10.11 Chronic diarrhea K52.9 Gallbladder polyp K82.4 Memory change R41.3 Hammertoe of right foot M20.41 Hammertoe of left foot M20.42 Medical History Medical History Acute cystitis Closed displaced fracture of lateral malleolus of right fibula (09/23/15) Winter 2017 Abnormal thyroid blood test Surgical History Surgical History History of total right hip replacement (02/09/19) Dr. Morrell Status post tonsillectomy colposcopy ECC BENIGN Appendectomy Tobacco Smoking/Tobacco Use Status: Current-Occasional Tobacco Type: cigarettes Passive smoking exposure: Yes Second hand exposure: Yes Alcohol Alcohol Intake: current Alcohol intake frequency: a few times a week Alcohol type: wine Substance Use Substance use: Never Substance use type: does not use Vital Signs and Lab Results Vital Signs Most Recent Vital Signs in EMR: Most Recent Vital Signs Temp Pulse Resp BP Pulse Ox 36.1 C L 67 16 120/79 97 05/11/23 11:10 05/11/23 11:10 05/11/23 11:10 05/11/23 11:10 05/11/23 11:10 Lab Results Blood Type / Crossmatch: No Data to Display Complete Blood Count: No Data to Display Complete Metabolic Panel: No Data to Display Liver Function Panel: No Data to Display Coagulation Panel: No Data to Display Cardiac Panel: No Data to Display Arterial Blood Gas: No Data to Display Venous Blood Gas: No Data to Display Pancreas Panel: No Data to Display Thyroid Panel: No Data to Display Infectious Disease: No Data to Display Blood Cultures: No Data to Display Toxicology Panel: No Data to Display Anesthesia Assessment and Plan Anesthesia History Personal History: No History of Anesthesia Complications Family History: No Family History of Anesthesia Complications Exercise Tolerance Exercise Tolerance: Metabolic Equivalents>4 Pertinent Negatives Pertinent Negatives: No Symptoms of GERD Cardiac & Pulmonary Exam Cardiac Exam: Normal S1/S2 Heart Sounds Pulmonary Exam: Clear Bilateral Breath Sounds Implantable Cardiac Device Does patient have a Pacemaker or an ICD?: No Airway Exam Known Difficult Airway: No Mallampati Class: 1 Mouth Opening: Normal (> 3cm) Thyromental Distance: Greater than 3 cm Neck Range of Motion: Full ROM Neck Circumference: Normal Teeth Condition: Normal Dentition ASA Classification ASA Score: ASA 2 Emergency Case?: No NPO Status NPO Status: NPO Clears >2 hours, Solids >8 hours Anesthesia Plan Resuscitation Status: Full Code Anesthesia Technique: General Anesthesia Airway Planned: Natural Airway Monitors Used: Standard Monitors
[2023-05-11 12:23] VITALS: BMI 20.2
--- NOTE | 2023-05-11 12:23 | COLE_ITS ---
Date of service: 05/11/23 Time of Service: 12:23 Colonoscopy Report Procedure Description: Procedures performed: 1. Colonoscopy with cold forceps biopsies Preoperative diagnosis: Chronic diarrhea Postoperative diagnosis: Normal terminal ileum, mild diverticulosis Surgeon: Mj Alvarez Anesthesia: Mc Indication for procedure: 72-year-old woman with new but chronic diarrhea. No family history of colon cancer. Findings: Normal terminal ileum.? The colon did not appear visually inflamed although mild diverticular changes are present throughout. Random biopsies were taken throughout the entire colon and rectum. I was unable to get biopsies of the terminal ileum despite intubating it because I could not get the biopsy forcep through the angulation of the scope. Again, it appeared completely normal visually and Crohn's disease or inflammatory bowel disease is not suspected. Surveillance/follow-up recommendations: Unlikely to be needed - per PCP Complications: None Blood loss: Minimal Prep: Excellent Specimens: Yes Procedure in detail: Written consent was obtained from the patient who was in agreement with the risks, benefits and indications of the procedure.? She was turned from upper endoscopy (see separate procedure note) and anesthesia was continued and we started the colonoscopy portion of the procedure. Digital rectal exam and visual examination was performed and within normal limits.? A well?lubricated colonoscope was advanced without difficulty all the way to the cecum identified by the ileocecal valve, and triangular folds and appendiceal orifice.? Terminal ileum was normal.? It was then slowly withdraw n.?? Retroflexion was performed in the rectum.? The findings/interventions are noted above. The scope was then removed and the patient tolerated the procedure well and was then taken back to the PACU in hemodynamically stable condition.
--- NOTE | 2023-05-11 12:23 | PDOC.DSDIS_ITS ---
Date of service: 05/11/23 Time of Service: 12:23 Discharge Plan Disposition Patient Disposition: Home Condition: Good Discharge Details Attending Provider: Jackson Alvarez Primary Care Provider: Radhika Amaro Home Meds and New Rx's Prescriptions: Continued ropinirole 2 mg tablet 2 mg PO QHS Qty: 90 3RF memantine 5 mg tablet 5 mg PO BID Qty: 60 3RF melatonin 5 mg tablet 5 mg PO HS PRN trazodone 100 mg tablet 100 mg PO QHS Qty: 90 4RF gabapentin 300 mg capsule 300 mg PO QHS Qty: 90 2RF clonazepam 1 mg tablet 1 mg PO DAILY Qty: 2 0RF Rx Instructions: take 1 hour before MRI and repeat if necessary when you arrive Lbgb-Ilkg-Mvltp (qs-WU-zxzwhp) 400-2,000 mcg tablet 1 tab PO DAILY calcium 1 tab PO DAILY CENTRUM SILVER TABLET 1 EACH tablet 1 ea PO DAILY Combivent Respimat 20-100 mcg/actuation mist 1 puff inhalation TID PRN (Reason: wheezing) Qty: 4 3RF Rx Instructions: space evenly during waking hours Neupro 3 mg/24 hour patch 24 hour 3 mg transdermal DAILY Qty: 90 4RF Patient Comments: removed at 7am acetaminophen 500 mg tablet 500 mg PO Q6H PRN (Reason: pain) Qty: 60 2RF oxycodone 5 mg tablet 5 mg PO Q6H PRN (Reason: severe post-operative pain) Qty: 12 0RF Hold Instructions: Patient Refused Rx Instructions: Take one tablet up to every 6 hours as needed for severe pain Discharge Instructions Stand Alone Forms: Colonoscopy Post Instructions Activity:: Activity as Tolerated Diet:: As Tolerated Discharge Orders Discharge Orders: Discharge Order (Routine); Ordered 04/13/23 Ordered By: Anne Mims DS: Diagnosis Discharge Diagnosis (1) Diarrhea: Status: Chronic Asessment and Plan: FINDINGS: Overall no obvious findings which would explain diarrhea. Because of microscopic conditions such as celiac disease, inflammatory bowel disease or H. pylori infection can cause diarrhea, multiple biopsies were taken all over de spite looking normal. These will be looked at under microscope and you will get called with those results in a few weeks.
--- NOTE | 2023-05-11 12:23 | W.PM.ENDDOP ---
Date of service: 05/11/23 Time of Service: 12:23 Endoscopy Report PROCEDURE DESCRIPTION: Procedures performed: 1.? Esophagogastroduodenoscopy with cold forceps biopsies Preoperative diagnosis: Chronic diarrhea Postoperative diagnosis: Chronic gastritis Surgeon: Mj Alvarez Anesthesia: Mc Indication for procedure: 72-year-old woman with chronic diarrhea Findings: - D3, D2 and D1 - normal - no inflammation or ulcers. Cold forceps biopsies taken x4 to rule out celiac disease. - Pylorus - patent.? No bile reflux visualized during procedure. - Antrum - looks mildly inflamed and with chronic appeance - biopsies taken to rule out occult H. pylori - Stomach Body - chronic gastritis/gastropathy appearance.? Biopsies taken to confirm and rule out occult H. pylori. - Fundus -? Normal.? No polyps. - Hiatus - Retroflexion shows normal hiatus. No hernia. - Esophagus - distal esophagus does not look inflamed.? No stricture or evidence of Carrillo's.? The mid and proximal esophagus was also normal. - Cords/hypopharynx - Normal OVERALL -biopsies taken to rule out microscopic disease Surveillance/follow-up recommendations: Pending biopsy results.?? Unlikely to be necessary.?? Complications: None Blood loss: Minimal Specimens:? YES Procedure in detail: Written consent was obtained from the patient who was in agreement with the risks, benefits and indications of the procedure.? We went to the endoscopy suite and laid the patient in left lateral decubitus position.? Anesthesia was administered which was tolerated well.? A timeout was performed and when we are all in agreement we began the procedure. A well?lubricated endoscope was advanced without difficulty down the esophagus, into the stomach, through a patent pylorus and into the duodenum.? It was then slowly pulled back with findings noted above. The scope was then removed and the patient tolerated the procedure well and was then turned for the colonoscopy portion of the procedure (see separate procedure note)
--- NOTE | 2023-05-11 12:47 | BOWEL_PTH ---
PATIENT: Colleen Momin LOC: [facility] U#:[id number] AGE/SX: 72/F ROOM: RE05/11/[address]: Jackson Alvarez : 1950 BED: DIS: 05/11/2023 SPEC #: [id number] RECD: 05/11/23 17:12 STATUS: CINDI RE #: [id number] SAMANTHA: 05/11/23 12:[address]: Jackson Alvarez DEPT: Surgical Specimen RECD BY: Bryanna Castaneda ENTERED: 05/11/23 17:15 SP TYPE: Bowel OTHR DR: Radhika Amaro MD, DC Tissues: 1 - BIOPSY BOWEL 2 - STOMACH BIOPSY 3 - STOMACH BIOPSY 4 - BIOPSY BOWEL Procedures: GROSS AND MICRO LEVEL 4 Comments: [id number]
[2023-05-11 13:26] VITALS: BP 122/85; PULSE 77; RESP 20; TEMP 36; O2SAT 98
--- NOTE | 2023-05-11 13:45 | W.ANESPOSTOP ---
Postoperative Evaluation Date, Time and Location Date Performed: 05/11/23 Time Performed: 13:45 Patient Location: Day Surgery Unit Vital Signs Most Recent Imported Vital Signs: Most Recent Vital Signs Temp Pulse Resp BP Pulse Ox 36.0 C L 77 20 122/85 98 05/11/23 13:26 05/11/23 13:26 05/11/23 13:26 05/11/23 13:26 05/11/23 13:26 Pain Score Most Recent Pain Score: Most Recent Pain Score Pain Level 0 05/11/23 11:10 Assessment Mental Status: Awake (Alert & Oriented to Patient Baseline) Airway and Respiratory Function: Patent airway with normal (patient baseline) respiratory exam Cardiovascular Function: Hemodynamically Stable Hydration Status: Adequately Hydrated Nausea & Vomiting: No Nausea or Vomiting Pain: Pt. Denies Any Pain Peripheral Nerve Block: Patient did not receive a nerve block
[2023-05-11 14:15] VITALS: BP 110/80; PULSE 65; RESP 17; TEMP 36.1; O2SAT 99
== END 2023-05-11 14:25 | disposition home or self-care (01) ==
PROVIDERS: PCP Family Medicine; Visit Provider Student in an Organized Health Care Education/Training Program
PROC: (CPT 45380; principal; 2023-05-11 12:30)
DX: R19.7 Diarrhea, unspecified (principal); K57.30 Diverticulosis of large intestine without perforation or abscess without bleeding; K29.50 Unspecified chronic gastritis without bleeding; K52.831 Collagenous colitis
CPT/HCPCS: 45380; 43239; 00123; 88305; J2704

== ENCOUNTER → 2023-05-13 12:30 | Outpatient (BNVA) | payer OTHER, MEDICAID, SELFPAY | PROVIDERS: PCP Family Medicine; Referring Provider Family Medicine; Visit Provider Psychiatry & Neurology Neurology | DX: G47.00 Insomnia, unspecified (principal); F41.9 Anxiety disorder, unspecified; G25.81 Restless legs syndrome; G25.0 Essential tremor; R51.9 Headache, unspecified; J44.9 Chronic obstructive pulmonary disease, unspecified; R41.3 Other amnesia | CPT/HCPCS: 99214 ==

== ENCOUNTER → 2023-06-10 11:12 | Outpatient (BNVA) | payer OTHER, MEDICAID, SELFPAY | PROVIDERS: PCP Family Medicine; Referring Provider Family Medicine; Visit Provider Surgery | DX: K82.9 Disease of gallbladder, unspecified (principal); K52.831 Collagenous colitis; G47.00 Insomnia, unspecified; M81.0 Age-related osteoporosis without current pathological fracture; F17.200 Nicotine dependence, unspecified, uncomplicated | CPT/HCPCS: 99213 ==

== ENCOUNTER 2023-08-12 15:36 | Outpatient (CLI) | payer OTHER, SELFPAY ==
--- NOTE | 2023-08-12 11:30 | DI.RAD_ITS ---
Exam(s) XR HIP LT AP LAT ONLY EXAM: XR HIP LT AP LAT ONLY CLINICAL HISTORY: ANNUAL F/U L LILY. TECHNIQUE: 2D digital imaging was performed. COMPARISON: CR XR HIP LT COMPLETE AP PELVIS from 08/24/2022 FINDINGS: Two views. There is stable position alignment of the components of the left hip prosthesis. No fracture or loos ening evident. IMPRESSION: Stable satisfactory appearance of the left hip prosthesis. DATA REPOSITORY: RADIATION DOSE DELIVERED:
== END 2023-08-12 15:37 | disposition home or self-care (01) ==
LOC: DIORS 15:36
PROVIDERS: PCP Family Medicine; Referring Provider Family Medicine; Visit Provider Student in an Organized Health Care Education/Training Program
DX: Z47.1 Aftercare following joint replacement surgery (principal); Z96.642 Presence of left artificial hip joint
CPT/HCPCS: 99213; 73502

== ENCOUNTER → 2023-12-20 12:41 | Outpatient (BNVA) | payer OTHER, SELFPAY | PROVIDERS: PCP Family Medicine; Referring Provider Family Medicine; Visit Provider Psychiatry & Neurology Neurology | DX: G47.00 Insomnia, unspecified (principal); G25.81 Restless legs syndrome; G25.0 Essential tremor; F41.9 Anxiety disorder, unspecified; R41.3 Other amnesia | CPT/HCPCS: 99213 ==

== ENCOUNTER 2024-02-21 02:46 | Outpatient (CLI) | payer OTHER, MEDICAID, SELFPAY ==
--- NOTE | 2024-02-21 07:45 | DI.DEXA_ITS ---
Exam(s) XR DEXA BONE DENSITY W/WO ASHLEY EXAM: XR DEXA BONE DENSITY W/WO ASHLEY CLINICAL HISTORY: post menopausal,screening for osteoporosis, z78.0 TECHNIQUE: COMPARISON: Comparison examination is 09/21/2007. FINDINGS: Lateral Spine Image: Unremarkable. No compression deformities identified. Left forearm: Total T-Score: -1.0 Total Z-Score: 1.5 T- and Z-scores: There is no evidence of osteoporosis. Lumbar Spine: Total T-Score: 0.7. This compares to 0.2 on the prior examination. Total Z-Score: 3.1 T- and Z-scores: Within normal limits. IMPRESSION: No evidence of osteoporosis.
== END 2024-02-21 03:06 ==
PROVIDERS: PCP Family Medicine; Visit Provider Family Medicine
DX: Z78.0 Asymptomatic menopausal state (principal)
CPT/HCPCS: 77080

== ENCOUNTER 2024-04-21 10:45 | Emergency (ER) | payer MEDICARE, MEDICAID, SELFPAY ==
[2024-04-21] VITALS (13 sets, daily range): BP systolic 115–155; BP diastolic 60–77; PULSE 56–65; RESP 11–22; TEMP 36.9; O2SAT 96–100
--- NOTE | 2024-04-21 10:45 | RT.EKG_ITS ---
APPROVED REPORT Exam: Resting ECG Reason for Exam: Chest pain Patient Location: E HR:63 bpm ECG Measurements Heart Rate 63 AXIS WY 154 P -56 QRSd 88 QRS 30 QT 428 T 21 QTc 440 Conclusion Ectopic atrial rhythm, rate 63 No interval abnormalities, no STEMI
[2024-04-21] MEDS: ACETAMINOPHEN 1,000 MG/100 ML BTL 400 MG IVPB (11:44)
[2024-04-21] MEDS: Mylanta Suspension 30 ML CUP PO (11:44)
[2024-04-21 12:17] LABS: Abs Immature Grans 0.03 10^3/uL (0.0-0.06); Absolute Basophil Count 0.01 10^3/uL (0.0-0.2); Absolute Lymphocyte Count 1.34 10^3/uL (1.2-3.4); Absolute Monocyte Count 0.35 10^3/uL (0.1-0.8); Absolute Neutrophil Count 4.81 10^3/uL (1.2-6.7); Basophils % 0.2 %; Eosinophils % 1.5 %; HCT 43.6 % (36.0-46.0); Immature Grans % 0.5 %; Lymphocytes % 20.2 %; MCH 32.3 pg (27.0-33.0); MCHC 32.1 % (32.0-36.0); MCV 101 fL (80-95); MPV 11.4 fL (8.0-11.0); Monocytes % 5.3 %; Neutrophils % 72.3 %; Platelet Count 189 10^3/uL (130-400); RBC 4.34 10^6/uL (3.93-5.22); RDW 12.7 % (11.7-14.6); RDW-SD 47.5 fL; WBC 6.64 10^3/uL (4.4-10.8)
--- NOTE | 2024-04-21 12:25 | DI.RAD_ITS ---
Exam(s) XR CHEST 2V PA LATERAL EXAM: XR CHEST 2V PA LATERAL CLINICAL HISTORY: chest pain. TECHNIQUE: 2D digital imaging was performed. COMPARISON: CR XR PORTABLE CHEST AP from 07/17/2022 FINDINGS: 2 views: Heart size is normal. The mediastinum is not widened. Left lung is clear. There is small nodular infiltrate mid right lung zone, best seen on the frontal view. Measures approximately 1 cm. No pleural effusions. No pulmonary edema. No pneumothorax. No fractures. IMPRESSION: Subtle nodular infiltrate mid right lung seen on the frontal view only. Not evident on prior chest x -ray of July 2022. Appropriate follow-up recommended. DATA REPOSITORY: RADIATION DOSE DELIVERED:
[2024-04-21 12:35] LABS: ALT 17 U/L (14-59); AST 20 U/L (15-37); Albumin 3.7 g/dL (3.4-5.0); Alkaline Phosphatase 94 U/L (46-116); Anion Gap 8.9 mmol/L (3-11); BUN 15 mg/dL (7-18); Bilirubin, Total 0.72 mg/dL (0.2-1.0); CO2 29.1 mmol/L (21.0-32.0); CREATININE 0.9 mg/dL (0.55-1.02); Chloride 105 mmol/L (98-107); Estimated GFR 66.67 (mL/min/1.73m2); Glucose 88 mg/dL (74-106); Lipase 29 U/L (16-77); Potassium 4.2 mmol/L (3.5-5.1); Sodium 143 mmol/L (136-145); Total Protein 7.4 g/dL (6.4-8.2); Troponin I 4 ng/L (<or=51)
[2024-04-21 12:50] LABS: D-Dimer 831 ng/mlFEU (<500)
[2024-04-21 12:54] LABS: Calcium 9.5 mg/dL (8.5-10.1)
--- NOTE | 2024-04-21 12:55 | DI.CT_ITS ---
Exam(s) CT CHEST PE CTA EXAM: CT CHEST PE CTA s CLINICAL HISTORY: pleuritic chest pain, elevated ddimer. TECHNIQUE: Imaging Protocol: CT angiography of the chest was performed using pulmonary embolus ana rosa col. Multi planar reconstructions were performed. CONTRAST MATERIAL: Intravenous: Omnipaque 350 Contrast volume: 100 cc COMPARISON: CT CT CHEST PE CTA from 07/17/2022 FINDINGS: CHEST: PULMONARY ARTERIES: There are no intraluminal filling defects to suggest acute pulmonary emboli. LUNGS: There are no infiltrates nor evidence of pulmonary infarction.. There are no pleural effusions . MEDIASTINUM: There is no hilar nor mediastinal adenopathy. Visualized thyroid unremarkable. CARDIAC: Heart size is upper normal although the right atrium appears somewhat enlarged. There is no pericardial effusion. The diameter of the ascending thoracic aorta is enlarged measuring 4.1 cm. T he diameter of the aortic arch is 3 cm and diameter of the proximal descending thoracic aorta is also enlarged, measuring 3.1 cm. Diameter of the descending thoracic aorta below this level is upper nor mal. There is no evidence of obvious thoracic aortic dissection there is no significant shift of th e interventricular septum. PARTIALLY VISUALIZED UPPERMOST ABDOMEN: No obvious findings OSSEOUS: No fractures. No significant osseous lesions. Prominent calcification in the anterior lung tuna ligament is noted in the lower thoracic spine.. IMPRESSION: 1. No evidence of acute pulmonary emboli. No evidence of pulmonary infarction.No pleural effusions. 2. Some prominence of the right atrium is noted 3. Prominent diameter of the thoracic aorta with ascending thoracic aorta measuring 4.1 cm. No obvio us dissection. No pericardial effusion. Called by myself to ER provider 04/21/2024 at 1:58 p.m. RADIATION DOSE DELIVERED: 69.81mGy.cm Total DLP DATA REPOSITORY: All CT scans at this facility are submitted to the National Radiology Data Registry (NRDR) Dose Index Registry (DIR) with the [employer] (A[employer]). RADIATION OPTIMIZATION: All CT scans at this facility use at least one of these dose optimization te chniques: automated exposure control; mA and/or kV adjustment per patient size (includes targeted exa ms where dose is matched to clinical indication); or iterative reconstruction.
[2024-04-21] MEDS: Omnipaque 350 MG/ML 100 ML BTL IJ (13:15)
[2024-04-21] MEDS: Normal Saline - Diluent 50 ML VIAL IJ (13:16)
[2024-04-21 14:59] LABS: Troponin I 4 ng/L (<or=51)
--- NOTE | 2024-04-22 07:41 | NUR.NOTE ---
Access chart to reconcile EKG orders to EKG's in [facility]. Nursing Note:
--- NOTE | 2024-04-22 18:27 | ED.GENADUL_ITS ---
Discharge Plan Disposition Patient Disposition: Home Condition: Stable Discharge Details Clinical Impression: Atypical chest pain, Chest wall muscle strain, Aorta aneurysm Primary Care Provider: Radhika Amaro ED Provider: Bryanna Cho Home Meds and New Rx's Prescriptions: Continued melatonin 5 mg tablet 5 mg PO HS PRN budesonide 3 mg capsule,delayed,extend.release 3 mg PO DAILY Qty: 90 1RF Rx Instructions: call me in 1 month if diarrhea not improved gabapentin 300 mg capsule 600 mg PO QHS Qty: 180 3RF ropinirole 2 mg tablet 2 mg PO QHS Qty: 90 3RF Neupro 3 mg/24 hour patch 24 hour 3 mg transdermal DAILY Qty: 90 4RF Patient Comments: removed at 7am trazodone 100 mg tablet 100 mg PO QHS Qty: 90 4RF memantine 10 mg tablet 5 mg PO BID Discharge Instructions Additional Instructions: Your heart workup is reassuring, I suspect your symptoms are musculoskeletal in nature I recommend taking Tylenol 650 every 4 hours as needed for discomfort, do not exceed 3 g of Tylenol daily You may apply Voltaren gel or ibuprofen gel topically, this is [id number] Refrain from heavy lifting or repetitive motion until your symptoms improve and I recommend calling your doctor on Wednesday for reassessment You may also use Lidoderm patches topically, 12 hours on, 12 hours off Please follow-up with with your doctor regarding lung nodules Also follow-up with your doctor regarding an enlarged thoracic aorta for continued monitoring, this is an incidental finding and is likely not contributing to your presentation today Please return immediately should you have change in pain, worsening symptoms, shortness of breath, or should any new concerns arise Referrals: Radhika Amaro MD, [place] [Primary Care Provider] - 2 days Discharge Data Discharge Date/Time-TO BE ENTERED AT DEPARTURE: 04/21/24 15:16 HPI General Date/Time Provider Initiated Documentation: 04/21/24 10:47 . HPI Narrative: This 73-year-old female presents with left-sided chest pain which started 4 days prior to arrival. Patient states that she was lifting some heavy items on Wednesday and doing lots of cleaning and thinks she has a pulled muscle as it hurts when she touches the spot or moves. She denies any history of coronary artery disease or hypertension. She denies any history of hyperlipidemia. She does smoke. She does any known early family history of coronary artery disease. She denies any calf pain or swelling, recent flights, surgeries, long drives or known history of coagulopathy per patient. Denies any hemoptysis. Related Data Home Medications ?Medication ?Instructions ?Recorded ?Confirmed melatonin 5 mg tablet 5 mg PO HS PRN 12/29/22 04/21/24 budesonide 3 mg 3 mg PO DAILY #90 caps 03/10/24 04/21/24 capsule,delayed,extended release gabapentin 300 mg capsule 600 mg (2 x 300 mg) PO QHS #180 03/10/24 04/21/24 caps ropinirole 2 mg tablet 2 mg PO QHS #90 tabs 03/10/24 04/21/24 rotigotine 3 mg/24 hour 3 mg transdermal DAILY #90 ea 03/10/24 04/21/24 transdermal 24 hour patch (Neupro) trazodone 100 mg tablet 100 mg PO QHS sleep #90 tabs 03/10/24 04/21/24 memantine 10 mg tablet 5 mg PO BID 04/21/24 04/21/24 Previous Rx's ?Medication ?Instructions ?Recorded budesonide 3 mg 3 mg PO DAILY #90 caps 03/10/24 capsule,delayed,extended release gabapentin 300 mg capsule 600 mg (2 x 300 mg) PO QHS #180 03/10/24 caps ropinirole 2 mg tablet 2 mg PO QHS #90 tabs 03/10/24 rotigotine 3 mg/24 hour 3 mg transdermal DAILY #90 ea 03/10/24 transdermal 24 hour patch (Neupro) trazodone 100 mg tablet 100 mg PO QHS sleep #90 tabs 03/10/24 Allergies Allergy/AdvReac Type Severity Reaction Status Date / Time ibuprofen Allergy Unknown ITCHING, Verified 04/17/24 11:52 FACE SWELLS Sulfa (Sulfonamide AdvReac Unknown NAUSEA Verified 04/17/24 11:52 Antibiotics) General Stated Complaint: Chest Pain CAMILLA: 3 Exam Narrative Exam Narrative: 73-year-old female alert and oriented, no acute distress, reproducible left pectoral muscle pain, no rashes or lesions, lungs clear to auscultation, cardiac rate rhythm regular, no abdominal tenderness, no abdominal bruit or obvious pulsatile mass, no CVA tenderness, distal pulses intact all 4 extremities, no calf swelling or tenderness Course Vital Signs Vital signs: Vital Signs Temperature 36.9 C 04/21/24 10:52 Pulse 65 04/21/24 10:52 Respiratory Rate 17 04/21/24 10:52 Blood Pressure 155/73 H 04/21/24 10:52 Pulse Oximetry 96 04/21/24 10:52 Temperature 36.9 C 04/21/24 10:52 Temperature Source Oral 04/21/24 10:52 Pulse 62 04/21/24 15:11 Pulse 63 04/21/24 15:11 Respiratory Rate 18 04/21/24 15:11 Respiratory Effort Normal, Non-Labored 04/21/24 12:03 Respiratory Depth Normal 04/21/24 12:03 Respiratory Pattern Normal 04/21/24 12:03 Blood Pressure 129/77 04/21/24 15:11 Blood Pressure Mean 90 04/21/24 15:11 Blood Pressure Position Supine 04/21/24 10:52 Pulse Oximetry 100 04/21/24 13:40 Oxygen Delivery Method Room Air 04/21/24 10:52 Oxygen Flow Rate 0 04/21/24 10:52 Pain Level 3 04/21/24 10:52 Lab/Test Results Lab/Test Results: Laboratory Tests Range/Units 04/21/24 04/21/24 04/21/24 11:26 12:10 13:33 WBC Cancelled 6.64 RBC Cancelled 4.34 Hgb Cancelled 14.0 Hct Cancelled 43.6 MCV Cancelled 101 H MCH Cancelled 32.3 MCHC Cancelled 32.1 RDW Cancelled 12.7 Plt Count Cancelled 189 MPV Cancelled 11.4 H Immature Gran % Cancelled 0.5 Neutrophils % Cancelled 72.3 Band Neutrophils % Cancelled Lymphocytes % Cancelled 20.2 Atypical Lymphs % Cancelled Monocytes % Cancelled 5.3 Eosinophils % Cancelled 1.5 Basophils % Cancelled 0.2 Metamyelocytes % Cancelled Myelocytes % Cancelled Promyelocytes % Cancelled Other Cells % Cancelled Nucleated RBC % Cancelled 0.0 Absolute Neutrophils Cancelled 4.81 Absolute Lymphocytes Cancelled 1.34 Absolute Monocytes Cancelled 0.35 Absolute Eosinophils Cancelled 0.10 Absolute Basophils Cancelled 0.01 RBC Morphology Cancelled Polychromasia Cancelled Hypochromasia Cancelled Poikilocytosis Cancelled Basophilic Stippling Cancelled Anisocytosis Cancelled Microcytosis Cancelled Macrocytosis Cancelled Spherocytes Cancelled Tear Drop Cells Cancelled Ovalocytes Cancelled Stomatocytes Cancelled [place] [facility] Bodies Cancelled [place] Cells/Echinocytes Cancelled Acanthocytes (Spur) Cancelled Schistocytes Cancelled D-Dimer Cancelled 831 H Sodium Cancelled 143 Potassium Cancelled 4.2 Chloride Cancelled 105 Carbon Dioxide Cancelled 29.1 Anion Gap Cancelled 8.9 BUN Cancelled 15 Creatinine Cancelled 0.9 Est GFR (CKD-EPI 2020) Cancelled 66.67 Glucose Cancelled 88 Calcium Cancelled 9.5 Total Bilirubin Cancelled 0.72 AST Cancelled 20 ALT Cancelled 17 Alkaline Phosphatase Cancelled 94 Troponin I Cancelled 4 4 Total Protein Cancelled 7.4 Albumin Cancelled 3.7 Lipase Cancelled 29 Range/Units 04/21/24 14:14 WBC RBC Hgb Hct MCV MCH MCHC RDW Plt Count MPV Immature Gran % Neutrophils % Band Neutrophils % Lymphocytes % Atypical Lymphs % Monocytes % Eosinophils % Basophils % Metamyelocytes % Myelocytes % Promyelocytes % Other Cells % Nucleated RBC % Absolute Neutrophils Absolute Lymphocytes Absolute Monocytes Absolute Eosinophils Absolute Basophils RBC Morphology Polychromasia Hypochromasia Poikilocytosis Basophilic Stippling Anisocytosis Microcytosis Macrocytosis Spherocytes Tear Drop Cells Ovalocytes Stomatocytes [facility] [facility] Bodies [place] Cells/Echinocytes Acanthocytes (Spur) Schistocytes D-Dimer Sodium Potassium Chloride Carbon Dioxide Anion Gap BUN Creatinine Est GFR (CKD-EPI 2020) Glucose Calcium Total Bilirubin AST ALT Alkaline Phosphatase Troponin I Cancelled Total Protein Albumin Lipase Medical Decision Making 73-year-old female presenting in no acute distress with left-sided chest pain with risk factors for coronary artery disease. Given that patient has had several days of constant symptoms that are worsened with palpation and movement, I have lower suspicion that this is cardiac in nature however I will perform to cardiac troponin and review EKG. EKG does not show any evidence of acute ischemia, please see attendings documentation. Patient has 2 negative troponin levels. I have very low suspicion clinically for PE as patient's CTA does not show evidence of acute abnormality. Patient does have a lung nodule which she was made aware of and an aneurysm in her thoracic aorta that she will need follow-up regarding, 4 cm. She is feeling marked improvement after receiving Tylenol and I think at this time she is stable for discharge home. I did review patient's chest x-ray prior to ordering the CTA. However given elevated D-dimer I did choose to order the CTA of patient's chest. At this time she is requesting discharge home think she stable for discharge. She is encouraged to have an outpatient stress test of course at the discretion of her doctor she does have risk factors for coronary artery disease. Encouraged to take Tylenol as needed for pain and to return immediately should she have persistent or worsening symptoms Quality:[facility] Health Related Social Needs: Health related social needs details moving in with son PFSH All Active Problems (Updated 04/21/24 @ 15:07 by JOSHUA Alaniz) Aorta aneurysm (Chronic) Chest wall muscle strain (Acute) Atypical chest pain (Acute) Collagenous colitis (Acute) Gall bladder disease (Acute) Diarrhea (Chronic 09/29/16) Anxiety (Chronic 03/31/12) Cervical high risk human papillomavirus (HPV) DNA test positive (Chronic 12/17/11) 2007, 2008, 2009;colp BX., ECC benign; Insomnia (Chronic 04/12/14) Moderate obstructive sleep apnea (Chronic 01/10/16) Does not wear CPAP or BiPAP 01/10/16;SLEEP STUDY-[facility] Osteoporosis (Chronic) Smoker (Chronic 11/01/14) Wears patch Sensorineural hearing loss (Acute 02/08/14) Trochanteric bursitis of left hip (Acute) Injected: 06/16/2021; 03/25/2020 Post-traumatic osteoarthritis, left ankle and foot (Acute) Stress due to spouse with dementia (Acute) Grief (Chronic) Benign essential tremor (Acute) Nicotine dependence (Acute) as of 10/2021-07/13 ppd Toe deformity (Acute) Restless leg syndrome (Acute) Corns and callosities (Acute) Other hammer toe (acquired) (Acute) COPD (chronic obstructive pulmonary disease) (Chronic) Tremor (Acute) Abdominal pain (Acute) Poor vision (Acute) Decreased hearing (Acute) Abnormal gall bladder diagnostic imaging (Acute) Headache (Acute) Neuropathy (Acute) Dementia (Chronic) MOCA Altered mental status (Acute) Postprandial RUQ pain (Acute) Chronic diarrhea (Acute) Gallbladder polyp (Acute) Memory change (Acute) Hammertoe of right foot (Acute) Hammertoe of left foot (Acute) Medical History Acute cystitis Closed displaced fracture of lateral malleolus of right fibula (09/23/15) Winter 2017 Abnormal thyroid blood test Surgical History History of total left hip arthroplasty (08/11/22) History of colonoscopy (~04/2023) History of total right hip replacement (02/09/19) Dr. Morrell Status post tonsillectomy colposcopy ECC BENIGN Appendectomy Family History Mother , ACCIDENTAL/FALL at age 88. Dementia Neoplasm BREAST/SKIN Father , 72 Lung cancer Sister , age 42 - hit by a car No problems noted. Sister No problems noted. Sister No problems noted. Son No problems noted. Son No problems noted. Social History Smoking/Tobacco Use Status: Current-Occasional Tobacco Type: cigarettes Tobacco: How many years used: 56 Quit status: considering quitting Second Hand Exposure: Yes Smoking risk assessment performed?: Yes Alcohol Intake: current Alcohol Intake frequency: 0-2 drinks per day Alcohol type: wine Drug use: Never Substance use type: does not use Caregiver/Support person: No Household members: none Housing: house Communication Needs: Hard of Hearing Do you need help understanding health information?: Rarely Pets and animals: Yes Pets and animals: cat(s) Sexually active: No Do you think of yourself as: straight/heterosexual Current gender identity: female What is your relationship status?: never How often do you talk on the phone with friends or family?: three or more times per week How often do you get together with friends or relatives?: once per week How often do you attend pentecostalism or lutheran services?: 4 or more times per year Do you belong to any clubs or organized social groups?: no Panel score (0-1 are the most socially isolated patients): 2 What type of physical activity do you participate in: none Frequency: does not exercise Amanda/Religious: Orthodoxy Special amanda needs: Yes (Just want Pastor Egan TO COME PRAY WHEN DYING.) Seatbelt use: always Helmet use: No Drive intox or ride w/intox certified driver examiner: No Do you feel safe at home: Yes Additional Social history: lives alone PAWSS Have you Been Recently Intoxicated or Drunk Within the Last 30 days?: Yes Have you Ever Experienced Previous Episodes of Alcohol Withdrawal?: No Have you ever Experienced Withdrawal Seizures?: No Have you ever Experienced Delirium Tremens(DT)s?: No Have you ever undergone Alcohol Rehabilitation Treatment (i.e, inpt ot outpatient treatment programs)?: No Have you ever Experienced Blackouts?: No Have you ever Combined Alcohol with other Downers within the last 90 days?: No Have you ever Combined Alcohol with any other Substance of Abuse during the last 90 days?: No Positive Blood Alcohol level on Presentation? [PCS.BAL]: No Evidence of Increased Autonomic Activity (i.e. HR>120, tremor, sweating, agitation, nausea)?: No Result: 1
== END 2024-04-21 15:16 | disposition home or self-care (01) ==
PROVIDERS: Emergency Provider Physician Assistant; PCP Family Medicine
DX: R07.89 Other chest pain (principal); S29.011A Strain of muscle and tendon of front wall of thorax, initial encounter; I71.21 Aneurysm of the ascending aorta, without rupture; X50.0XXA Overexertion from strenuous movement or load, initial encounter; Y93.89 Activity, other specified; Y92.89 Other specified places as the place of occurrence of the external cause; F17.210 Nicotine dependence, cigarettes, uncomplicated
CPT/HCPCS: 36415; 71275; 80053; 83690; 93005; 96374; 99285; 71046; 84484; 85025; 85379; 93010; 99284; J0131; J3490

== ENCOUNTER → 2024-04-24 12:55 | Outpatient (BNVA) | payer MEDICARE, MEDICAID, SELFPAY | PROVIDERS: PCP Family Medicine; Visit Provider Psychiatry & Neurology Neurology | DX: G47.00 Insomnia, unspecified (principal); G25.81 Restless legs syndrome; G25.0 Essential tremor; F41.9 Anxiety disorder, unspecified; R41.3 Other amnesia | CPT/HCPCS: 99214 ==

== ENCOUNTER → 2024-10-23 13:27 | Outpatient (BNVA) | payer MEDICARE, MEDICAID, SELFPAY | PROVIDERS: PCP Family Medicine; Referring Provider Family Medicine; Visit Provider Psychiatry & Neurology Neurology | DX: G47.00 Insomnia, unspecified (principal); G25.81 Restless legs syndrome; G25.0 Essential tremor; F41.9 Anxiety disorder, unspecified; R41.3 Other amnesia | CPT/HCPCS: 99214 ==

== ENCOUNTER 2025-03-22 03:20 | Outpatient (CLI) | payer MEDICARE, MEDICAID, SELFPAY ==
--- NOTE | 2025-03-22 13:40 | DI.RAD_ITS ---
Exam(s) XR FOOT RT COMPLETE EXAM: XR FOOT RT COMPLETE CLINICAL HISTORY: Right foot pain,M79.671. TECHNIQUE: 2D digital imaging was performed. Three views. COMPARISON: CR XR FOOT RT COMPLETE from 03/31/2023 FINDINGS: BONES: No acute fracture is present. No bony destructive lesion is seen. Moderate calcaneal spurs. JOINTS: No dislocation present. Moderate to severe hallux valgus. Mild degenerative changes of the 1st MTP joint. Hammertoe deformities, greater of the 2nd toe. SOFT TISSUE: Normal. IMPRESSION: Hallux valgus and hammertoe deformities. DATA REPOSITORY: RADIATION DOSE DELIVERED:
== END 2025-03-22 03:40 ==
PROVIDERS: PCP Family Medicine; Visit Provider Podiatrist
DX: M79.671 Pain in right foot (principal); M20.21 Hallux rigidus, right foot; M20.41 Other hammer toe(s) (acquired), right foot
CPT/HCPCS: 73630

== ENCOUNTER 2025-03-22 03:20 | Outpatient (CLI) | payer MEDICARE, MEDICAID, SELFPAY ==
--- NOTE | 2025-03-22 13:25 | DI.RAD_ITS ---
Exam(s) XR SHOULDER RT COMPLETE 2+V EXAM: XR SHOULDER RT COMPLETE 2+V CLINICAL HISTORY: right shoulder pain,M25.511. TECHNIQUE: 2D digital imaging was performed. Five views. COMPARISON: CR XR SHOULDER LT COMPLETE 2+V from 02/13/2021 FINDINGS: BONES: No acute fracture is present. No bony destructive lesion is seen. JOINTS: No dislocation present. The glenohumeral joint space is maintained. There is mild periarticular spurring. There is loss of normal distance between the acromion and humeral head consistent with chronic rotator cuff tear. There is spurring at the undersurface of the acromion. The AC joint shows no significant spurring. SOFT TISSUE: Normal. IMPRESSION: Degenerative changes of the glenohumeral joint and chronic rotator cuff tear. DATA REPOSITORY: RADIATION DOSE DELIVERED:
== END 2025-03-22 03:40 ==
LOC: DI 03:20
PROVIDERS: PCP Family Medicine; Visit Provider Family Medicine
DX: M25.511 Pain in right shoulder (principal)
CPT/HCPCS: 73030; 73630

== ENCOUNTER → 2025-04-23 13:21 | Outpatient (BNVA) | payer MEDICARE, MEDICAID, SELFPAY | PROVIDERS: PCP Family Medicine; Referring Provider Family Medicine; Visit Provider Psychiatry & Neurology Neurology | DX: G47.00 Insomnia, unspecified (principal); G25.81 Restless legs syndrome; G25.0 Essential tremor; F41.9 Anxiety disorder, unspecified; R41.3 Other amnesia; J44.9 Chronic obstructive pulmonary disease, unspecified | CPT/HCPCS: 99214 ==